=== PATIENT | male | born 1935 | race Hispanic/Latino ===

== ENCOUNTER 2019-01-02 17:19 | Inpatient (IN) | payer MEDICARE, OTHER ==
[2019-01-02] VITALS (7 sets, daily range): BP systolic 100–140; BP diastolic 44–88
[~2019-01-02] VITALS: Ht 162.6 cm; Wt 80.5 kg
[~2019-01-02 17:19] MED LIST: Z.0.AMLODIPINE BESYL PO; Z.0.ASPIRIN325 MG PO; Z.0.DIOVAN320 MG PO; Z.0.LEVOXYL50 MCG PO
--- OUTSIDE RECORDS SUMMARY | 2019-01-02 17:22 | XMS REPORT ---
Author Author [facility] Organization [facility] Address Unknown Phone Unavailable Care Team Providers Care Adoption Specialist Name Role Phone Unavailable Unavailable Payers Payer Name Policy Type Policy Number Effective Date Expiration Date Problems This patient has no known problems. Allergies, Adverse Reactions, Alerts Allergy Name Allergy Type Status Severity Reaction(s) Onset Date Inactive Date Treating Clinician Comments No Known Allergies DA Active U 2018-08-26 00:00:00 No Known Contrast Allergies DA Active U 2008-11-03 00:00:00 No Known Drug Allergies DA Active U 2008-11-03 00:00:00 No Known Food Allergies DA Active U 2008-11-03 00:00:00 No Known Other Allergies DA Active U 2008-11-03 00:00:00 Medications This patient has no known medications. Results Test Description Test Time Test Comments Text Results Atomic Results Result Comments PROTHROMBIN TIME 2018-08-26 14:17:00 PROTHROMBIN TIME PATIENT (test code=PTP) 11.1 seconds 9.0-14.0 INTERNATIONAL NORMAL RATIO (test code=INR) 0.9 0.8-1.2 The therapeutic range for oral anticoagulant therapy formost indications is an international normalized ratio (INR)of between 2.0 and 3.0. The recommended therapeutic INRrange for various clinical situations is listed below: Clinical Situation INR range Pulmonary e mbolism treatment (2.0-3.0)Venous thrombosis treatmentVenous thrombosis prophylaxis (high risk surgery)Prevention of systemic embolism from: Acute myocardial infarction Valvular heart disease Atrial fibrillation Mechanical prosthetic heart valves (2.5-3.5) THROMBOPLASTIN TIME [id number] 14:17:00* Test Item Value Reference Range Comments THROMBOPLASTIN TIME PARTIAL (test code=PTT) 29.1 seconds 25.0-36.5 BASIC METABOLIC [id number] 14:15:00* Test Item Value Reference Range Comments SODIUM (test code=NA) 136 mmol/L 136-145 POTASSIUM (test code=K) 4.6 mmol/L 3.5-5.1 CHLORIDE (test code=CL) 104.0 mmol/L 98-107 CARBON DIOXIDE (test code=CO2) 27.0 mmol/L 21-32 ANION GAP (test code=GAP) 9.6 10-20 GLUCOSE (test code=GLU) 75 mg/dL 74-106 BLOOD UREA NITROGEN (test code=BUN) 18 mg/dL 7-18 GLOMERULAR FILTRATION RATE (test code=GFR) > 60 mL/min >=60 Estimated GFR by using Modified MDRD formula.Chronic kidney disease is defined as either kidney damageor GFR <60 mL/min/1.73 m2 for >3 months. CREATININE (test code=CREAT) 0.90 mg/dL 0.7-1.3 BUN/CREATININE RATIO (test code=BUN/CREA) 21.1 10-20 CALCIUM (test code=CA) 9.1 mg/dL 8.5-10.1 BASIC METABOLIC [id number] 14:10:00* Test Item Value Reference Range Comments SODIUM (test code=NA) 136 mmol/L 136-145 POTASSIUM (test code=K) 4.6 mmol/L 3.5-5.1 CHLORIDE (test code=CL) 104.0 mmol/L 98-107 CARBON DIOXIDE (test code=CO2) mmol/L 21-32 ANION GAP (test code=GAP) 10-20 GLUCOSE (test code=GLU) mg/dL 74-106 BLOOD UREA NITROGEN (test code=BUN) mg/dL 7-18 GLOMERULAR FILTRATION RATE (test code=GFR) mL/min >=60 CREATININE (test code=CREAT) mg/dL 0.7-1.3 BUN/CREATININE RATIO (test code=BUN/CREA) 10-20 CALCIUM (test code=CA) mg/dL 8.5-10.1 CBC W/AUTO [id number] 14:06:00* Test Item Value Reference Range Comments WHITE BLOOD CELL (test code=WBC) 4.3 K/mm3 4.5-12.5 RED BLOOD CELL (test code=RBC) 4.48 mill/mm3 4.0-5.8 HEMOGLOBIN (test code=HGB) 14.4 gram/dL 13.0-17.5 HEMATOCRIT (test code=HCT) 43.9 % 42.0-52.0 MEAN CELL VOLUME (test code=MCV) 98.0 fL 80-98 MEAN CELL HGB (test code=MCH) 32.1 picogram 27.0-33.0 MEAN CELL HGB CONCETRATION (test code=MCHC) 32.8 gram/dL 33.0-36.0 RED CELL DISTRIBUTION WIDTH (test code=RDW) 12.6 % 11.6-16.2 RED CELL DISTRIBUTION WIDTH SD (test code=RDW-SD) 45.3 fL 37.0-51.0 PLATELET COUNT (test code=PLT) 179 K/mm3 150-450 MEAN PLATELET VOLUME (test code=MPV) 9.6 fL 6.7-11.0 NEUTROPHIL % (test code=NT%) 46.0 % 39.0-69.0 IMMATURE GRANULOCYTE % (test code=IG%) 0.2 % 0.0-5.0 LYMPHOCYTE % (test code=LY%) 34.4 % 25.0-55.0 MONOCYTE % (test code=MO%) 13.3 % 0.0-10.0 EOSINOPHIL % (test code=EO%) 4.9 % 0.0-5.0 BASOPHIL % (test code=BA%) 1.2 % 0.0-1.0 NUCLEATED RBC % (test code=NRBC%) 0.0 % 0-0 NEUTROPHIL # (test code=NT#) 1.98 K/mm3 1.8-7.7 IMMATURE GRANULOCYTE # (test code=IG#) 0.01 x10 3/uL 0-0.03 LYMPHOCYTE # (test code=LY#) 1.48 K/mm3 1.0-5.0 MONOCYTE # (test code=MO#) 0.57 K/mm3 0-0.8 EOSINOPHIL # (test code=EO#) 0.21 K/mm3 0.0-0.5 BASOPHIL # (test code=BA#) 0.05 K/mm3 0.0-0.2 NUCLEATED RBC # (test code=NRBC#) 0.00 K/mm3 0.0-0.1 MANUAL DIFF REQUIRED (test code=MDIFF) NO CBC W/AUTO [id number] 14:05:00* Test Item Value Reference Range Comments WHITE BLOOD CELL (test code=WBC) K/mm3 4.5-12.5 RED BLOOD CELL (test code=RBC) mill/mm3 4.0-5.8 HEMOGLOBIN (test code=HGB) 14.4 gram/dL 13.0-17.5 HEMATOCRIT (test code=HCT) 43.9 % 42.0-52.0 MEAN CELL VOLUME (test code=MCV) fL 80-98 MEAN CELL HGB (test code=MCH) picogram 27.0-33.0 MEAN CELL HGB CONCETRATION (test code=MCHC) gram/dL 33.0-36.0 RED CELL DISTRIBUTION WIDTH (test code=RDW) % 11.6-16.2 RED CELL DISTRIBUTION WIDTH SD (test code=RDW-SD) fL 37.0-51.0 PLATELET COUNT (test code=PLT) K/mm3 150-450 MEAN PLATELET VOLUME (test code=MPV) fL 6.7-11.0 NEUTROPHIL % (test code=NT%) % 39.0-69.0 IMMATURE GRANULOCYTE % (test code=IG%) % 0.0-5.0 LYMPHOCYTE % (test code=LY%) % 25.0-55.0 MONOCYTE % (test code=MO%) % 0.0-10.0 EOSINOPHIL % (test code=EO%) % 0.0-5.0 BASOPHIL % (test code=BA%) % 0.0-1.0 NEUTROPHIL # (test code=NT#) K/mm3 1.8-7.7 LYMPHOCYTE # (test code=LY#) K/mm3 1.0-5.0 MONOCYTE # (test code=MO#) K/mm3 0-0.8 EOSINOPHIL # (test code=EO#) K/mm3 0.0-0.5 BASOPHIL # (test code=BA#) K/mm3 0.0-0.2 - XR CHEST 2 [id number] 13:29:00 FAX: Red Cedeño MD [phone] [place]: O St: PRE FAX: Min Hurst MD [phone] Name: LOKI DANIELSON [facility] : 1935 Age/S: 83/M [address] [facility] Unit #: [id number] Loc: [place] [address] Phys: Min Mercer MD Acct: [id number] Dis Date: Status: PRE SDC PHONE #: [phone] Exam Date: 08/26/2018 1309 FAX #: [phone] Reason: PRE OP EXAMS: CPT CODE: [id number] XR CHEST 2 V 57999 HISTORY: PRE OP TECHNIQUE: PA and lateral chest x-ray COMPARISON: 11/02/08 FINDINGS: No airspace consolidation or pleural effusion. Cardiomegaly. Tortuous thoracic aorta with vascular calcification. Mediastinal silhouette is unremarkable. Thoracic spondylosis. IMPRESSION: No radiographic evidence of acute cardiopulmonary process. at 1327 Reported and signed by: Nisreen Ugalde D.O. CC: Red Osuna; Min Martel MD Technologist: RUHTY GOMEZ) Trnscrd Date/Time/By: 08/26/2018 (4181) : By: [email or web address] Orig Print D/T: S: 08/26/2018 (2699) PAGE 1 Signed Report
--- NOTE | 2019-01-02 18:02 | NUR ---
CALLED TO TREATMENT FOR BLOOD WORK/EKG. PATIENT IS IN CT SCAN
[2019-01-02 18:18] LABS: BASOPHILS % 0.6 % (0.0-1.0); EOSINOPHILS # (AUTO) 0.2 (0.0-0.4); EOSINOPHILS % 2.5 % (0.0-6.0); LYMPHOCYTES # (AUTO) 1.3 (1.0-3.2); LYMPHOCYTES % 20.7 % (18.0-39.1); MEAN CORPUSCULAR HEMOGLOBIN 32.5 pg (28-32); MEAN CORPUSCULAR HGB CONC 33.3 g/dL (31-35); MEAN CORPUSCULAR VOLUME 97.5 fL (81-99); MONOCYTES # (AUTO) 0.4 (0.2-0.8); MONOCYTES % 6.1 % (4.4-11.3); NEUTROPHILS # (AUTO) 4.5 (2.1-6.9); NEUTROPHILS % 69.8 % (38.7-80.0); PLATELET COUNT 137 x10e3/uL (140-360); RED CELL DISTRIBUTION WIDTH 12.2 % (11.7-14.4)
[2019-01-02 18:21] LABS: INR 0.96; PROTHROMBIN TIME 13.3 seconds (11.9-14.5)
[2019-01-02 18:22] LABS: PARTIAL THROMBOPLASTIN TIME 27.7 seconds (23.8-35.5)
[2019-01-02 18:29] LABS: ALANINE AMINOTRANSFERASE 13 IU/L (0-55); ALBUMIN 3.8 g/dL (3.5-5.0); ALBUMIN/GLOBULIN RATIO 1.3 (0.8-2.0); ALKALINE PHOSPHATASE 80 IU/L (40-150); ANION GAP 13.6 mmol/L (8-16); BLOOD UREA NITROGEN 21 mg/dL (7-26); BUN/CREATININE RATIO 20 (6-25); CALCIUM 9.4 mg/dL (8.4-10.2); CARBON DIOXIDE 26 mmol/L (22-29); CHLORIDE 102 mmol/L (98-107); CREATINE KINASE 84 IU/L (30-200); CREATININE, SERUM 1.07 mg/dL (0.72-1.25); EST GLOMERULAR FILTRATION RATE > 60 ML/MIN (60-); GLUCOSE 95 mg/dL (74-118); POTASSIUM 4.6 mmol/L (3.5-5.1); SODIUM 137 mmol/L (136-145)
[2019-01-02] MEDS ORDERED: ALTEPLASE 50 MG/VIAL (29 MILLION IU) IV ONE ×2 (18:45)
[2019-01-02] MEDS ORDERED: SODIUM CHLORIDE 0.9% 1000ML 1,000 ML IV SCH (18:54)
--- NOTE | 2019-01-02 19:05 | Diagnostic Imaging Report ---
Complete set of images available for interpretation at 6:55 PM. EXAMINATION: Head CT HISTORY: Status post fall. Left-sided weakness, evaluate for acute stroke. COMPARISON: None. TECHNIQUE: Multidetector axial images were obtained without contrast from the foramen magnum to the vertex . The images were reconstructed using brain and bone algorithms. Thin section brain images were reformatted into coronal and sagittal planes. Image quality: Motion/streaking artifact limits the evaluation of the skull base and posterior cranial fossa. Dose modulation, iterative reconstruction, and/or weight based adjustment of the mA/kV was utilized to reduce the radiation dose to as low as reasonably achievable. FINDINGS: Parenchyma: 1. Few scattered and mildly confluent periventricular white matter hypodensities, most likely nonspecific chronic microvascular ischemic changes. 2. Focal cortical and subcortical encephalomalacia in the right middle/inferior frontal gyrus and right inferior parietal lobule, likely the sequela from remote infarction. 3. No mass or hemorrhage. No CT evidence of acute territorial vascular insult. Extra-axial spaces:No abnormal density. No extra-axial fluid collections . Mild prominence of the bilateral frontal subarachnoid spaces without fluid collections. Brain volume: Slightly disproportionate bilateral parietal cortical volume both, there are facet: From remote insult as well. Ventricles: No hydrocephalus or displacement. Arteries: No density suggestive of thrombus. Dural sinuses: No abnormal density. Extra-axial spaces: No abnormal density. Foramen magnum: No mass, Chiari malformation, or basilar invagination. Sella: No obvious mass. Paranasal/mastoid sinuses: Imaged portions unremarkable. Skull/Scalp: No lytic or blastic lesions. No fractures. IMPRESSION: 1. No acute intracranial hemorrhage or cortical infarcts. 2. Chronic cortical infarcts in the right frontal and parietal lobes. 3. Mild chronic microvascular ischemic changes. Signed by: Dr. Mckenna Mayfield M.D. on 01/02/2019 7:02 PM
[2019-01-03] VITALS (21 sets, daily range): BP systolic 116–167; BP diastolic 35–116
[2019-01-03 05:18] LABS: BASOPHILS % 0.8 % (0.0-1.0); EOSINOPHILS # (AUTO) 0.3 (0.0-0.4); EOSINOPHILS % 5.8 % (0.0-6.0); HEMOGLOBIN 12.4 g/dL (14.0-18.0); LYMPHOCYTES # (AUTO) 1.8 (1.0-3.2); LYMPHOCYTES % 37.6 % (18.0-39.1); MEAN CORPUSCULAR HGB CONC 32.6 g/dL (31-35); MEAN CORPUSCULAR VOLUME 97.9 fL (81-99); MONOCYTES # (AUTO) 0.6 (0.2-0.8); NEUTROPHILS # (AUTO) 2.1 (2.1-6.9); NEUTROPHILS % 43.8 % (38.7-80.0); PLATELET COUNT 124 x10e3/uL (140-360); RED BLOOD COUNT 3.88 x10e6/uL (4.3-5.7); RED CELL DISTRIBUTION WIDTH 12.3 % (11.7-14.4)
[2019-01-03 05:34] LABS: ANION GAP 11.2 mmol/L (8-16); BLOOD UREA NITROGEN 20 mg/dL (7-26); BUN/CREATININE RATIO 23 (6-25); CARBON DIOXIDE 25 mmol/L (22-29); CHLORIDE 107 mmol/L (98-107); CREATININE, SERUM 0.87 mg/dL (0.72-1.25); EST GLOMERULAR FILTRATION RATE > 60 ML/MIN (60-); GLUCOSE 76 mg/dL (74-118); POTASSIUM 4.2 mmol/L (3.5-5.1); SODIUM 139 mmol/L (136-145)
[2019-01-03 11:04] LABS: PLATELET ESTIMATE SLIGHTLY DECREASED
[2019-01-03 11:05] LABS: PLATELET MORPHOLOGY COMMENT NORMAL
[2019-01-03] MEDS ORDERED: CETIRIZINE HCL10 M1 PO (11:37)
[2019-01-03] MEDS ORDERED: LOSARTAN POTAS100 MG PO (11:38)
[2019-01-03] MEDS ORDERED: METOPROLOL SUCC25 MG PO (12:28)
--- NOTE | 2019-01-03 14:54 | Consultation ---
DATE OF CONSULTATION: 01/03/2019 Cardiology Consultation CONSULTING PHYSICIAN: Hua Ryan MD, Interventional Cardiology. REASON FOR CONSULTATION: Stroke. HISTORY OF PRESENT ILLNESS: Mr. Mistry is an 83-year-old man with history of hypertension, dyslipidemia, and hypothyroidism, presenting with sudden onset of left-sided hemiparesis for which he received tPA in the ER. 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 Overnight, he had an episode of bradycardia into the 30s per nursing report, however, the patient was asleep at that time. He denies any episodes of lightheadedness or syncope. He denies any chest pain or shortness of breath. He has no current complaints at this point. REVIEW OF SYSTEMS: A 12-system review negative except for as noted above. ALLERGIES: NO KNOWN DRUG ALLERGIES. PAST MEDICAL HISTORY: As per HPI. CAD, PAD, carotid dz h/o L CEA SOCIAL HISTORY: Negative x3. FAMILY HISTORY: Noncontributory. PHYSICAL EXAMINATION: VITAL SIGNS: Temperature 97.2, heart rate 51, respiratory rate 18, blood pressure 128/64, and O2 saturation 96% on nasal cannula 3 L/minutes. GENERAL: In no acute distress, alert. NECK: No JVD. CHEST: Clear to auscultation. CARDIOVASCULAR: Regular rate and rhythm. Normal S1, S2. ABDOMEN: Soft, nontender. EXTREMITIES: Trace edema. CARDIOVASCULAR MEDICATIONS: Reviewed, 1. Atorvastatin 40 mg at bedtime. 2. Beta-marc and antihypertensives currently on hold and status post alteplase on tPA. LABORATORY DATA: Studies reviewed. White blood cells 4.8, hemoglobin 12.4, and platelets 124. INR 0.9. Sodium 139, potassium 4.2, chloride 107, bicarbonate 25, BUN 20, creatinine 0.8, glucose 76, calcium 9, and magnesium 2.1. ASSESSMENT: 1. Cerebrovascular accident, status post tPA. 2. Hypertension. 3. Dyslipidemia. 4. Frequent PACs on telemetry. 5. Sinus bradycardia, asymptomatic. 6. CAD: known occluded LAD (VPK TEACHER), severe heavy RCA dz 7. PAD: Severe BTK disease 8. Carotid dz h/o L CEA. RECOMMENDATIONS: 1. For now, continue telemetry monitoring and liberalize blood pressure control. 2. Continue statin. 3. Once okay with Neurology, resume aspirin 81 mg daily. 4. SCD in place. 5. Close monitoring for any confirmation of arrhythmia or afib or atrial flutter on tele. 6. Echo and carotid US reviewed: occluded R ICA, L vertebral A is not well visualized. Preserved LV systolic function. Hua Ryan MD AFV/MODSchuyler /[id number] MTDD
[2019-01-03] MEDS ORDERED: ONDANSETRON HCL INJ 2MG/ML 2ML 2 MG/ML VIAL IV PRN (15:15)
[2019-01-03] MEDS: FAMOTIDINE 20 MG TAB PO SCH (16:30)
--- NOTE | 2019-01-03 19:32 | Diagnostic Imaging Report ---
Examination: MRI BRAIN WO CONTRAST History: Weakness; stroke. Comparison studies: Head CT 01/02/2019 Technique: Sagittal T2; axial DWI, FLAIR, GRE or SWI, T1, Coronal FLAIR. Intravenous contrast: None Findings: Scalp: No abnormal signal. No masses. Bone marrow: Normal in signal intensity. Brain volume: Moderate generalized and mild biparietal volume loss. Ventricles: No hydrocephalus. Extra-axial spaces: No abnormalities. Parenchyma: There are cortical based areas of encephalomalacia and gliosis in the right middle and inferior frontal gyri, right inferior parietal lobule and lingual gyrus of the right occipital lobe. No masses, hemorrhage, or acute vascular insults. Suprasellar and sellar region: No abnormalities. Craniocervical junction: No abnormalities. The foramen magnum is patent. No Chiari malformations. Vessels: Normal flow-voids in the arteries and sinuses. Additional findings:None. IMPRESSION: 1. No acute infarct. 2. Mild chronic microvascular ischemic change. 3. Chronic cortical based infarcts, as above. Signed by: Dr. Loern Manriquez M.D. on 01/03/2019 7:29 PM
--- NOTE | 2019-01-03 19:38 | Diagnostic Imaging Report ---
Examination: MRA HEAD WO CONTRAST History: Weakness Comparison studies: None Technique: 3-D [id number] MR angiogram of the intracranial circulation was obtained. MIP images of the arteries were isolated into anterior and posterior intracranial circulations, 180 degree projections. Sagittal and coronal MPR images, and axial source images are available for evaluation. Findings: Internal carotid arteries: Patent. Anterior cerebral arteries: Patent A1 and A2. Middle cerebral arteries: Patent M1 and M2. Vertebrobasilar circulation: Absent flow related signal. Posterior cerebral arteries: Absent flow related signal. Anatomical variants: Anterior communicating arteries: Patent Posterior communicating arteries: Not visualized. Vertebral arteries:Not visualized. IMPRESSION: No flow related signal in the intracranial posterior circulation due to proximal occlusion as seen on 05/11/2014 CTA report. A conventional angiogram is recommended as stenosis has likely progressed and endovascular treatment may be necessary. Signed by: Dr. Loren Manriquez M.D. on 01/03/2019 7:35 PM
[2019-01-03] MEDS: ATORVASTATIN 40 MG TAB PO SCH (20:57)
[2019-01-03] MEDS ORDERED: ATORVASTATIN 20 MG TAB PO SCH (21:00)
--- NOTE | 2019-01-03 23:36 | Consultation ---
DATE OF CONSULTATION: 01/03/2019 Neurology Consult Note HISTORY OF PRESENT ILLNESS: Mr. Peña is an 83-year-old right-hand dominant man with past medical history significant for hypertension, hyperlipidemia, coronary artery disease, and questionable prior stroke, admitted to [facility] on January 02, 2019, with symptoms suspicious for stroke. At approximately 1500 hours on the day of admission, the patient experienced a sudden onset of dysarthria, questionable expressive aphasia, left facial droop, left hemiparesis, numbness affecting the left arm and left leg, poor balance, and impaired gait. Mr. Peña does not report a visual field cut or other disturbance, dizziness, or confusion. Shortly, after the onset of the above described symptoms, the patient's notified emergency medical services of the patient's symptoms. The reports being told by emergency medical services that the patient was "fine and did not need to go to the hospital." Approximately 2 hours after symptom onset, the patient's brought him to the emergency center at [facility] for further evaluation of his symptoms. In the emergency center at [facility], the patient's neurological examination was significant for left facial droop and left hemiparesis. A CT of the brain without contrast was performed. This study did not reveal evidence of recent large territorial ischemia or hemorrhage. The emergency center physician determined Mr. Peña was a viable candidate for treatment with intravenous thrombolytics. After conferring with me, Mr. Peña was treated with tPA 6.9 mg intravenously at 1920 hours, followed by an infusion of tPA 62.5 mg intravenously at 1941 hours. Once the infusion of intravenous thrombolytics was completed, Mr. Peña was admitted to the intensive care unit for close neurological monitoring. At present, the patient reports his symptoms have significantly improved as compared to yesterday when he presented to the emergency center at [facility]. REVIEW OF SYSTEMS: Dysarthria, questionable aphasia, left facial weakness and numbness, weakness of the left arm and left leg, numbness of the left arm and left leg, and impairment of balance and gait. PAST MEDICAL HISTORY: Hypertension, hyperlipidemia, coronary artery disease, thyroid disease, and questionable prior stroke. PAST SURGICAL HISTORY: Cardiac catheterization, left carotid endarterectomy, lumbar spine surgery, and bilateral cataract removal. PAST HOSPITALIZATIONS: Surgeries/procedures as listed. FAMILY MEDICAL HISTORY: Hypertension, coronary artery disease with myocardial infarction. SOCIAL HISTORY: Mr. Peña is . He is retired. The patient does not report current or prior tobacco or recreational drug use. Mr. Peña reports occasional alcohol use. HOME MEDICATIONS: Reviewed. Please see the list of home medications available in the electronic medical record. HOSPITAL MEDICATIONS: Reviewed. Please see the list of hospital medications available in the electronic medical record. ALLERGIES: NO KNOWN DRUG ALLERGIES. NO KNOWN FOOD ALLERGIES. NO KNOWN ALLERGIES TO LATEX. NO KNOWN ALLERGIES TO IODINE OR OTHER CONTRAST MATERIALS. PHYSICAL EXAMINATION: VITAL SIGNS: Height 64 inches, weight 171 pounds, BMI 29.4 kg/m2, blood pressure 144/62 mmHg, pulse 52 beats per minute, respiratory rate 20 breaths per minute, and oxygen saturation 97% on 2 L by nasal cannula. GENERAL: The patient is awake and alert, does not appear distressed. Overweight. HEENT: Normocephalic and atraumatic. Pupils are surgical. Moist mucous membranes. NECK: Supple. No appreciable thyromegaly. No appreciable carotid bruits. CARDIOVASCULAR: S1, S2, bradycardic, regular rhythm. No murmurs, rubs, or gallops. RESPIRATORY: Clear to auscultation bilaterally. No wheezes, rhonchi, or rales. EXTREMITIES: The skin is warm and dry. No clubbing, cyanosis, or edema. The posterior tibial and dorsalis pedis pulses are trace and symmetric. SKIN: No rashes or lesions. NEUROLOGIC: Memory/Attention: The patient is awake and alert, oriented to person, place, time, and situation. Cranial Nerves: Cranial nerve I - not tested. Cranial nerves II, III, IV, and - pupils are surgical. Extraocular movements intact. No nystagmus. Cranial nerve V - sensation to light touch and pinprick is intact in the bilateral V1 through V3 distributions. Strength of the temporalis and masseter muscles are within normal limits. Cranial nerve VII - the face is asymmetric on the left as are all facial movements. Very mild left central facial weakness is appreciated. Cranial nerve VIII - hearing is intact to finger rub bilaterally. Cranial nerves IX, X - the soft palate elevates equally and symmetrically. Cranial nerve XI - normal strength of the bilateral sternocleidomastoid and trapezius muscles. Cranial nerve XII - the tongue protrudes midline and moves symmetrically from [id number]-[id number]. Strength: Bulk is normal. Strength is 5/5 in the bilateral deltoids, biceps, triceps, wrist flexors and extensors, finger flexors and extensors, intrinsic hand muscles, hip flexors, knee flexors and extensors, ankle dorsiflexion and plantar flexion, and intrinsic foot muscles except as follows: Left triceps 4+/5, left wrist extensors 4+/5, left finger extensors 4/5, left finger flexors 4+/5, bilateral ankle dorsiflexion 4/5. Tone is normal in both arms and both legs. DTRs: Deep tendon reflexes are 2+ and symmetric at the triceps, biceps, brachioradialis, and patellas. Deep tendon reflexes are absent and symmetric at the Achilles. Plantar responses are flexor on the right and mute on the left. Sensation: Sensation is intact to light touch and pinprick in both arms and both legs. Cerebellar: Gjrehq-jqlw-xgcrra and heel-escalante movements are mildly impaired in the left arm, not within the bounds of paresis. Gait: Deferred. Speech: Spontaneous speech is mildly dysarthric without aphasia. Repetition is intact. Involuntary Movements: None. Pronator Drift: None. LABORATORY DATA: A comprehensive metabolic panel is within normal limits. The CBC with differential and platelets reveals a white blood cell count of 4.82 with a normal differential. The hemoglobin and hematocrit are 12.4 and 38.0, respectively. The platelet count is 124. The coagulation profile is within normal limits. DIAGNOSTIC STUDIES: Electrocardiogram on 01/02/2019: Atrial fibrillation with slow ventricular response at 53 beats per minute. However, the patient's lock and dam operator, Dr. Briceno, did not believe the patient experienced atrial fibrillation. CT of the brain without contrast on 01/02/2019: On my review, there is no evidence of recent large territorial ischemia, hemorrhage, mass, or mass effect. Chronic cortical infarcts are seen in the right frontal and parietal lobes. There are findings compatible with ylbe-wa-[id number] chronic small-vessel ischemic disease. Echocardiogram on 01/03/2019: Pending. Bilateral carotid artery ultrasound with Doppler on 01/03/2019: There is atherosclerosis with possible hemodynamically significant stenosis at the right internal carotid artery. Specifically, the right internal carotid artery is not visualized. There is atherosclerosis without hemodynamically significant stenosis in the left carotid artery system with possible endarterectomy noted. There is a plaque distal to the common carotid artery. Flow is antegrade in the bilateral vertebral arteries. ASSESSMENT AND PLAN: Mr. Peña is an 83-year-old right-hand dominant man with past medical history as detailed, admitted to [facility] on January 02, 2019, with symptoms suspicious for stroke, status post tPA. At present, the patient's neurological examination is significant for mild left hemiparesis. His laboratory data and other diagnostic studies have been reviewed and are documented above. RECOMMENDATIONS: Are as follows: 1. A lipid panel and hemoglobin A1c will be ordered with morning labs. 2. An MRI of the brain without contrast will be ordered. 3. An MRA of the brain and neck without contrast will be ordered to further evaluate possible hemodynamically significant stenosis in the right carotid artery system. 4. No antiplatelet or anticoagulant medications for approximately 24 hours, status post tPA. May resume treatment with aspirin 81 mg by mouth daily on January 04, 2019. As discussed with the patient's lock and dam operator, Dr. Briceno, if there is no further evidence of atrial fibrillation during the patient's hospitalization, escalation to treatment with Plavix 75 mg by mouth daily for stroke prophylaxis will be recommended. If the patient is found to have paroxysmal atrial fibrillation, anticoagulation will be recommended. 5. Allow permissive hypertension for 24-48 hours, status post stroke. In addition, the degree of stenosis in the right carotid artery system should be determined prior to normalizing blood pressure. In all likelihood, blood pressure may begin to be gradually normalized on January 04, 2019. In the interim, monitor vital signs per unit protocol. 6. The patient's goal total cholesterol is less than 200 with an LDL of less than 70. Follow up the results of the lipid panel. 7. The patient's goal hemoglobin A1c is less than 7.0. Follow up the results of the hemoglobin A1c. Tight glycemic control is recommended, while the patient is hospitalized. 8. Speech and Physical Therapy consultations will be ordered. 9. GI prophylaxis with Pepcid 20 mg by mouth twice daily with meals. DVT prophylaxis with ARTHUR hose and SCDs. Beginning on January 04, 2019, heparin 5000 units subcutaneously q.12 hours will be prescribed for DVT prophylaxis. 10. Defer treatment of the remaining medical comorbidities to the primary and other services following the patient. Thank you for this consultation. I will continue to follow the patient, while he remains in the hospital. TIME SPENT: 70 minutes. Carolyn Zuleta MD CP/VIKKI /[id number] MTDD
[2019-01-04] VITALS (24 sets, daily range): BP systolic 129–180; BP diastolic 49–110
--- NOTE | 2019-01-04 01:31 | History and Physical ---
CHIEF COMPLAINT: Slurred speech, facial drooping, weakness. HISTORY OF PRESENT ILLNESS: This gentleman is an 83-year-old male with past medical history of hypertension, hypothyroidism, who apparently came into the ED with underlying slurred speech, facial drooping, requiring tPA in the ER. The patient and the family reports that he was trying to pickle pumper a piece of paper on the ground yesterday and as he was grabbing that paper when he stood up, he noticed that he got a little lightheaded and dizzy. noticed he had facial droop and slurred speech with drooling and was concerned for stroke and he came into the ER via EMS for further management and care. While here, the ER physician evaluated the patient. The NIH score seemed to be high according to the reports and felt that tPA was necessary. The patient also had some left-sided extremity weakness as well during that evaluation by the ER physician. TPA was given and the patient was sent to the ICU for further management and care. The patient is currently doing well. He is moving all extremities. Alert and oriented x4. No slurred speech. No facial drooping and he is able to move all extremities with no complaints. The patient is now back to normal baseline with no other issues. The patient seen and evaluated at bedside on the medical floor in the ICU. He is currently doing well with no other issues at this time. Neurology has been consulted as well as Cardiology. There are some episodes of bradycardia, hence further Cardiology consultation. REVIEW OF SYSTEMS: Pertinent positives: Slurred speech, facial droop, extremity weakness. Pertinent negatives: Denies any chest pain, palpitation, nausea, vomiting, diarrhea, dysuria, hematuria, frequency, urgency, lightheadedness, dizziness, abdominal pain, headaches, shortness of breath, cough, congestion, fever, or any other complaints. The rest of the 14-point review of systems have been reviewed with the patient and are negative. ALLERGIES: NO KNOWN DRUG ALLERGIES. HOME MEDICATIONS: 1. Amlodipine 5 mg daily. 2. Losartan 100 mg daily. 3. Metoprolol extended release 25 mg daily. 4. Levothyroxine 50 mcg daily. PAST MEDICAL HISTORY: He has hypothyroidism, hypertension. PAST SURGICAL HISTORY: Reports none. FAMILY HISTORY: Hypertension and diabetes. SOCIAL HISTORY: No drugs. No alcohol. Does not smoke. . He is . Good social support. LABORATORY FINDINGS: Show white count 4.8, hemoglobin 12.4, hematocrit of 38, platelets of 124. Coagulation PT 13, INR 0.96, PTT 27.7. Chemistry; sodium was 137, potassium 4.2, chloride 107, bicarb 25, anion gap is 11. BUN is 20, creatinine is 0.87, glucose is 76. Calcium is 9, magnesium 2.1. LFTs were normal. Troponins were negative. Albumin was 3.8. MICROBIOLOGY: None. IMAGING STUDIES: CT brain shows no acute intracranial hemorrhage or cortical infarct. 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 Mild chronic microvascular ischemic changes. PHYSICAL EXAMINATION: VITAL SIGNS: Temperature is 97.2, pulse is 52, respiratory rate is 18, blood pressure is 155/66, pulse ox 97% on 3 L nasal cannula. GENERAL: Not in acute distress. Alert and oriented x3. Cooperative on examination. HEENT: Head is normocephalic and atraumatic. Eyes; pupils are equal, round, and reactive to light bilaterally. Extraocular movements intact bilaterally. Throat, no evidence of any erythema or exudates in the posterior pharynx. Has poor dentition. NECK: Supple. Good range of motion. PULMONARY: Clear to auscultation bilaterally. No wheezing, no rales, no rhonchi, no crackles appreciated. CARDIOVASCULAR: Positive S1 and S2. No murmurs, rubs, or gallops appreciated. ABDOMEN: Soft, nondistended, nontender to palpation. Bowel sounds present. MUSCULOSKELETAL: Strength was 5/5 throughout. No evidence of any muscle deficits on examination. No weakness appreciated. NEUROLOGIC: Cranial nerves 2 through 12 grossly intact. No evidence of any neurological deficits on exam. SKIN: Intact. Warm to touch. Good cap refill. PSYCHIATRIC: Normal affect and mood. EXTREMITIES: No edema. Good range of motion throughout. IMPRESSION: 1. Acute cerebrovascular accident, now resolved, status post tPA given. 2. Hypertension. 3. Hypothyroidism. 4. Generalized weakness. PLAN: At this time, the patient is doing great with no deficits at all. He is status post tPA. Neurology was consulted. Aspirin and statins have been initiated. The patient is now on DVT prophylaxis per Neurology. MRI of brain will be up to Neurology. Carotid ultrasound is pending. Follow Neurology recommendations. We will go ahead and hold antihypertensive medications for now to avoid any worsening CVA if indicated. In relation to his heart rate, we will hold beta-marc. Cardiology was consulted and manage accordingly. Continue with PT and OT evaluation. He is on heparin for DVT prophylaxis. He will be on a heart healthy diet. He will also have speech therapy. MD MIKE Betts/MODL /[id number]
[2019-01-04] MEDS: ACETAMINOPHEN 325 MG TAB PO PRN (03:11)
[2019-01-04 05:48] LABS: CHOL/HDL RATIO 2.4 (3.9-4.7)
[2019-01-04] MEDS: LEVOTHYROXINE SODIUM 50 MCG TAB PO SCH (05:56)
[2019-01-04] MEDS: FAMOTIDINE 20 MG TAB PO SCH ×2 (07:33→16:33)
[2019-01-04] MEDS: ASPIRIN 81 MG ENTERIC COATED PO SCH (08:31)
[2019-01-04] MEDS: HEPARIN SOD (PORCINE) 5,000 UNIT/ML VIAL SC SCH ×2 (08:32→20:17)
[2019-01-04 10:28] LABS: CREATININE, SERUM 0.93 mg/dL (0.72-1.25)
[2019-01-04] MEDS: SENNOSIDES 8.6 MG TAB PO SCH ×2 (10:31→16:33)
[2019-01-04] MEDS ORDERED: SODIUM CHLORIDE 0.9% 100 ML 100 ML ONE (17:07)
[2019-01-04] MEDS ORDERED: IOPAMIDOL 370 MG/ML 200 ML INFUS..BTL INJ ONE (17:08)
--- NOTE | 2019-01-04 17:19 | Diagnostic Imaging Report ---
CTA NECK HISTORY: Carotid stenosis COMPARISON: CTA of the neck 05/11/2014, head CT 01/02/2019, MRI of the brain 01/03/2019 and MRA of the head 01/03/2019 TECHNIQUE: CTA of the neck was performed with intravenous iodine based contrast. Coronal, sagittal, and oblique maximum intensity projection reformations were created. One or more of the following dose reduction techniques were used: Automated exposure control, adjustment of the mA and/or kV according to patient size, and/or utilization of iterative reconstruction technique. DISCUSSION: If present, any cervical carotid stenosis will be measured as a percentage relative to the [place] artery distal to the stenosis (NASCET). Bolus streak artifacts in the left subclavian region obscure some details. There are prominent calcifications in the aortic arch and proximal great vessels Right Carotid: Moderate to severe calcified plaque at the right carotid bulb causes up to 70% focal stenosis in the proximal right internal carotid artery. The right internal carotid artery is tortuous with a retropharyngeal course. Left Carotid: Mild to moderate calcified plaque at the left carotid bulb does not cause significant stenosis. Surgical clips are seen adjacent to the proximal left external carotid artery. Right vertebral artery: Mild to moderate focal stenosis at the right vertebral artery ostium due to calcified plaque. Mild calcified plaque in the V3 segment without significant stenosis. Left vertebral artery: The left vertebral artery is occluded near the ostium. There is minimal focal reconstitution in the upper V2 segment. No other significant reconstitution is seen (including in the visualized intradural segment). The intracranial arterial vasculature is partially visualized. Right intradural vertebral artery calcified plaque is present without significant stenosis. The basilar artery is poorly opacified. The proximal posterior cerebral arteries are grossly patent, left greater than right; however, there is poor opacification of the bilateral distal posterior cerebral artery branches. Bilateral carotid siphon calcifications are present without significant stenosis. Additional findings: Both ocular lenses are thinned. There are severe degenerative changes throughout the spine. Enlarged pulmonary artery suggests pulmonary hypertension. IMPRESSION: 1. 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 There is minimal focal reconstitution in the upper V2 segment. 2. 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 3. Mild to moderate focal stenosis at the right vertebral artery ostium due to calcified plaque. 4. Moderate to severe calcified plaque at the right carotid bulb causes up to 70% focal stenosis in the proximal right internal carotid artery. 5. Mild to moderate left carotid bulb calcified plaque without significant stenosis. Signed by: Dr. Mark Carrillo M.D. on 01/04/2019 5:16 PM
--- NOTE | 2019-01-04 18:14 | Progress Note ---
DATE: 01/04/2019 Cardiology Progress Note SUBJECTIVE: Right-sided headache in the occipital area. Denies any episodes of worsening weakness, numbness, changes in speech, vision or gait since we last talked. Denies any current chest pain or shortness of breath. OBJECTIVE: VITAL SIGNS: Temperature 98.2, heart rate 50, respiratory rate 16, blood pressure 152/60, O2 saturation 97% on 3 L/minute nasal cannula. On telemetry view, he remains in sinus rhythm and sinus bradycardia with occasional PVCs. So far, no confirmation of atrial fibrillation or atrial flutter. GENERAL: In no acute distress. Alert. NECK: No JVD. CHEST: Clear to auscultation. CARDIOVASCULAR: Regular rate and rhythm. Normal S1 and S2. No S3 or S4. ABDOMEN: Soft, nontender. EXTREMITIES: Trace edema. CARDIOVASCULAR MEDICATIONS: 1. Aspirin 81 mg daily. 2. Heparin 5000 units subcu q.12 hours. 3. Atorvastatin 40 mg at bedtime. LABORATORY STUDIES: White blood cells 4.8, hemoglobin 12.4, platelets 124, and those are from yesterday. Today's creatinine is 0.9, triglycerides 70, total cholesterol 115, LDL 53, HDL 48. ASSESSMENT: 1. Cerebrovascular accident versus transient ischemic attack, status post tPA with no evidence of acute infarct on MRI. 2. Carotid disease, status post left carotid endarterectomy in the past by Dr. York and now with Doppler findings concerning for right internal carotid artery occlusion, pending confirmation with CT ongoing today. 3. Hypertension. 4. Dyslipidemia. 5. Frequent PACs. 6. Sinus bradycardia, so far asymptomatic. 7. Multivessel coronary artery disease with known occluded left anterior descending and severe stenosis and heavily calcified right coronary artery. 8. Peripheral artery disease with severe ztzxv-utb-zzil vessel disease, mostly filling via collaterals. RECOMMENDATIONS: 1. Aspirin. 2. Statin high potency. 3. DVT prophylaxis. 4. Continue on telemetry. 5. Has preserved left ventricular systolic function on echocardiogram. 6. Await confirmation of CT findings for carotid disease if completely occluded ICA. No further interventions may be warranted at this point, however, if stenosed, may need further workup. We will coordinate care with Neurology. Hua Ryan MD AFV/DENNISL /[id number]
[2019-01-04] MEDS: ATORVASTATIN 40 MG TAB PO SCH (20:15)
[2019-01-04] MEDS: HYDROCODONE/APAP 5MG-325MG TAB PO PRN (23:07)
[2019-01-05] VITALS (25 sets, daily range): BP systolic 113–179; BP diastolic 45–79
[2019-01-05] MEDS: ACETAMINOPHEN 325 MG TAB PO PRN (04:48)
[2019-01-05 05:29] LABS: BASOPHILS % 0.7 % (0.0-1.0); EOSINOPHILS # (AUTO) 0.3 (0.0-0.4); EOSINOPHILS % 4.8 % (0.0-6.0); HEMATOCRIT 38.6 % (38.2-49.6); HEMOGLOBIN 12.9 g/dL (14.0-18.0); LYMPHOCYTES # (AUTO) 1.7 (1.0-3.2); LYMPHOCYTES % 30.7 % (18.0-39.1); MEAN CORPUSCULAR HEMOGLOBIN 32.2 pg (28-32); MEAN CORPUSCULAR HGB CONC 33.4 g/dL (31-35); MEAN CORPUSCULAR VOLUME 96.3 fL (81-99); MONOCYTES # (AUTO) 0.6 (0.2-0.8); MONOCYTES % 11.1 % (4.4-11.3); NEUTROPHILS % 52.3 % (38.7-80.0); PLATELET COUNT 145 x10e3/uL (140-360); RED BLOOD COUNT 4.01 x10e6/uL (4.3-5.7); RED CELL DISTRIBUTION WIDTH 12.1 % (11.7-14.4)
[2019-01-05 06:00] LABS: ANION GAP 13.9 mmol/L (8-16); BLOOD UREA NITROGEN 18 mg/dL (7-26); BUN/CREATININE RATIO 18 (6-25); CARBON DIOXIDE 25 mmol/L (22-29); CHLORIDE 105 mmol/L (98-107); EST GLOMERULAR FILTRATION RATE > 60 ML/MIN (60-); GLUCOSE 84 mg/dL (74-118); POTASSIUM 3.9 mmol/L (3.5-5.1); SODIUM 140 mmol/L (136-145)
[2019-01-05] MEDS: LEVOTHYROXINE SODIUM 50 MCG TAB PO SCH (06:38)
[2019-01-05] MEDS: FAMOTIDINE 20 MG TAB PO SCH ×2 (07:30→17:31)
--- NOTE | 2019-01-05 08:00 | NUR ---
Patient received awake and alert and Ox3. Respirations are even and unlabored. Denies any pain or discomfort at this time. at bedside. Assisted patient with setting up his breakfast tray.
[2019-01-05] MEDS: HEPARIN SOD (PORCINE) 5,000 UNIT/ML VIAL SC SCH ×2 (09:00→21:05)
[2019-01-05] MEDS: ASPIRIN 81 MG ENTERIC COATED PO SCH (09:00)
[2019-01-05] MEDS: SENNOSIDES 8.6 MG TAB PO SCH ×2 (09:00→17:31)
--- NOTE | 2019-01-05 10:30 | NUR ---
Dr. Zuleta (Neuro) here at bedside and speaking with patient and regarding CTA results.
[2019-01-05] MEDS: AMLODIPINE BESYLATE 5 MG TAB PO SCH (10:47)
--- NOTE | 2019-01-05 15:05 | NUR ---
Visit made by the Spiritual Care Department Pastoral Visitor, Aris Huggins. PV provided pastoral presence, hospitality, and supportive listening. Pastoral Visitor informed pt/family of the scope of Complaint Investigations Officer Services and availability. [facility] Spiritual Care Department O: [phone] Pager: [phone] ([phone] calling from)
--- NOTE | 2019-01-05 21:02 | NUR ---
Dr Briceno here for rounds. Patient c/o dry eyes, new orders received. Dr. Briceno states patient is stable for transfer from ICU or even discharge home from his standpoint. Instructed patient not to resume home medication of Metoprolol upon discharge and to follow up with him in his office as outpatient
[2019-01-05] MEDS: ATORVASTATIN 40 MG TAB PO SCH (21:04)
[2019-01-05] MEDS: HYDROCODONE/APAP 5MG-325MG TAB PO PRN (21:05)
[2019-01-05] MEDS ORDERED: EYE LUBRICANT OPTH OINT 3.5GM TUBE OP PRN (21:15)
[2019-01-06] VITALS (20 sets, daily range): BP systolic 129–166; BP diastolic 64–91
--- NOTE | 2019-01-06 00:22 | Progress Note ---
DATE: 01/05/2019 Cardiology Progress Note SUBJECTIVE: Denies any chest pain or shortness of breath. Denies any new episodes of weakness, numbness, changes in speech, vision, or gait. Headache has improved. On telemetry, in sinus bradycardia with frequent PACs. No evidence of atrial fibrillation or atrial flutter so far on review of at least 48 hours of rhythm strips. Furthermore, previous EKG read by machine as atrial fibrillation was actually sinus bradycardia with frequent PACs. OBJECTIVE: VITAL SIGNS: Temperature 98.4, heart rate 56, respiratory rate 19, blood pressure 157/68, O2 saturation 95% on 3 L/minute nasal cannula. GENERAL: In no acute distress, alert. NECK: No JVD. Has supple neck. CHEST: Clear to auscultation. CARDIOVASCULAR: Regular rate and rhythm. Normal S1 and S2. No S3 or S4. Frequent extra beats. Systolic ejection murmur 2/6. ABDOMEN: Soft, nontender. EXTREMITIES: Trace edema. CARDIOVASCULAR MEDICATIONS: Reviewed. Heparin 5000 units subcu q.12 hours, atorvastatin 40 mg at bedtime, amlodipine 5 mg daily, aspirin 81 mg daily. LABORATORY DATA: White blood cells 5.6, hemoglobin 12.9, platelets 145. Sodium 140, potassium 3.9, chloride 105, bicarbonate 25, BUN 18, creatinine 1, glucose 84, hemoglobin A1c was 5.4, calcium 9, triglycerides 70, total cholesterol 115, LDL 53, HDL 48, TSH 4.1. 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 There is associated known occlusion of the vascular artery with decreased filling of the posterior cerebral arteries, right greater than left. There is mhoa-rf-cctbbkhm focal stenosis of the right vertebral artery at ostium due to calcified plaque. There is cllodwos-tq-oedsoi calcified plaque at the right carotid bulb with 70% focal stenosis of the proximal right internal carotid artery and there is abjb-sm-fqfdlmhg left carotid bulb calcified plaque without hemodynamically significant stenosis. ASSESSMENT: 1. An 83-year-old man presenting with symptoms concerning for right hemispheric transient ischemic attack/cerebrovascular accident, now status post tPA. 2. Carotid disease, status post left carotid endarterectomy in the past by Dr. York by CT angiogram with severe stenosis of the right ICA. 3. Hypertension. 4. Dyslipidemia. 5. Sinus bradycardia. 6. Frequent premature atrial contractions. 7. Multivessel coronary artery disease with known occluded LAD and severe stenosis and heavily calcified RCA, with stable angina. 8. Peripheral arterial disease with severe bgcbh-jyg-srnq vessel disease, filling mostly via collaterals. 9. Preserved left ventricular systolic function on echocardiogram done on this admission. RECOMMENDATIONS: 1. Aspirin. 2. Up titrate the statin potency. 3. If Neurology prefers, can switch on discharge aspirin to clopidogrel 75 mg daily. 4. Outpatient telemetry monitoring no atrial fibrillation develops while in the hospital, so far no confirmation of these. 5. We will have elevated risk for adverse cardiovascular outcomes with carotid surgery, particularly because of the severe baseline CAD. Unfortunately, given sinus bradycardia, he is not a current candidate for the use of beta-marc. Once permissive hypertensive period is completed, can consider up titration of amlodipine further as part of antianginal strategy as well as antihypertensive strategy. This can be further done as an outpatient. If discharged home, please instruct patient on followup with Cardiology as well as with CV Surgery and Neurology within the ensuing 1 to 2 weeks. Hua Ryan MD AFV/MODL /[id number]
[2019-01-06] MEDS: LEVOTHYROXINE SODIUM 50 MCG TAB PO SCH (05:20)
[2019-01-06] MEDS: ACETAMINOPHEN 325 MG TAB PO PRN (05:20)
[2019-01-06] MEDS: CLOPIDOGREL BISULFATE 75 MG TAB PO SCH (09:13)
[2019-01-06] MEDS: FAMOTIDINE 20 MG TAB PO SCH ×2 (09:13→16:51)
[2019-01-06] MEDS: AMLODIPINE BESYLATE 5 MG TAB PO SCH (09:13)
[2019-01-06] MEDS: SENNOSIDES 8.6 MG TAB PO SCH ×2 (09:14→16:51)
[2019-01-06] MEDS: HEPARIN SOD (PORCINE) 5,000 UNIT/ML VIAL SC SCH ×2 (09:15→21:30)
--- NOTE | 2019-01-06 16:32 | NUR ---
Report called to JOSE JUAN Kasper for Room 214.
--- NOTE | 2019-01-06 17:00 | Progress Note ---
DATE: 01/06/2019 Cardiology Progress Note SUBJECTIVE: No acute event. OBJECTIVE: VITAL SIGNS: Temperature afebrile, heart rate 52, blood pressure 162/76, respirations 13, and O2 saturation 97% on 3 liters. GENERAL: No acute distress. NECK: No JVD. CHEST: Clear to auscultation. No wheeze. CARDIOVASCULAR: Bradycardic and regular. Normal S1 and S2. Frequent ectopy. Systolic ejection murmur 2/6. ABDOMEN: Soft and nontender. EXTREMITIES: Trace edema. CARDIOVASCULAR MEDICATIONS: Please refer to chart. LABORATORY DATA: No new labs. ASSESSMENT: 1. An 83-year-old man with acute right hemispheric transient ischemic attack/cerebrovascular accident, now status post tPA. 2. Carotid artery disease, status post left carotid endarterectomy. 3. Hypertension. 4. Dyslipidemia. 5. Sinus bradycardia. 6. Multivessel coronary artery disease with known occluded left anterior descending and severe stenosis and heavily calcified right coronary artery with stable angina. 7. Peripheral arterial disease with severe below the knee vessel disease filling mostly via collaterals. 8. Chronic diastolic heart failure. RECOMMENDATIONS: 1. Continue supportive care including permissive hypertension for now. 2. Continue aspirin and statin. 3. The patient will require outpatient event monitor to evaluate for atrial fibrillation. 4. Okay to transfer to [facility] from cardiovascular standpoint. 5. We will continue to follow the patient with you. Cross cover for Dr. Hua Ryan. MD GRAY Bauman/VIKKI /[id number]
--- NOTE | 2019-01-06 18:51 | NUR ---
Transferred patient to room 214 via bed.
--- NOTE | 2019-01-06 19:30 | NUR ---
PATIENT RECEIVED. PATIENT IS RESTING IN BED, ALERT AND ORIENTED. RESP EVEN AND UNLABORED. NO ACUTE DISTRESS NOTED. TELE IN PLACE. PATIENT DENIED OF ANY PAIN OR DISCOMFORT AT THIS TIME. FAMILY AT BED SIDE. CALL LIGHT WITH REACH. BED LOW/LOCKED. CONTINUE TO MONITOR CLOSELY
[2019-01-06] MEDS: ATORVASTATIN 40 MG TAB PO SCH (20:27)
[2019-01-07] VITALS (7 sets, daily range): BP systolic 108–160; BP diastolic 60–71
[2019-01-07] MEDS: LEVOTHYROXINE SODIUM 50 MCG TAB PO SCH (05:10)
[2019-01-07] MEDS: ACETAMINOPHEN 325 MG TAB PO PRN (06:36)
[2019-01-07] MEDS: CLOPIDOGREL BISULFATE 75 MG TAB PO SCH (09:04)
[2019-01-07] MEDS: SENNOSIDES 8.6 MG TAB PO SCH ×2 (09:04→16:56)
[2019-01-07] MEDS: FAMOTIDINE 20 MG TAB PO SCH ×2 (09:04→16:56)
[2019-01-07] MEDS: HEPARIN SOD (PORCINE) 5,000 UNIT/ML VIAL SC SCH ×2 (09:05→21:30)
--- NOTE | 2019-01-07 10:33 | NUR ---
ST NOTE: Pt currently working with PT. PT reports pt coughing with breakfast and now has wet vocal quality. Requesting MBS prior to pt d/c to rule out aspiration. Handoff to JOSE JUAN Kasper
[2019-01-07] MEDS: AMLODIPINE BESYLATE 5 MG TAB PO SCH (12:29)
--- NOTE | 2019-01-07 13:12 | NUR ---
CM SPOKE TO PATIENT AND PATIENT AT BEDSIDE REGARDING HOME HEALTH, HOME OXYGEN AND DME ORDERED BY MD. WE ARE PENDING HOME O2 EVAL BY RESPIRATORY THERAPY. PATIENT GIVEN CHOICES FOR HOME HEALTH AND DME COMPANIES. PATIENT REQUEST [facility] SO THEY CAN HAVE DME PRIOR TO DISCHARGE AND PATIENT CHOSE [facility] FOR HOME HEALTH SERVICES. [facility] UNABLE TO TAKE PATIENT INSURANCE. PATIENT AGREED TO [facility]. CLINICAL SENT TO [facility] AND [facility] DELIVERED TO BEDSIDE. [facility] (P) [phone] (F) [phone]
--- NOTE | 2019-01-07 13:12 | NUR ---
DISCHARGE DISPOSITION PATIENT DISCHARGING HOME WITH HOME HEALTH AND DME ([facility]): [facility] (P) [phone] (F) [phone]
--- NOTE | 2019-01-07 16:31 | Progress Note ---
DATE: 01/07/2019 Cardiology Progress Note SUBJECTIVE: No acute events. OBJECTIVE: VITAL SIGNS: Temperature is 97.9, heart rate is 59, blood pressure is 147/67, and respirations 20. GENERAL: No acute distress. NECK: No JVD. CHEST: Clear to auscultation. No wheeze. CARDIOVASCULAR: Bradycardic and regular. Normal S1 and S2. Soft systolic ejection murmur. ABDOMEN: Soft and nontender. EXTREMITIES: Trace edema. CARDIOVASCULAR MEDICATIONS: Please refer to chart. LABORATORY DATA: No new labs. ASSESSMENT: 1. An 83-year-old man with acute right hemispheric transient ischemic attack/cerebrovascular event, now status post tPA. 2. Carotid artery disease, status post left carotid endarterectomy. 3. Hypertension. 4. Dyslipidemia. 5. Sinus bradycardia. 6. Multivessel coronary artery disease with known occluded left anterior descending and severe stenosis and heavily calcified right coronary artery with stable angina. 7. Peripheral arterial disease with severe below the knee vessel disease filling mostly via collaterals. 8. Chronic diastolic heart failure. RECOMMENDATIONS: 1. The patient has been transferred to telemetry from ICU and is hemodynamically stable. Continue current regimens. Blood pressure is stable. 2. Continue aspirin and statin. 3. The patient will require outpatient event monitor to evaluate for atrial fibrillation. 4. The patient will require follow up with cardiovascular surgeon, Dr. York for evaluation of carotid artery disease to determine if the patient will benefit from CEA or carotid stenting. 5. Okay to DC from Cardiology standpoint with clinic followup in 2 weeks. Cross cover for Dr. Hua Ryan. MD GRAY Bauman/VIKKI /[id number]
[2019-01-07] MEDS: ATORVASTATIN 40 MG TAB PO SCH (21:30)
[2019-01-08 00:42] VITALS: BP 142/61
[2019-01-08] MEDS: LEVOTHYROXINE SODIUM 50 MCG TAB PO SCH (05:52)
[2019-01-08 06:22] VITALS: BP 151/64
--- NOTE | 2019-01-08 07:05 | NUR ---
RECEIVED PATIENT AWAKE RESTING IN BED NO SIGNS OF DISTRESS. BED LOW, WHEELS LOCKED, SIDE RAILS X2. CALL LIGHT IN REACH WILL CONTINUE TO MONITOR PATIENT.
[2019-01-08 08:51] VITALS: BP 129/59
[2019-01-08] MEDS: FAMOTIDINE 20 MG TAB PO SCH (09:59)
[2019-01-08] MEDS: AMLODIPINE BESYLATE 5 MG TAB PO SCH (09:59)
[2019-01-08] MEDS: SENNOSIDES 8.6 MG TAB PO SCH (09:59)
[2019-01-08] MEDS: CLOPIDOGREL BISULFATE 75 MG TAB PO SCH (09:59)
[2019-01-08] MEDS: HEPARIN SOD (PORCINE) 5,000 UNIT/ML VIAL SC SCH (10:43)
[2019-01-08] MEDS ORDERED: PLAVIX75 MG PO (10:45)
[2019-01-08] MEDS ORDERED: LIPITOR20 MG PO (10:45)
[2019-01-08] MEDS ORDERED: SENNA S TABLET1 EACH PO (10:46)
--- NOTE | 2019-01-08 11:10 | NUR ---
REMOVED PATIENTS IV. CATHETER TIP INTACT AND PRESSURE DRESSING APPLIED.
--- NOTE | 2019-01-08 12:02 | NUR ---
PATIENT DISCHARGED FROM FACILITY. PATIENT GATHERED ALL PERSONAL BELONGINGS, DISCHARGE INSTRUCTIONS, AND FOLLOW UP INFORMATION. LEFT UNIT IN WHEELCHAIR AND WENT HOME VIA PRIVATE AUTO. NO SIGNS OF DISTRESS WHEN LEAVING FACILITY.
[2019-01-08 13:07] VITALS: BP 175/92
== END 2019-01-08 12:03 | disposition home health service (06) | DRG 62 ==
LOC: ER 17:19 → ERHOLD 19:32 → ICU 20:00 → MED/SURG2 01-06 18:35
PROVIDERS: ADMIT Internal Medicine; ATTEND Internal Medicine
DX: I63.511 Cerebral infarction due to unspecified occlusion or stenosis of right middle cerebral artery (principal); G81.94 Hemiplegia, unspecified affecting left nondominant side; I50.32 Chronic diastolic (congestive) heart failure; R29.810 Facial weakness; E78.00 Pure hypercholesterolemia, unspecified; E03.9 Hypothyroidism, unspecified; I25.10 Atherosclerotic heart disease of native coronary artery without angina pectoris; Z82.49 Family history of ischemic heart disease and other diseases of the circulatory system; I73.9 Peripheral vascular disease, unspecified; R00.1 Bradycardia, unspecified; I49.1 Atrial premature depolarization; I11.0 Hypertensive heart disease with heart failure; I65.23 Occlusion and stenosis of bilateral carotid arteries
CPT/HCPCS: 36415; 70450; 70498; 70544; 70551; 80048; 80053; 80061; 82550; 82553; 82565; 82948; 83036; 83735; 84443; 84484; 84520; 85025; 85610; 85730; 93005; 93306; 93880; 97139; 99284; J1644; J7030; Q9967

== ENCOUNTER 2019-02-18 09:29 | Inpatient (IN) | payer MEDICARE ==
[2019-02-12 14:53] LABS: BASOPHILS # (AUTO) 0.1 (0.0-0.1); BASOPHILS % 1.1 % (0.0-1.0); EOSINOPHILS # (AUTO) 0.4 (0.0-0.4); EOSINOPHILS % 7.4 % (0.0-6.0); HEMATOCRIT 39.3 % (38.2-49.6); HEMOGLOBIN 13.1 g/dL (14.0-18.0); LYMPHOCYTES # (AUTO) 1.5 (1.0-3.2); LYMPHOCYTES % 30.7 % (18.0-39.1); MEAN CORPUSCULAR HEMOGLOBIN 32.4 pg (28-32); MEAN CORPUSCULAR HGB CONC 33.3 g/dL (31-35); MEAN CORPUSCULAR VOLUME 97.3 fL (81-99); MONOCYTES # (AUTO) 0.6 (0.2-0.8); MONOCYTES % 12.2 % (4.4-11.3); NEUTROPHILS # (AUTO) 2.3 (2.1-6.9); NEUTROPHILS % 48.4 % (38.7-80.0); PLATELET COUNT 155 x10e3/uL (140-360); RED BLOOD COUNT 4.04 x10e6/uL (4.3-5.7); RED CELL DISTRIBUTION WIDTH 12.2 % (11.7-14.4)
[2019-02-12 15:03] LABS: INR 0.99; PROTHROMBIN TIME 13.6 seconds (11.9-14.5)
[2019-02-12 15:04] LABS: PARTIAL THROMBOPLASTIN TIME 30.8 seconds (23.8-35.5)
[2019-02-12 15:10] LABS: ANION GAP 12.3 mmol/L (8-16); BLOOD UREA NITROGEN 16 mg/dL (7-26); BUN/CREATININE RATIO 19 (6-25); CALCIUM 9.5 mg/dL (8.4-10.2); CARBON DIOXIDE 25 mmol/L (22-29); CHLORIDE 102 mmol/L (98-107); CREATININE, SERUM 0.83 mg/dL (0.72-1.25); EST GLOMERULAR FILTRATION RATE > 60 ML/MIN (60-); GLUCOSE 80 mg/dL (74-118); POTASSIUM 4.3 mmol/L (3.5-5.1); SODIUM 135 mmol/L (136-145)
--- NOTE | 2019-02-12 15:34 | Diagnostic Imaging Report ---
Chest, 2 views, 02/12/2019. History: Preop, carotid stenosis. Comparison: None available. Findings: The cardiomediastinal silhouette and pulmonary vasculature are within normal limits. Linear opacities are present at the right lung base. The lungs are otherwise clear without evidence of consolidation or pleural effusion. Degenerative changes are present throughout the thoracic spine. There are no acute osseous or soft tissue abnormalities. Impression: Right lower lobe atelectasis. Signed by: Giuseppe Rodrigues on 02/12/2019 3:31 PM
[~2019-02-18] VITALS: Ht 165.1 cm; Wt 78.5 kg
[~2019-02-18 09:29] MED LIST changes: +CETIRIZINE HCL10 M1 PO; +LIPITOR20 MG PO; +LOSARTAN POTAS100 MG PO; +METOPROLOL SUCC25 MG PO; +PLAVIX75 MG PO; +SENNA S TABLET1 EACH PO
[2019-02-18] MEDS ORDERED: LIDOCAINE HCL 1% 2 ML AMP ONE (11:35)
[2019-02-18] MEDS ORDERED: PROTAMINE SULFATE 10 MG/ML 5 ML VIAL ONE (11:35)
[2019-02-18] MEDS ORDERED: HEPARIN SOD (PORCINE) 1000 UNIT/ML 30ML ONE (11:35)
[2019-02-18] MEDS ORDERED: MUPIROCIN 2% OINT 22 GM TUBE ONE (11:36)
[2019-02-18] MEDS ORDERED: SODIUM CHLORIDE 0.9% 500ML 500 ML ONE (11:36)
[2019-02-18] MEDS ORDERED: HEPARIN SOD/SOD CHLORIDE 1,000 ML ONE (11:37)
[2019-02-18] MEDS ORDERED: THROMBIN FOR SOLN 5,000 UNIT VIAL ONE ×2 (11:49→11:50)
[2019-02-18] MEDS ORDERED: NICARDIPINE HCL SOLN 10 ML ONE (14:17)
[2019-02-18] MEDS ORDERED: NOREPINEPHRINE INJ 4MG/4ML 4 ML ONE (14:20)
[2019-02-18] MEDS ORDERED: SODIUM CHLORIDE 0.9% 50ML 100 ML ONE (14:21)
[2019-02-18] MEDS ORDERED: ONDANSETRON HCL INJ 2MG/ML 2ML 2 MG/ML VIAL ONE (17:46)
[2019-02-18] MEDS ORDERED: VASOPRESSIN INJ 20 UNIT/ML VIAL ONE (17:46)
[2019-02-18] MEDS ORDERED: ESMOLOL HCL 100MG/10ML 10 MG/ML VIAL ONE (17:46)
[2019-02-18] MEDS ORDERED: ACETAMINOPHEN 1000 MG/100 ML IV ONE (17:46)
[2019-02-18] MEDS ORDERED: ROCURONIUM BROMIDE 10 MG/ML 5ML VIAL ONE (17:46)
[2019-02-18] MEDS ORDERED: PROPOFOL IV EMULSION 10 MG/ML 20 ML VIAL ONE (17:46)
[2019-02-18] MEDS ORDERED: DEXAMETHASONE SOD PHOS INJ 4 MG/ML VIAL ONE (17:46)
[2019-02-18] MEDS ORDERED: NEOSTIGMINE 5 MG/5ML SYR ONE (17:46)
[2019-02-18] MEDS ORDERED: GLYCOPYRROLATE INJ 1MG/ 5 ML SYR ONE (17:46)
[2019-02-18] MEDS ORDERED: DESFLURANE 240 ML BTL INH ONE (17:46)
[2019-02-18] MEDS ORDERED: LIDOCAINE HCL (LTA) 4 ML SOLN ONE (18:10)
[2019-02-18] MEDS ORDERED: FENTANYL CITRATE/PF 100MCG/2 ML INJ ONE ×2 (18:30→22:27)
[2019-02-18] MEDS ORDERED: MIDAZOLAM HCL 2 MG/2 ML VIAL ONE (18:30)
[2019-02-18] MEDS ORDERED: HYDROMORPHONE 2MG/ML 2 MG/ML ML ONE ×2 (20:42→22:08)
[2019-02-18] MEDS ORDERED: ACETAMINOPHEN 1000 MG/100 ML 100 ML IV ONE (22:09)
[2019-02-18] MEDS ORDERED: HYDRALAZINE HCL 20 MG/ML VIAL ONE (22:27)
[2019-02-18 22:45] VITALS: BP_SYST 107; BP_SYST 150; BP_DIAS 45; BP_DIAS 69
--- NOTE | 2019-02-18 22:45 | NUR ---
Report received from [facility] [employer]. Pt arrived, AAO x4, no complaints at this time. Dr. Schuyler Brambila notified of pt's arrival and consult. aware of pt.
[2019-02-18] MEDS ORDERED: LABETALOL HCL 5 MG/ML 20ML VIAL IV PRN (23:00)
[2019-02-18] MEDS ORDERED: HYDROCODONE/APAP 5MG-325MG TAB PO PRN (23:15)
[2019-02-18] MEDS ORDERED: SODIUM CHLORIDE 0.9% 1000ML 1,000 ML IV SCH (23:15)
[2019-02-18] MEDS ORDERED: ONDANSETRON HCL INJ 2MG/ML 2ML 2 MG/ML VIAL IV PRN (23:15)
[2019-02-18 23:30] VITALS: BP 104/52
[2019-02-18 23:49] VITALS: BP 111/48
[2019-02-18] MEDS ORDERED: CEFAZOLIN SOD 1 GM/NS 50ML 50 ML IV ONE (23:57)
[2019-02-19] VITALS (22 sets, daily range): BP systolic 103–160; BP diastolic 46–116
[2019-02-19] MEDS ORDERED: CEFAZOLIN SOD 1 GM VIAL IV NR
[2019-02-19] MEDS ORDERED: ACETAMINOPHEN/CODEINE 300MG - 30MG TAB PO PRN (00:15)
[2019-02-19] MEDS: MORPHINE SULFATE INJ 4 MG/ML INJ 1ML IV PRN ×2 (02:16→05:20)
[2019-02-19 05:26] LABS: BASOPHILS % 0.2 % (0.0-1.0); HEMATOCRIT 33.4 % (38.2-49.6); HEMOGLOBIN 11.1 g/dL (14.0-18.0); LYMPHOCYTES # (AUTO) 0.7 (1.0-3.2); LYMPHOCYTES % 11.3 % (18.0-39.1); MEAN CORPUSCULAR HGB CONC 33.2 g/dL (31-35); MEAN CORPUSCULAR VOLUME 96.3 fL (81-99); MONOCYTES # (AUTO) 0.1 (0.2-0.8); MONOCYTES % 2.2 % (4.4-11.3); NEUTROPHILS # (AUTO) 5.6 (2.1-6.9); NEUTROPHILS % 86.1 % (38.7-80.0); PLATELET COUNT 135 x10e3/uL (140-360); RED BLOOD COUNT 3.47 x10e6/uL (4.3-5.7); RED CELL DISTRIBUTION WIDTH 12.3 % (11.7-14.4)
[2019-02-19 05:34] LABS: ANION GAP 16.8 mmol/L (8-16); BLOOD UREA NITROGEN 20 mg/dL (7-26); BUN/CREATININE RATIO 26 (6-25); CALCIUM 7.6 mg/dL (8.4-10.2); CARBON DIOXIDE 21 mmol/L (22-29); CHLORIDE 108 mmol/L (98-107); CREATININE, SERUM 0.76 mg/dL (0.72-1.25); EST GLOMERULAR FILTRATION RATE > 60 ML/MIN (60-); GLUCOSE 109 mg/dL (74-118); POTASSIUM 3.8 mmol/L (3.5-5.1); SODIUM 142 mmol/L (136-145)
--- NOTE | 2019-02-19 06:44 | NUR ---
Pt having trouble urinating, bladder scan showed [address] Schuyler Brambila notified. Ordered to insert dietrich.
[2019-02-19] MEDS ORDERED: SENNA-S TABLET PO PRN (07:45)
--- NOTE | 2019-02-19 08:44 | Pre Op History & Physical ---
HISTORY OF PRESENT ILLNESS: The patient is an 83-year-old man. He has a history of carotid artery disease and a prior cerebrovascular accident in the past. He had a prior left carotid endarterectomy and now requires treatment for a right sided carotid artery stenosis. He went to the operating room yesterday. He tolerated the procedure well. He had minimal blood loss. A Dacron patch was used. The patient was sent to the ICU postoperatively. He had some urinary retention and had to have a [place] placed. PAST SURGICAL HISTORY: 1. Status post left carotid endarterectomy. 2. Status post right carotid endarterectomy. PAST MEDICAL HISTORY: 1. Hypertension. 2. Coronary artery disease. 3. Hyperlipidemia. SOCIAL HISTORY: The patient is here with his . His son is a dentist in the community. He is not an active smoker. He is not a drinker. FAMILY HISTORY: Family history is noncontributory. ALLERGIES: THERE ARE NO KNOWN DRUG ALLERGIES. REVIEW OF SYSTEMS: The patient has no fever. He has no headache. He has some incisional pain on the right side. He has no neck pain. He is not having any chest pain. He has no difficulty breathing. He has no abdominal pain. He did have some urinary retention. He has no leg edema. PHYSICAL EXAMINATION: VITAL SIGNS: The patient is afebrile. The blood pressure is 115/80. HEENT: Shows no facial swelling or erythema. Mucous membranes are dry. He has a bandage over the carotid surgery. CARDIAC: Reveals regular rate and rhythm with normal S1, S2. LUNGS: Auscultation of lungs shows clear breath sounds bilaterally. There is no wheezing. ABDOMEN: Soft and nontender. There is no rebound or guarding. EXTREMITIES: Show no leg edema or calf tenderness. There is no cyanosis or clubbing. SKIN: Shows no rashes. NEUROLOGICAL: Shows no focal abnormalities. LABORATORY DATA: Bicarbonate 21, other electrolytes are within normal limits. Hemoglobin is 11.1 and platelet count is 135. RADIOGRAPHIC DATA: Chest x-ray shows some right lower lobe atelectasis. IMPRESSION: 1. Postoperative urinary retention. 2. Hypertension. 3. Recent carotid endarterectomy. 4. Hypercholesterolemia. PLAN: 1. Remove A-line and ambulate patient. 2. Urology consultation. 3. Continue postoperative care. MD DENVER King/DENNISL /[id number]
[2019-02-19] MEDS: LOSARTAN POTASSIUM 100 MG TAB PO SCH (08:52)
[2019-02-19] MEDS: MUPIROCIN 2% OINT 22 GM TUBE TOP SCH ×2 (08:52→16:13)
[2019-02-19] MEDS: LEVOTHYROXINE SODIUM 50 MCG TAB PO SCH (08:53)
[2019-02-19] MEDS ORDERED: CLOPIDOGREL BISULFATE 75 MG TAB PO SCH (09:00)
[2019-02-19] MEDS ORDERED: AMLODIPINE BESYLATE 5 MG TAB PO SCH (09:00)
[2019-02-19] MEDS ORDERED: ENOXAPARIN SOD INJ 40 MG/0.4 ML SYR SC SCH (09:00)
--- NOTE | 2019-02-19 19:57 | NUR ---
Report given to Magaly Arroyo RN at 1925. Patient transferred to [facility] in bed, accompanied by RN, with no signs of acute distress. Family at bedside with patient belongings.
--- NOTE | 2019-02-19 20:10 | NUR ---
Report received from JOSE JUAN Ramirez. Patient transferred by bed @1950. Denied pain and no SOB. Respiration even and unlabored. Patient had continued on oxygen 4liters via nasal canula, Spo2 maintained 99%. Family in the room. Patient and family instructed to call for help, verbalized and understand. Bed in lower position,locked. Call monsalve within reach. Will continue to monitor.
[2019-02-19] MEDS ORDERED: TAMSULOSIN HCL 0.4 MG CAP PO SCH (21:00)
[2019-02-19] MEDS ORDERED: ATORVASTATIN 40 MG TAB PO SCH (21:00)
[2019-02-20 04:16] VITALS: BP 143/89
[2019-02-20] MEDS: LEVOTHYROXINE SODIUM 50 MCG TAB PO SCH (05:26)
--- NOTE | 2019-02-20 05:29 | NUR ---
Patient assisted to give bed bath at this time. Patient tolerated well. Will continue to monitor. Addendum: 02/20/19 at 0530 by Magaly Arroyo RN wrong charting
--- NOTE | 2019-02-20 05:30 | NUR ---
Patient assisted to give bed bath at this time and assisted to changed linen/gown/pads. Patient tolerated well. Will continue to monitor.
[2019-02-20] MEDS ORDERED: ONDANSETRON HCL 4 MG ORAL DISINTEGRATING TAB PO PRN (06:00)
[2019-02-20 07:00] VITALS: BP 156/68
--- NOTE | 2019-02-20 07:00 | NUR ---
Report given to oncoming nurse Abigail.
--- NOTE | 2019-02-20 08:24 | Progress Note ---
DATE: SUBJECTIVE: The patient had urinary retention yesterday. He required a Almonte. He saw urologist. He was found to have an enlarged prostate. Otherwise, he is doing well. He has no neurological complaints. PHYSICAL EXAMINATION: VITAL SIGNS: The patient is afebrile. The blood pressure is 143/90 and saturation is 97% on 3 L. HEENT: Shows no facial swelling or erythema. LYMPHATIC: Shows no submandibular, cervical, or supraclavicular adenopathy. CARDIAC: Reveals regular rate and rhythm with a normal S1, S2. There are no murmurs or rubs. LUNGS: Auscultation of lungs reveals clear breath sounds bilaterally. There is no wheezing. ABDOMEN: Soft and nontender. There is no rebound or guarding. EXTREMITIES: Show no leg edema or calf tenderness. There is no cyanosis or clubbing. SKIN: Shows no rashes. IMPRESSION: 1. Acute urinary retention. 2. Benign prostatic hypertrophy. 3. Recent carotid endarterectomy. 4. Hypercholesterolemia. PLAN: 1. Hold Lovenox and Plavix today because of hematuria. 2. Trial of removing Almonte. 3. Continue Flomax. 4. Postoperative wound care for carotid endarterectomy. Conrado Brambila MD [facility]/VIKKI /[id number]
[2019-02-20 09:00] VITALS: BP 156/68
[2019-02-20] MEDS: LOSARTAN POTASSIUM 100 MG TAB PO SCH (09:00)
[2019-02-20 11:00] VITALS: BP 136/82
[2019-02-20] MEDS: MUPIROCIN 2% OINT 22 GM TUBE TOP SCH ×2 (12:45→15:33)
--- NOTE | 2019-02-20 14:56 | Operative Report ---
DATE OF PROCEDURE: 02/18/2019 SURGEON: Juan York MD RESIDENTIAL DESIGNER: Quirino Rolle. PREOPERATIVE DIAGNOSIS: Severe right carotid stenosis. POSTOPERATIVE DIAGNOSIS: Severe right carotid stenosis. TITLE OF OPERATION: Right carotid endarterectomy. DESCRIPTION OF OPERATION: After the satisfactory accomplishment of general anesthesia, the patient's right neck was prepped and draped in sterile fashion. A standard right carotid incision was made along the anterior border of the sternomastoid muscle. The incision was carried down through the subcutaneous tissues to expose the right common carotid artery. The vessel was dissected free from the surrounding tissues and looped with a vessel loop. The dissection was carried distally to expose the internal carotid artery and the external carotid artery, and its branches. Care was taken to identify and preserve all nerve structures in the region. Systemic heparin was given through a central vein cannula for the purposes of anticoagulation. The common, internal, and external carotid arteries were then briefly crossclamped. A long incision was made in the common carotid artery and carried distally through the bifurcation and well up into the internal carotid artery. An indwelling shunt was placed in the common carotid artery proximally and the internal carotid artery distally, thereby re-establishing blood flow to the right side of the brain for the remainder of the case. A severely obstructing, ulcerated plaque was identified. The plaque was carefully removed using standard endarterectomy techniques. Following this, the surface of the vessel was smoothed and all loose debris was carefully removed. Heparinized saline flushes were routinely employed. A previously constructed Dacron patch was brought into the operative field and used to close the arteriotomy site. Running 7-0 Prolene was used for this patch closure. Prior to completing the closure, the shunt was removed and the vessel was flushed free from all air and debris. Once the sutures were tied, excellent pulses were located within the patch area and beyond. Protamine was given to counteract the effects of the heparin. All bleeding points were cauterized, ligated, or oversewn. The wound was thoroughly irrigated with antibiotic solution. The wound was then closed in layers with interrupted 2-0 Vicryl for the deep tissues and Monocryl subcuticular stitches for the skin. The patient tolerated the procedure well, awakened normally in the operating room, and was returned to the Intensive Care Unit in good condition. MD NORY Sarah/VIKKI /[id number]
[2019-02-20 15:00] VITALS: BP 121/75
== END 2019-02-20 19:20 | disposition home or self-care (01) | DRG 39 ==
LOC: OR 09:29 → ICU 23:30 → IMCU 02-19 19:52
PROVIDERS: ADMIT Internal Medicine Critical Care Medicine; ATTEND Internal Medicine Critical Care Medicine
PROC: 03UH0JZ Supplement Right Common Carotid Artery with Synthetic Substitute, Open Approach (ICD-10-PCS; 2019-02-18)
PROC: 03UK0JZ Supplement Right Internal Carotid Artery with Synthetic Substitute, Open Approach (ICD-10-PCS; 2019-02-18)
PROC: 03CH0Z6 (ICD-10-PCS; principal; 2019-02-18 18:08)
DX: I65.23 Occlusion and stenosis of bilateral carotid arteries (principal); I10 Essential (primary) hypertension; E78.00 Pure hypercholesterolemia, unspecified; Z86.73 Personal history of transient ischemic attack (TIA), and cerebral infarction without residual deficits; I25.10 Atherosclerotic heart disease of native coronary artery without angina pectoris; R33.8 Other retention of urine; N40.1 Benign prostatic hyperplasia with lower urinary tract symptoms
CPT/HCPCS: 36415; 71046; 80048; 85025; 85610; 85730; 86850; 86900; 86920; 88304; 88311; 93005; C1768; J0360; J0690; J1100; J1644; J1650; J2001; J2250; J2270; J2405; J2720; J3010; J7040

== ENCOUNTER 2019-12-12 23:36 | Inpatient (IN) | payer MEDICARE, OTHER ==
[~2019-12-12] VITALS: Ht 165.1 cm; Wt 76.7 kg
[2019-12-13] VITALS (9 sets, daily range): BP systolic 102–134; BP diastolic 51–85
[2019-12-13] MEDS ORDERED: ACETAMINOPHEN 325 MG TAB PO STA (00:04)
[2019-12-13] MEDS ORDERED: PIPER-TAZ 3.375 GM 50 ML IV STA (00:04)
--- NOTE | 2019-12-13 00:05 | Emergency Department Note ---
History of Present Illnes History of Present Illness Chief Complaint: General Medicine Complaints History of Present Illness This is a 84 year old male fever and cough x 2 days. Sent by PCP for evaluation of weakness . Historian: Patient, Family Member Arrival Mode: Car History limited by: language barrier Apartment Locator Required: No Onset (how long ago): day(s) (2) Severity: mild Onset quality: gradual Duration (how long): day(s) (2) Progression: worsening Chronicity: new Relieving factors: none Exacerbating factors: none Associated symptoms: Reports cough, Reports fever/chills Treatments prior to arrival: none Past Medical/Family History Physician Review I have reviewed the patient's past medical and family history. Any updates have been documented here. Past Medical History Recent Fever: Yes Clinical Suspicion of Infectio: Yes New/Unexplained Change in Ment: No Past Medical History: Hypertension, TIA, CAD, GERD Past Surgical History: Appendectomy Other Surgery: Carodid Endartectomy 10 years ago TIA 15 years ago Appendectomy in his youth(does not remember age) CEA 02/18/19 Social History Smoking Cessation: Never Smoker Alcohol Use: None Any Illegal Drug Use: No Other Last Tetanus: UNKNOWN Review of Systems Review of Systems Constitutional: Reports fever, Reports weakness EENTM: Reports no symptoms Cardiovascular: Reports no symptoms; Denies chest pain Respiratory: Reports cough Gastrointestinal: Reports no symptoms Genitourinary: Reports no symptoms Musculoskeletal: Reports no symptoms Integumentary: Reports no symptoms Neurological: Reports no symptoms Psychological: Reports no symptoms Endocrine: Reports no symptoms Hematological/Lymphatic: Reports no symptoms Physical Exam Related Data Allergies: Coded Allergies: No Known Allergies (Unverified , 12/14/11) Triage Vital Signs Vital Signs Date Time Temp Pulse Resp B/P (MAP) Pulse Ox O2 Delivery O2 Flow Rate FiO2 12/13/19 00:20 101.4 74 20 127/63 97 12/13/19 04:50 Nasal Cannula 12/13/19 04:56 2.0 Vital signs reviewed: Yes Physical Exam CONSTITUTIONAL Constitutional: Present well-developed, Present cachectic HENT HENT: Present normocephalic, Present atraumatic, Present oropharynx clear/moist, Present nose normal HENT L/R: Present left ext ear normal, Present right ext ear normal EYES Eyes: Reports PERRL, Reports conjunctivae normal NECK Neck: Present ROM normal PULMONARY Pulmonary: Present effort normal, Present breath sounds normal CARDIOVASCULAR Cardiovascular: Present regular rhythm, Present heart sounds normal, Present capillary refill normal, Present normal rate GASTROINTESTINAL Abdominal: Present soft, Present nontender, Present bowel sounds normal GENITOURINARY Genitourinary: Present exam deferred SKIN Skin: Present warm, Present dry MUSCULOSKELETAL Musculoskeletal: Present ROM normal NEUROLOGICAL Neurological: Present alert, Present oriented x 3, Present no gross motor or sensory deficits PSYCHOLOGICAL Psychological: Present mood/affect normal, Present judgement normal Results Laboratory Lab results reviewed: Yes Laboratory comments HgB: 12.1 Cr: 1.92 COVID - 19 : Negative. Imaging Imaging results reviewed: Yes Impressions [place] [address] Patient Name: LOKI MATTHEWS MR #: [id number] : 1935 Age/Sex: 84/M Req #: [id number] Adm Physician: Ordered by: LANDON LUCIO DO Report #: [id number] Location: ER Room/Bed: Procedure: [id number] DX/CHEST SINGLE (PORTABLE) Exam Date: 12/13/19 Exam Time: 44 REPORT STATUS: Signed EXAMINATION: CHEST SINGLE (PORTABLE) INDICATION: Cough COMPARISON: None FINDINGS: TUBES and LINES: None. LUNGS: Normal lung volumes. No consolidations. Mild central pulmonary vascular congestion. Bilateral infrahilar haziness. PLEURA: No pleural effusion or pneumothorax. HEART AND MEDIASTINUM: The cardiomediastinal silhouette is borderline enlarged. Aortic calcifications. BONES AND SOFT TISSUES: No acute osseous lesion. Soft tissues are unremarkable. Surgical clips in the lower neck. Degenerative changes. UPPER ABDOMEN: No free air under the diaphragm. IMPRESSION: Mild cardiomegaly and pulmonary vascular congestion. Subtle bilateral infrahilar haziness, atelectasis or pneumonia are possibilities. Sensitivity of lung evaluation is limited due to AP portable radiograph technique and patient body habitus. Signed by: Phong Adams DO on 12/13/2019 1:49 AM Dictated By: PHONG ADAMS DO 8 Transcribed By: GAYLA on 12/13/19148 COPY TO: LANDON LUCIO DO~ Procedures 12 Lead ECG Interpretation ECG Interpretation : ECG: ECG 1 Apartment Locator: Interpreted by ED physician Date: Dec 13, 2019 Time: 00:21 Prior ECG tracings: reviewed Rhythm: sinus rhythm Rate: normal BPM: 72 ST segments normal: No ST segment flattening: V5, V6 T wave inversion: V1, V2, V3, V4 Other findings: LVH with strain Q waves: III Clinical Impression: abnormal ECG Assessment & Plan Medical Decision Making MDM 84 yom brought by family for fever and weakness. Diff Dx : COVID-19 infection, UTI, pneumonia, sepsis. No SIRS noted. UA (+) for bacteria. COVID-19 test Neg. Plan to admit for IV abx to Dr Dagmar Mascorro Assessment & Plan Final Impression: (1) Urinary tract infection (2) Upper respiratory infection (3) Abnormal renal finding Depart Disposition: ADMITTED Home Meds Reported Medications Furosemide (LASIX) 20 Mg Tablet, 20 MG PO BID, #30 TAB 12/13/19 Metoprolol Tartrate (METOPROLOL TARTRATE) 25 Mg Tablet, 12.5 MG PO BID, TAB 12/13/19 Ticagrelor (BRILINTA) 90 Mg Tablet, 90 MG PO BID 12/13/19 Aspirin (ASPIR 81) 81 Mg Tablet., 81 MG PO DAILY 12/13/19 Atorvastatin Calcium (LIPITOR) 20 Mg Tablet, 40 MG PO HS, #30 TAB 01/08/19 Levothyroxine Sodium (Levoxyl) 50 Mcg Tablet, 50 MCG PO DAILY 12/14/11 Discontinued Reported Medications Sennosides/Docusate Sodium (SENNA S TABLET) 1 Each Tablet, 1 TAB PO BID PRN for CONSTIPATION 01/08/19 Clopidogrel Bisulfate* (PLAVIX) 75 Mg Tablet, 75 MG PO DAILY, #30 TAB 01/08/19 Losartan Potassium (LOSARTAN POTASSIUM) 100 Mg Tablet, 100 MG PO DAILY, TAB 01/03/19 Cetirizine Hcl (CETIRIZINE HCL) 10 Mg Tab.chew, PO DAILY 01/03/19 Amlodipine Besylate (Amlodipine Besylate) 5 Mg Tablet, 5 MG PO DAILY 12/14/11 Medications in the ED Acetaminophen 1,000 mg ONCE STAT PO ; Start 12/13/19 at 00:04; Stop 12/13/19 at 00:31; Status DC Piperacillin Sod/ Tazobactam Sod 50 ml @ 50 mls/hr ONCE STAT IV Last administered on 12/13/19at 00:41; Admin Dose 50 MLS/HR; Start 12/13/19 at 00:04; Stop 12/13/19 at 01:03; Status DC Acetaminophen 975 mg ONCE ONCE PO Last administered on 12/13/19at 00:41; Admin Dose 975 MG; Start 12/13/19 at 00:30; Stop 12/13/19 at 00:41; Status DC Sodium Chloride 500 ml @ ud STK-MED ONCE .ROUTE ; Start 12/13/19 at 01:26; Stop 12/13/19 at 01:20; Status DC Sodium Chloride 500 ml @ 0 mls/hr Q0M ONCE IV Last administered on 12/13/19at 01:23; Admin Dose 999 MLS/HR; Start 12/13/19 at 01:30; Stop 12/13/19 at 01:31; Status DC Sodium Chloride 500 ml @ 0 mls/hr Q0M STAT IV Last administered on 12/13/19at 03:12; Admin Dose 999 MLS/HR; Start 12/13/19 at 03:05; Stop 12/13/19 at 03:06; Status DC Sodium Chloride 1,000 ml @ 125 mls/hr Q8H IV ; Start 12/13/19 at 03:30; Stop 12/13/19 at 03:43; Status DC Ondansetron HCl 4 mg Q4H PRN IV NAUSEA AND VOMITING; Start 12/13/19 at 04:00; Stop 01/12/20 at 03:59 Acetaminophen 650 mg Q4H PRN PO Mild Pain (1-3) or Fever>100.8; Start 12/13/19 at 04:00; Stop 01/12/20 at 03:59 LANDON LUCIO 20, 2020 00:05
[2019-12-13 00:23] LABS: BASOPHILS % 0.2 % (0.0-1.0); EOSINOPHILS # (AUTO) 0.1 (0.0-0.4); EOSINOPHILS % 0.6 % (0.0-6.0); HEMATOCRIT 37.6 % (38.2-49.6); HEMOGLOBIN 12.1 g/dL (14.0-18.0); LYMPHOCYTES # (AUTO) 0.6 (1.0-3.2); MEAN CORPUSCULAR HEMOGLOBIN 31.7 pg (28-32); MEAN CORPUSCULAR HGB CONC 32.2 g/dL (31-35); MEAN CORPUSCULAR VOLUME 98.4 fL (81-99); MONOCYTES # (AUTO) 0.9 (0.2-0.8); MONOCYTES % 8.6 % (4.4-11.3); NEUTROPHILS # (AUTO) 8.9 (2.1-6.9); NEUTROPHILS % 84.2 % (38.7-80.0); PLATELET COUNT 157 x10e3/uL (140-360); RED BLOOD COUNT 3.82 x10e6/uL (4.3-5.7); RED CELL DISTRIBUTION WIDTH 12.5 % (11.7-14.4)
[2019-12-13] MEDS ORDERED: ACETAMINOPHEN 325 MG TAB PO ONE (00:30)
[2019-12-13 01:15] LABS: CLARITY,URINE CLOUDY (CLEAR); COLOR,URINE YELLOW (YELLOW)
[2019-12-13 01:16] LABS: BACTERIA,URINE MANY /HPF; BILIRUBIN,URINE NEGATIVE (NEGATIVE); KETONES,URINE NEGATIVE (NEGATIVE); LEUKOCYTE ESTERASE ,URINE LARGE (NEGATIVE); NITRITE,URINE NEGATIVE (NEGATIVE); PROTEIN,URINE DIPSTICK 1+ (NEGATIVE); URINE UROBILINOGEN 0.2 mg/dL (0.2 - 1)
[2019-12-13 01:17] LABS: AMORPHOUS SEDIMENT,URINE MANY (FEW); EPITHELIAL CELLS,URINE FEW /LPF; TRIPLE PHOSPHATE CRYSTAL,UR MANY (FEW)
[2019-12-13] MEDS ORDERED: SODIUM CHLORIDE 0.9% 500ML 500 ML ONE (01:26)
[2019-12-13] MEDS ORDERED: SODIUM CHLORIDE 0.9% 500ML 500 ML IV ONE (01:30)
--- NOTE | 2019-12-13 01:52 | Diagnostic Imaging Report ---
EXAMINATION: CHEST SINGLE (PORTABLE) INDICATION: Cough COMPARISON: None FINDINGS: TUBES and LINES: None. LUNGS: Normal lung volumes. No consolidations. Mild central pulmonary vascular congestion. Bilateral infrahilar haziness. PLEURA: No pleural effusion or pneumothorax. HEART AND MEDIASTINUM: The cardiomediastinal silhouette is borderline enlarged. Aortic calcifications. BONES AND SOFT TISSUES: No acute osseous lesion. Soft tissues are unremarkable. Surgical clips in the lower neck. Degenerative changes. UPPER ABDOMEN: No free air under the diaphragm. IMPRESSION: Mild cardiomegaly and pulmonary vascular congestion. Subtle bilateral infrahilar haziness, atelectasis or pneumonia are possibilities. Sensitivity of lung evaluation is limited due to AP portable radiograph technique and patient body habitus. Signed by: Phong Adams DO on 12/13/2019 1:49 AM
[2019-12-13 02:03] LABS: ALBUMIN 3.4 g/dL (3.5-5.0); ANION GAP 13.9 mmol/L (8-16); CALCIUM 8.7 mg/dL (8.4-10.2); CREATININE, SERUM 1.93 mg/dL (0.72-1.25); POTASSIUM 3.9 mmol/L (3.5-5.1)
[2019-12-13] MEDS ORDERED: SODIUM CHLORIDE 0.9% 500ML 500 ML IV STA (03:05)
[2019-12-13] MEDS ORDERED: SODIUM CHLORIDE 0.9% 1000ML 1,000 ML IV SCH (03:30)
[2019-12-13] MEDS ORDERED: ONDANSETRON HCL INJ 2MG/ML 2ML 2 MG/ML VIAL IV PRN (04:00)
--- NOTE | 2019-12-13 04:22 | NUR ---
RECEIVED REPORT FROM [facility] ER NURSE. PATIENT ARRIVED VIA STRETCHER TO THE UNIT. PATIENT IN BED. CALL LIGHT WITHIN REACH.
[2019-12-13 06:57] LABS: CREATINE KINASE MB 0.8 ng/mL (0-5.0)
--- NOTE | 2019-12-13 07:11 | NUR ---
HOURLY ROUNDING PERFORMED. PATIENT IN BED. GAVE REPORT TO ONCOMING NURSE. CALL LIGHT WITHIN REACH.
[2019-12-13] MEDS: ACETAMINOPHEN 325 MG TAB PO PRN ×3 (08:21→22:28)
[2019-12-13] MEDS ORDERED: HYDRALAZINE HCL 20 MG/ML VIAL IV PRN (09:45)
--- NOTE | 2019-12-13 11:00 | NUR ---
call to Dr. Briceno for orders for troponin levels.
[2019-12-13] MEDS: SODIUM CHLORIDE 0.9% 1000ML 1,000 ML IV SCH (11:17)
--- NOTE | 2019-12-13 11:41 | NUR ---
recall for to A/S to Dr Briceno.
[2019-12-13 11:51] LABS: ANION GAP 11.1 mmol/L (8-16); CALCIUM 8.4 mg/dL (8.4-10.2); CREATININE, SERUM 1.85 mg/dL (0.72-1.25); POTASSIUM 4.1 mmol/L (3.5-5.1)
[2019-12-13 12:22] LABS: CREATINE KINASE MB 0.8 ng/mL (0-5.0)
--- NOTE | 2019-12-13 14:00 | NUR ---
call to Dr. Briceno for orders for troponin levels.
[2019-12-13] MEDS ORDERED: DIATRIZOATE MEGL/DIATRIZOA SOD 30 ML BTL PO ONE (16:10)
[2019-12-13] MEDS: ENOXAPARIN SOD INJ 40 MG/0.4 ML SYR SC SCH (16:46)
--- NOTE | 2019-12-13 17:01 | NUR ---
Britney Charles, returned call for pt troponin levels orders given.
--- NOTE | 2019-12-13 17:52 | Diagnostic Imaging Report ---
EXAM: CT Abdomen and Pelvis WITHOUT contrast INDICATION: Abdominal pain COMPARISON: None. TECHNIQUE: Abdomen and pelvis were scanned utilizing a multidetector helical scanner from the lung base to the pubic symphysis without administration of IV contrast. Absence of intravenous contrast decreases sensitivity for detection of focal lesions and vascular pathology. Coronal and sagittal reformations were obtained. Routine protocol was performed. IV CONTRAST: None ORAL CONTRAST: None COMPLICATIONS: None RADIATION DOSE: Total DLP: 619 mGy*cm Estimated effective dose: (DLP x 0.015 x size factor) mSv CTDIvol has been reviewed. It is below the limits set by the Radiation Protocol Committee (RPC). Dose modulation, iterative reconstruction, and/or weight based adjustment of the mA/kV was utilized to reduce the radiation dose to as low as reasonably achievable. FINDINGS: LINES and TUBES: None. LOWER THORAX: Trace bilateral pleural effusions. Bibasilar airspace disease, likely atelectasis. Mild cardiomegaly. HEPATOBILIARY: No gross hepatic lesion is identified when allowing for lack of intravenous contrast. GALLBLADDER: Completely contracted versus surgically absent. SPLEEN: No splenomegaly. PANCREAS: No focal masses or ductal dilatation. ADRENALS: No adrenal nodules KIDNEYS/URETERS: No hydronephrosis or stone. Multiple bilateral renal cysts, some of which are slightly dense. Notably, a 4.3 cm left renal upper pole cyst is 26 units in Hounsfield attenuation. GI TRACT: No abnormal distention, wall thickening, or evidence of bowel obstruction. Diffuse colonic diverticulosis. PELVIC ORGANS/BLADDER: Decompressed by catheter and contains a small amount of introduced air. LYMPH NODES: No gross adenopathy. VESSELS: Advanced calcified atherosclerosis. Aortoiliac tortuosity. PERITONEUM / RETROPERITONEUM: Nonspecific pericolic gutter mesenteric fat stranding. BONES: No acute osseous abnormality. Advanced lumbar degenerative change. SOFT TISSUES: Grossly unremarkable. IMPRESSION: Limited study due to lack of intravenous contrast. No gross acute abdominal or pelvic abnormality is identified. Colonic diverticulosis. No diverticulitis. Multiple bilateral renal cysts, some of which may be hemorrhagic/proteinaceous in content. Advanced calcified atherosclerosis. Signed by: Quirino Botello MD on 12/13/2019 5:49 PM
--- NOTE | 2019-12-13 18:56 | NUR ---
WALKING ROUNDS PERFORMED, RECEIVED PT LAYING SEMI FOWLERS IN BED, AAOX3, RR EVEN AND NON-LABORED. NO S/SX OF DISTRESS NOTED. AT BEDSIDE. LEFT PT LAYING SEMI FOWLERS IN BED, BED IN LOW LOCKED POSITION, SIDE RAILS UPX2, CALL LIGHT AND PHONE WITHIN REACH.
[2019-12-13] MEDS: PIPER-TAZ 3.375 GM 50 ML IV SCH (20:32)
[2019-12-13 21:05] LABS: CREATINE KINASE MB 2.2 ng/mL (0-5.0)
--- NOTE | 2019-12-13 21:11 | NUR ---
NOTIFIED MD JULIA MORIN MARLON CONCERNING ELEVATED CE. NEW ORDERS TO INPUT BY DIRECTOR OF SAFETY AND SECURITY.
[2019-12-13] MEDS ORDERED: METOPROLOL TART25 MG PO (22:00)
[2019-12-13] MEDS ORDERED: BRILINTA90 MG PO (22:00)
[2019-12-13] MEDS ORDERED: ASPIR 8181 MG PO (22:00)
[2019-12-13] MEDS ORDERED: LASIX20 MG PO (22:00)
--- NOTE | 2019-12-13 22:06 | NUR ---
Patient seen and evaluated on 12/13/19 Chief complaint: Fever History of present illness: 84-year-old gentleman who presented to the emergency department complaining of fever and cough for the course the last 2 days. He was advised by his primary care physician to have evaluation for weakness. The patient denies having chest pain, no shortness of breath. No abdominal pain, no nausea no vomiting no diarrhea. He was noted to have elevated cardiac enzymes. Troponin values were elevated. Admitted for further evaluation and treatment. Past medical history: The patient is known to have a history of hypertension, TIA, coronary disease and GERD and in the past has had endarterectomy approximately 10 years ago. The patient is known to have a history of coronary artary disease and triple-vessel disease. Has been seen in the past by patient's vinyl cutter Dr. Briceno. He has been treated medically. Details of cardiac catheterization done in the past as addressed by Dr. Briceno which are that of occluded left anterior descending artery. Left main circumfle x arteries have mild to moderate disease. Specific details as addressed by Dr. Charles vinyl cutter who is covering for Dr. Briceno as it is mentioned below: Dr. Hua Briceno, in August 2018, that showed an occluded left anterior descending artery with only the apical segment filling via collateral from the left circumflex and from the right coronary artery. The left main and left circumflex arteries had [id number] disease. The right coronary artery distal and at crux level had severe calcific stenosis. Past surgical history: Previous carotid endarterectomy. Left endarterectomy done 10 years ago and right endarterectomy in 2019. Previous appendectomy Social history: Denies tobacco alcohol abuse. Allergies: Per chart. Home medications: Aspirin 81 million p.o. daily, Brilinta 90 mg twice daily, metoprolol tartrate 25 mg p.o. 2 times a day, atorvastatin 40 million p.o. daily, levothyroxine 50 mcg once daily, Lasix 40 mg p.o. twice daily Review of system: Constitutional: Complains of fever chills. HEENT: No headaches. Cardiovascular: Denies chest pain, palpitations, PND, swelling of the legs. Respiratory: No Cough, hemoptysis or SOB GI: Denies Nausea/V/D, hematemesis, melena. : Denies Hematuria, Dysuria, Frequency Musculoskeletal: Denies joint pain Neuro: No focal weakness Psych: No anxiety or depression. Skin: No rashes, Itching, Hives Physical examination: Did reveal a patient alert oriented person time place the patient did not appear to be in distress. Vital signs: Blood pressure 137/63, respiration 20, pulse 84, temperature 101.4 HEENT: No gross abnormalities Neck: Supple no JVD Lungs: Clear to auscultation Heart: Regular rate and rhythm, no murmurs no gallops Abdomen: Soft non tender, no guarding. Extremities: No edema Neurologic: Alert oriented 3, no focal weakness. Psychiatrist: Normal mood, normal judgment. Skin: No rashes ECG Interpretation : ECG: ECG 1 Visual Developer: Interpreted by ED physician Date: Dec 13, 2019 Time: 00:21 Prior ECG tracings: reviewed Rhythm: sinus rhythm Rate: normal BPM: 72 ST segments normal: No ST segment flattening: V5, V6 T wave inversion: V1, V2, V3, V4 Other findings: LVH with strain Q waves: III Clinical Impression: abnormal ECG Lab data: Hemoglobin 12.1, WBC 10.54, platelet count 157,000, Sodium 138, potassium 3.9, chloride 103, CO2 28, BUN 37, creatinine 1.76, glucose 98, troponin I 2.7 x 0 Chest x-rays: Impression Mild cardiomegaly and pulmonary vascular congestion. Subtle bilateral infrahilar haziness, atelectasis or pneumonia are possibilities. Sensitivity of lung evaluation is limited due to AP portable radiograph technique and patient body habitus. CT scan of the abdomen: No acute findings noted. Assessment: 1. Fever etiology undetermined. COVID-19 has been ruled out. Empirically placed on antibiotics. 2. Non-ST some elevation myocardial infarction, acute based on cardiac enzymes. Patient experiencing anginal type symptoms. 3. History of coronary artery disease 4. Chronic renal failure with possible superimposed acute 5. Status post bilateral endarterectomy 6. Hypertension 7. History of TIA Plan of care: 1. Patient placed on blood blockers, statins and Lovenox. Resume Brilinta.. 2. Cardiology consultation requested. Evaluation noted. 3. ID consultation in view of history of fever. 4. Reconcile home medications. 5. Follow-up labs. 6. Echocardiogram.
[2019-12-13] MEDS: TICAGRELOR 90 MG TABLET PO SCH (22:28)
--- NOTE | 2019-12-13 22:58 | NUR ---
ALTERNATING PRESSURE PUMP APPLIED TO MATTRESS FOR PUP. BILATERAL HEEL PROTECTORS APPLIED D/T PT REPORTS BILATERAL FOOT PAIN.
--- NOTE | 2019-12-13 23:47 | NUR ---
[facility] CATHETER CARE PROVIDED WITH CASTILE SOAP WIPES X3.
[2019-12-14] VITALS (8 sets, daily range): BP systolic 113–153; BP diastolic 51–77
--- NOTE | 2019-12-14 01:30 | Consultation ---
DATE OF CONSULTATION: 12/13/2019 Cardiology Consultation History from available records, Dr. Briceno, patient's and son (Tesfaye) and patient. CHIEF COMPLAINT: Fever and weakness for the last two days. HISTORY OF PRESENT ILLNESS: The patient is an 84-year-old man, who developed fever and weakness in the last two days. The patient's primary care doctor asked the patient's and son to bring him to hospital for evaluation. In the emergency room, the patient was febrile. Laboratory results showed elevated troponin levels. Cardiology consultation was requested. Cardiovascular history is as a follows: The patient has long history of severe, diffuse atherosclerotic disease. He has had endarterectomies of the left and right carotids. He has had at least 2 myocardial infarctions. Coronary angiography by Dr. Hua Briceno, August 2018, showed an occluded left anterior descending artery with only the apical segment filling via collaterals from the left circumflex and from the right coronary artery. The left main and left circumflex arteries had weee-uc-uiqqftob disease. The right coronary artery distal and at the crux level had severe calcific stenosis. There were heavy calcifications throughout. At that time, the decision was made to treat the patient medically. The patient is now admitted for fever and weakness. MEDICAL HISTORY: History of hypertension, TIA X2, severe 3-vessel coronary artery disease, dyslipidemia, urinary retention due to BPH requiring indwelling urethral catheter. Catheter occluded two times in the last 1-2 weeks. Catheter was changed twice. SURGICAL HISTORY: s/p left and right carotid endarterectomies: the left endarterectomy done about 10 years ago and the right endarterectomy in 2019. SOCIAL HISTORY: There is no smoking history. REVIEW OF SYSTEMS: Positive for fever, weakness, weak cough, airway secretions. Pertinent negatives: no chest pain, shortness of breath, dizziness, palpitations, syncope, focal weakness, or slurred speech. Patient has not been able to walk for the last few days. PHYSICAL EXAMINATION: VITAL SIGNS: The patient's blood pressure 108/60, heart rate 88 bpm. Tmax: ~101 F. Oxygen saturation: 97%. HEAD AND NECK: Normocephalic, atraumatic head; anicteric conjunctiva. LUNGS: Diffuse ronchi; no wheezing, no crackles. CARDIOVASCULAR: Regular rate, distant S1, S2; no murmurs heard. ABDOMEN: Soft, nontender, bowel sounds present. EXTREMITIES: No edema or cyanosis. MEDICATIONS: Cardiovascular home medications are as follows: 1. Aspirin 81 mg one a day. 2. Brilinta 90 mg two times a day. 3. Metoprolol tartrate 25 mg tablet, half tablet (12.5 mg), two times a day. 4. Atorvastatin 40 mg, one in the evening. 5. Levothyroxine 50 mcg, one a day. 6. Furosemide 40 mg two times a day. LABORATORY DATA: Shows a creatinine of 1.85; initial troponin level was elevated and subsequently, there has been further increase in troponin and CK-MB levels. Chest x-ray showed findings consistent with vascular congestion. Electrocardiogram shows evidence of inferior and septal MS. There is no ST-elevation noted in his electrocardiograms. Echocardiogram 12/13/19: Study is technically very difficult, poor and off-axis views. Left ventricle is normal in size. The left ventricular systolic function is moderately reduced. LV EF of 40% plus/minus 5%. There are regional wall motion abnormalities as follows: Septum is severely hypokinetic to akinetic; inferolateral wall appears hypokinetic; inferior wall is probably akinetic, lateral wall appears to move normally; anterior and apical dickinson are not well visualized. The right ventricle is normal in size in systolic function. Aortic valve is mildly calcified with mildly reduced excursion. There is no significant aortic valve stenosis by Doppler study. There is mild aortic regurgitation, mild mitral regurgitation, and moderate pulmonic regurgitation. Pulmonary systolic pressure cannot be estimated due to lack to TR jet. There is no pericardial effusion. ASSESSMENT AND PLAN: 1. Itz-QQ-lukwvziar myocardial infarction, known, severe three- vessel coronary artery disease: a. Monitor cardiac markers. b. Telemetry. c. Resume cardiovascular medications. paulette. I spoke with patient's and son, Tesfaye, and both are in agreement that the patient should be treated conservatively. 2. Hypertension: a.Blood pressure has been relatively low. b.Continue to monitor. 3. Hyperlipidemia: Continue statin. 4. Hypothyroidism: Continue levothyroxine. 5. Fever and weakness as per primary team. Teagan Charles MD EC/MODL /[id number] MTDD
[2019-12-14] MEDS: SODIUM CHLORIDE 0.9% 1000ML 1,000 ML IV SCH ×2 (01:55→12:57)
[2019-12-14 02:38] LABS: BASOPHILS % 0.7 % (0.0-1.0); HEMATOCRIT 32.5 % (38.2-49.6); HEMOGLOBIN 10.4 g/dL (14.0-18.0); LYMPHOCYTES # (AUTO) 0.6 (1.0-3.2); LYMPHOCYTES % 12.8 % (18.0-39.1); MEAN CORPUSCULAR HEMOGLOBIN 31.9 pg (28-32); MEAN CORPUSCULAR VOLUME 99.7 fL (81-99); MONOCYTES # (AUTO) 0.3 (0.2-0.8); MONOCYTES % 6.3 % (4.4-11.3); NEUTROPHILS # (AUTO) 3.7 (2.1-6.9); PLATELET COUNT 117 x10e3/uL (140-360); RED BLOOD COUNT 3.26 x10e6/uL (4.3-5.7); RED CELL DISTRIBUTION WIDTH 12.6 % (11.7-14.4)
[2019-12-14 02:40] LABS: ALBUMIN 2.7 g/dL (3.5-5.0); ALBUMIN/GLOBULIN RATIO 0.9 (0.8-2.0); ANION GAP 10.9 mmol/L (8-16); CALCIUM 7.8 mg/dL (8.4-10.2); CREATININE, SERUM 1.76 mg/dL (0.72-1.25); POTASSIUM 3.9 mmol/L (3.5-5.1)
[2019-12-14 02:55] LABS: CREATINE KINASE MB 4.6 ng/mL (0-5.0)
[2019-12-14] MEDS: LEVOTHYROXINE SODIUM 50 MCG TAB PO SCH (05:44)
[2019-12-14 08:18] LABS: CREATINE KINASE MB 3.6 ng/mL (0-5.0)
[2019-12-14] MEDS ORDERED: TICAGRELOR 90 MG TABLET PO SCH (09:00)
[2019-12-14] MEDS: TICAGRELOR 90 MG TABLET PO SCH ×2 (09:12→17:29)
[2019-12-14] MEDS: ASPIRIN 81 MG ENTERIC COATED PO SCH (09:12)
[2019-12-14] MEDS: PIPER-TAZ 3.375 GM 50 ML IV SCH ×2 (09:20→20:21)
--- NOTE | 2019-12-14 14:19 | NUR ---
The patient is an 84-year-old man, who developed fever and weakness in the last two days. The patient's primary care doctor asked the patient and his family to bring him to hospital for evaluation. In the emergency room, the patient's laboratory results showed elevated troponin levels and a Cardiology consultation was requested. Cardiovascular history is as a follows: The patient has a long history of severe atherosclerotic disease. He has had carotid endarterectomies in the both the right and left carotids. He has had at least 2 myocardial infarctions. He had a coronary angiography by Dr. Hua Briceno, in August 2018, that showed an occluded left anterior descending artery with only the apical segment filling via collateral from the left circumflex and from the right coronary artery. The left main and left circumflex arteries had ljwo-ra-mtmhfwjq disease. The right coronary artery distal and at crux level had severe calcific stenosis. There were heavy calcifications throughout. At that time, the decision was made to treat the patient medically. The patient is now admitted for fever and weakness. Electrocardiogram shows evidence of inferior and septal [place]. There is no ST-elevation noted in his electrocardiograms. PAST MEDICAL HISTORY: History of hypertension, TIA, and severe 3-vessel coronary artery disease. PAST SURGICAL HISTORY: Carotid endarterectomy. The left endarterectomy done about 10 years ago and the right endarterectomy in 2019. SOCIAL HISTORY: He is a never smoker. [id number]
--- NOTE | 2019-12-14 16:07 | Progress Note ---
DATE: SUBJECTIVE: Mr. Peña is feeling better. There is no new complaint. He remains on Zosyn. Blood cultures showing gram-negative rods. Urine cultures gram-negative rods. PHYSICAL EXAMINATION: GENERAL: He is currently alert and oriented. Does not seem to be in acute distress. VITAL SIGNS: Stable, currently afebrile. HEENT: He is not icteric. NECK: Supple. CHEST: Clear. HEART: S1 and S2. No S3, S4, or murmur. ABDOMEN: Soft. IMPRESSION: 1. Sepsis secondary to pyelonephritis with bacteremia. Continue with Zosyn. 2. Chronic kidney disease. 3. Atherosclerotic disease, peripheral vascular disease, coronary artery disease per Cardiology. We will follow. MD EVA Cali/VIKKI /[id number]
[2019-12-14] MEDS: ENOXAPARIN SOD INJ 40 MG/0.4 ML SYR SC SCH (17:29)
--- NOTE | 2019-12-14 18:51 | NUR ---
WALKING ROUNDS PERFORMED, RECEIVED PT LAYING SEMI FOWLERS IN BED, AAOX3, RR EVEN AND NON-LABORED, ON ROOM AIR. NO S/SX OF DISTRESS NOTED. AT BEDSIDE. LEFT PT LAYING SEMI FOWLERS IN BED, BED IN LOW LOCKED POSITION, SIDE RAILS UPX2, CALL LIGHT AND PHONE WITHIN REACH.
--- NOTE | 2019-12-14 18:59 | NUR ---
WALKING ROUNDS COMPLETE, PT STABLE AT SHIFT CHANGE
[2019-12-14] MEDS: ATORVASTATIN 20 MG TAB PO SCH (20:25)
[2019-12-14] MEDS: ACETAMINOPHEN 325 MG TAB PO PRN (20:25)
--- NOTE | 2019-12-14 20:29 | NUR ---
NOTIFIED ALONDRA MASON NP FOR DUMONT TROPONIN LEVEL. NO NEW ORDERS AT THIS TIME.
--- NOTE | 2019-12-14 20:34 | NUR ---
NOTIFIED ALONDRA MASON TEACHING MANAGER FOR JULIA CONCERNING CHANGE IN LUNG SOUNDS AND ELEVATED BNP WITH IVF AT 75. NEW ORDERS RECEIVED TO DC IVF AT THIS TIME.
--- NOTE | 2019-12-14 22:18 | Progress Note ---
DATE: 12/14/2019 Cardiology Progress Note SUBJECTIVE: The patient is much improved. He is awake, alert, oriented, answering questions appropriately. He denies any shortness of breath, chest pain, palpitations, or dizziness. According to him, he thinks he should be going home soon. PHYSICAL EXAMINATION: VITAL SIGNS: His systolic blood pressure has ranged from 113 to 127 mmHg and diastolic blood pressure has been less than 80. He had one time blood pressure that was recorded as 153/77 mmHg. He is afebrile today and his oxygen saturation is 96%. HEAD AND NECK: Shows anicteric conjunctivae. Neck is supple. No elevated jugular venous pressure. LUNGS: Clear to auscultation posteriorly. HEART: Regular rate. S1 and S2 are present. No murmur is heard. ABDOMEN: Soft and nontender. Bowel sounds are present. EXTREMITIES: The legs show no edema. LABORATORY DATA: Today shows a white count of 4.6 that decreased from 10.5 on December 13, 2019. His hemoglobin is 10.4. His hematocrit is 32.5. Platelet count is 117,000 from 157,000 on December 13, 2019. His chemistry show sodium of 138, potassium of 3.9, chloride of 103, bicarb of 28, BUN is 37, creatinine is 1.76 from 1.85 on admission. His liver tests show very mild elevation of the AST. His CK-MBs have decreased from 4.6 to 3.6. His troponin levels are also decreasing from 3.46 to 2.49. His BNP was 1188. ASSESSMENT AND PLAN: 1. Pgc-UQ-dgrjbxbdw myocardial infarction in the setting of known severe three-vessel coronary artery disease. Recommend: a. Continuing current cardiovascular medications. b. Continue to monitor the cardiac markers. c. Maintain and keep the patient on telemetry. d. Optimize the cardiac medications as blood pressure allows. 2. History of hypertension. Blood pressure has been well controlled except for one time when it was measured as 153/77. We will continue to monitor and adjust medications as needed. 3. Hyperlipidemia. Continue statin. 4. Hypothyroidism. Continue levothyroxine. 5. Urinary tract infection. Urine culture shows gram-negative bacilli, organism not identified yet. The patient is on antibiotics and he has been afebrile today. We will continue to follow with you. Teagan MD PATSY Charles/VIKKI /[id number]
--- NOTE | 2019-12-14 23:12 | NUR ---
The patient was seen and evaluated on 12/14/2019 Subjective: Date of Service 12/14/19 The patient denies having chest pain, no shortness of breath, no abdominal pain, no nausea no vomiting. The patient has been feeling weak. Patient condit ion discussed with who was at the bedside. The patient blood culture turn to be to be gram-negative rods. Urine culture revealed gram-negative rods as well. Objective: Patient alert oriented person time place patient no distress HEENT: No gross abnormalities Neck: Supple no JVD Lungs: Clear to auscultation Heart: Regular rate and rhythm, no murmurs no gallops Abdomen: Soft non tender, no guarding. Extremities: No edema Neurologic: Alert oriented 3, no focal weakness. Psychiatrist: Normal mood, normal judgment. Skin: No rashes Lab data: Hemoglobin 10.4, WBC 4.60, platelet count 117,000 Sodium 138, potassium 3.9, chloride 103, CO2 28, BUN 37, creatinine 1.76 Assessment: 1. Sepsis secondary to pulpitis with bacteremia 2. Chronic kidney disease. 3. Coronary artery disease. 4. Peripheral vascular disease 5. Anemia. 6. Hypertension. 7. Hyperlipidemia. 8. Hypothyroidism 9. History of CVA Plan of care: 1. Continue antibiotics per ID. Continue monitor labs and kidney function
[2019-12-15] VITALS (8 sets, daily range): BP systolic 125–135; BP diastolic 55–72
[2019-12-15] MEDS: ACETAMINOPHEN 325 MG TAB PO PRN ×2 (00:15→22:44)
[2019-12-15 01:00] LABS: CREATINE KINASE MB 3.5 ng/mL (0-5.0)
[2019-12-15] MEDS: LEVOTHYROXINE SODIUM 50 MCG TAB PO SCH (05:19)
--- NOTE | 2019-12-15 06:57 | NUR ---
Received patient lying in bed with eyes open. Spouse at bedside. Urinary catheter in placed secured to leg bag. Respiration even and unlabored without SOB. Call light in reach.
[2019-12-15] MEDS: PIPER-TAZ 3.375 GM 50 ML IV SCH ×2 (08:27→21:38)
[2019-12-15] MEDS: METOPROLOL TARTRATE 25 MG TAB PO SCH ×2 (08:27→17:11)
[2019-12-15] MEDS: ASPIRIN 81 MG ENTERIC COATED PO SCH (08:27)
[2019-12-15] MEDS: TICAGRELOR 90 MG TABLET PO SCH ×2 (08:36→17:11)
--- NOTE | 2019-12-15 10:50 | NUR ---
Report given to receiving RN. Awake, alert respiration even and unlabored without SOB. Urinary catheter in placed secured to leg bag. Call light in reach.
--- NOTE | 2019-12-15 11:09 | NUR ---
INSPECTOR BALANCE WHEEL MOTION IN TO SEE PATIENT, NO NEW ORDER RECEIVED.
--- NOTE | 2019-12-15 11:20 | Progress Note ---
DATE: SUBJECTIVE: The patient is seen and evaluated. Available labs and notes reviewed. Discussed with Dr. Hyman and discussed with the nurse. Please refer to chart for more formation. REVIEW OF SYSTEMS: Complained of fever and right lower extremity pain mostly the tib-fib area and the distal end of his right thigh, knee, and foot. LABORATORY STUDIES: White count of 4.6, hemoglobin 10.4, and platelets 117. Creatinine 1.76, sodium 138, and potassium 3.9. Serology: Coronavirus PCR not detected on 12/13/2019. MICROBIOLOGY: Urine culture, Proteus mirabilis, pansensitive except for nitrofurantoin. Blood culture, Gram variable rods on one set. The other set is clean. The one with a Gram variable rods. The culture is pending. PHYSICAL EXAMINATION: VITAL SIGNS: Temperature 100.6 max last night at midnight. Current temperature is 97.5, respirations 19, pulse 87, and blood pressure 129/69. GENERAL: Alert and oriented, no acute distress. CV: S1-S2. CHEST: Equal expansion, decreased breath sounds. No acute distress. ABDOMEN: Obese, nontender. Positive bowel sounds. HEENT: Moist. No pallor. No JVD. EXTREMITIES: No obvious acute finding on the right lower extremity. No significant edema. ASSESSMENT AND PLAN: 1. Sepsis secondary to pyelonephritis with bacteremia. 2. Chronic kidney disease. 3. Atherosclerotic disease. 4. Peripheral vascular disease. 5. Coronary artery disease. 6. Fever. 7. Hypothyroidism. 8. Hyperlipidemia. Continue with Zosyn. Monitor vital signs. Urine seems to be clear, light yellow in color. No obvious bleeding noted. Continue to monitor the patient clinically, follow with the labs. Dictated by Ash Tai PA-C (Al) Kim Hyman MD /MODL /[id number]
--- NOTE | 2019-12-15 12:42 | Consultation ---
DATE OF CONSULTATION: HISTORY OF PRESENT ILLNESS: Casey is coming with a 3-day history of fever, not feeling well. The patient came to the emergency room. The patient who has fever and cough for 2 days, not feeling well. He also has a history of [place] catheter. PAST MEDICAL HISTORY: Otherwise hypertension, TIA, coronary artery disease, GERD. PAST SURGICAL HISTORY: Appendectomy. He also has past surgical history of carotid endarterectomy. ALLERGIES: NKA. SOCIAL HISTORY: There is no smoking, drug abuse or alcohol abuse. FAMILY HISTORY: Hypertension. REVIEW OF SYSTEMS: At this time, the patient is just weak, not feeling well with fever and chills. LABORATORY DATA: Blood culture is pending, urine culture is pending. White count 10, hemoglobin 12, hematocrit 37. Sodium 138, potassium 4.2, creatinine 1.85. Liver exam pending. COVID-19 is negative. He had a chest x-ray, which showed mild cardiomegaly. PHYSICAL EXAMINATION: GENERAL: He is currently alert, oriented, does not seem to be in acute distress. VITAL SIGNS: Stable. Afebrile. HEENT: Not icteric. NECK: Supple. CHEST: Clear bilateral. HEART: S1 and S2. No murmur. ABDOMEN: Soft. MEDICATIONS: The patient was started on Zosyn and Tylenol. IMPRESSION: 1. Fever, sepsis on admission, source is unclear. 2. Chronic kidney disease. 3. History of [place]. Agree with blood cultures and urine cultures. We will get CT abdomen and pelvis. Tylenol p.r.n. Supportive care. We will reassess in the morning. MD EVA Cali/MODL /[id number]
--- NOTE | 2019-12-15 15:45 | NUR ---
PATIENT REPOSITIONED IN BED BY 2 STAFFS. IN BED RESTING WITH HEAD OF BED ELEVATED, CALL LIGHT AT REACH. AT BED SIDE.
[2019-12-15] MEDS: ENOXAPARIN SOD INJ 40 MG/0.4 ML SYR SC SCH (17:11)
--- NOTE | 2019-12-15 19:20 | NUR ---
BEDSIDE SHIFT REPORT GIVEN TO ON COMING NURSE.
--- NOTE | 2019-12-15 20:49 | Progress Note ---
DATE: 12/15/2019 Cardiology Progress Note SUBJECTIVE: Jersey denies any chest pain or shortness of breath today. OBJECTIVE: VITAL SIGNS: Temperature 97.5, heart rate 87, blood pressure 129/69, respiratory rate 19, and O2 saturation 95%. GENERAL: In no acute distress, alert. NECK: No JVD. CHEST: Clear to auscultation. CARDIOVASCULAR: Regular rate and rhythm. Normal S1, S2. Systolic ejection murmur. No S3. No S4. ABDOMEN: Soft. Bowel sounds positive. EXTREMITIES: No edema. Warm extremities. CARDIOVASCULAR MEDICATIONS: Reviewed: 1. Aspirin 81 mg daily. 2. Lovenox 40 mg subcu daily. 3. Brilinta 90 mg b.i.d. 4. Metoprolol tartrate 12.5 mg b.i.d. LABORATORY DATA: Studies reviewed, creatinine 1.7, glucose 98. White blood cells 4.6, hemoglobin 10.4, and platelets 117. AST 35, ALT 18, and alkaline phosphatase 60. ASSESSMENT AND PLAN: An 84-year-old man presents with: 1. Coronary artery disease, type 2 UT in the setting of urinary tract infection. 2. Hypertension. 3. Dyslipidemia. 4. Hypothyroidism. 5. Renal failure, chronic. 6. Anemia and thrombocytopenia. RECOMMENDATIONS: Jersey remains deconditioned with continued vital functional decline. He follows up as outpatient. Continue current cardiovascular medications. His coronary artery disease is severe with occluded LAD, severe heavy calcifications, and severely diseased RCA. Recommend to continue medical management for now. The patient denies any anginal complaints. His troponin elevation is likely related to demand supply mismatch and the patient has underlying CKD. Agrees and prefers on medical noninvasive management. Hua Ryan MD AFV/MODL /[id number]
[2019-12-15] MEDS: ATORVASTATIN 20 MG TAB PO SCH (21:38)
[2019-12-16] VITALS (8 sets, daily range): BP systolic 111–150; BP diastolic 62–88
--- NOTE | 2019-12-16 00:09 | Progress Note ---
DATE: 12/15/2019 SUBJECTIVE: The patient was seen and evaluate in the intensive care unit today. The patient is being seen for the following problems. 1. Fever. 2. Coronary artery disease. 3. Wjy-MK-coujgauwt myocardial infarction. 4. History of coronary artery disease. 5. Chronic renal failure. 6. Status post bilateral endarterectomy. 7. Hypertension. The patient has been doing well. No distress. No chest pain. No fever. No chills. No abdominal pain. No nausea, no vomiting. OBJECTIVE: GENERAL: The patient is being alert, oriented to person, time, and place. The patient in no distress. VITAL SIGNS: Blood pressure 131/82, respirations 21, pulse 80, and temperature 99.5. HEENT: Head is atraumatic. NECK: Supple. No JVD. LUNGS: Clear to auscultation. HEART: Regular, rate, and rhythm. ABDOMEN: Soft. EXTREMITIES: No edema. NEURO: Nonfocal. PLAN OF CARE: Continue present care recommendations from cardiac standpoint noted. Dr. Briceno is following the patient. The patient does have occluded LAD, severe AV calcification and severely diseased RCA. Medical management is being recommended. Elevated troponin level likely related to demand supply mismatch. The patient has underlying chronic kidney disease. MD MAIRA Christensen/VIKKI /[id number] MTDD
[2019-12-16] MEDS: LEVOTHYROXINE SODIUM 50 MCG TAB PO SCH (06:29)
[2019-12-16] MEDS: ASPIRIN 81 MG ENTERIC COATED PO SCH (08:34)
[2019-12-16] MEDS: PIPER-TAZ 3.375 GM 50 ML IV SCH (08:34)
[2019-12-16] MEDS: TICAGRELOR 90 MG TABLET PO SCH ×2 (08:35→16:57)
[2019-12-16] MEDS: METOPROLOL TARTRATE 25 MG TAB PO SCH ×2 (08:35→16:57)
--- NOTE | 2019-12-16 09:51 | Progress Note ---
DATE: 12/16/2019 Cardiology Progress Note SUBJECTIVE: Jersey denies any chest pain or shortness of breath. He is eating breakfast today without any overnight issues. OBJECTIVE: VITAL SIGNS: Temperature 98 degrees, heart rate 62, blood pressure 111/62, respiratory rate 18, and O2 saturation 98%. BMI 28. GENERAL: In no acute distress. Alert. NECK: No JVD. CHEST: Clear to auscultation. CARDIOVASCULAR: Regular rate and rhythm. Normal S1 and S2. No S3. No S4. Systolic ejection murmur. ABDOMEN: Soft. Bowel sounds positive. EXTREMITIES: No edema. Warm distal extremities. Abnormal pedal pulses. CARDIOVASCULAR MEDICATIONS: Reviewed. Lovenox 40 mg subcutaneous daily, aspirin 81 mg daily, Brilinta 90 mg b.i.d., metoprolol tartrate 12.5 mg b.i.d., and atorvastatin 40 mg at bedtime. STUDIES: Reviewed. Sodium 138, potassium 3.9, chloride 103, bicarbonate 28, BUN 37, creatinine 1.7, and glucose 98. White blood cells 4.6, hemoglobin 10.4, and platelets 117. AST 35, ALT 18, and alkaline phosphatase 60. ASSESSMENT AND PLAN: 1. An 84-year-old man with severe coronary artery disease, presents with type 2 myocardial infarction. 2. Urinary tract infection. 3. Severe deconditioning. 4. Chronic kidney disease. 5. Anemia. 6. Hypertension and dyslipidemia. 7. History of cerebrovascular accident. 8. Hypothyroidism. RECOMMEND: Continue current cardiovascular medications. Blood pressure currently at goal. Dual antiplatelet therapy and statin therapy. Medical management for extensive severe multivessel CAD. MD AYAKA Wilder/MODL /[id number]
--- NOTE | 2019-12-16 10:15 | NUR ---
Pt unavailable at this time. Facilities staff making room repair. Will follow up as able. CHIP VALLE Vascular Sonographer Spiritual Care Department O: [phone]
--- NOTE | 2019-12-16 10:26 | Progress Note ---
DATE: SUBJECTIVE: The patient is seen and evaluated. Discussed with the patient and his family with the help of a platen grinder. REVIEW OF SYSTEMS: Complained of bilateral lower extremity pain, which is not new. No nausea, vomiting, fever, chills, chest pain, shortness of breath, headache, rash, dysuria, or polyuria. PHYSICAL EXAMINATION: VITAL SIGNS: Temperature is 98, pulse is 62, respirations 18, and blood pressure 111/62. GENERAL: Alert and oriented. No acute distress. CV: S1 and S2. CHEST: Equal expansion. Clear to auscultation. No acute distress. ABDOMEN: Soft and nontender. No distention. HEENT: Moist. No pallor. No JVD. EXTREMITIES: Weak. No obvious acute finding. No significant edema. MEDICATIONS: Medication reviewed. The patient is on Zosyn from ID point of view. LABORATORY STUDIES: White count of 4.6, hemoglobin 10.4, and platelets 117. Sodium 138, potassium 3.9, and creatinine 1.7, improved from 1.85. Serology; coronavirus PCR 12/13/2019, is negative. MICROBIOLOGY: Urine culture, Proteus mirabilis on 12/12. Blood culture, Proteus mirabilis on 12/12. IMAGING: Bilateral lower extremity venous Doppler negative for DVT. CT of abdomen and pelvis showed no gross acute abdominal or pelvic abnormalities. ASSESSMENT AND PLAN: 1. Sepsis on admission secondary to urinary tract infection. 2. Proteus mirabilis bacteremia. 3. Proteus mirabilis bacteremia urinary tract infection. 4. Also, the patient has improved creatinine, Zosyn is re-dosed secondary to renal insufficiency. 5. Peripheral vascular disease. 6. Lower extremity pain-negative for deep venous thrombosis on venous Doppler bilateral lower extremities. 7. Fever, resolved. 8. Hypothyroidism. 9. Hyperlipidemia. 10. The patient is on Zosyn. Please refer to chart for more information. Culture and sensitivity noted on the blood and urine culture. Discussed with Dr. Hyman in details. Please refer to chart for more information. Dictated by Ash Tai PA-C (Al) Kim Hyman MD /MODL /[id number]
[2019-12-16] MEDS: CEFTRIAXONE SOD 1 GM/NS 50 ML 50 ML IV SCH ×2 (12:50→23:35)
--- NOTE | 2019-12-16 14:26 | NUR ---
Received order for inpatient rehab eval. Spoke to pt and at bedside. Pt's chose [facility]. Signed choice letter placed in front of chart. Copy to . Referral faxed to [facility] at [phone]. Inés Heaton with [facility] was informed of referral.
[2019-12-16] MEDS ORDERED: ONDANSETRON HCL 4 MG ORAL DISINTEGRATING TAB PO PRN (16:30)
[2019-12-16] MEDS: ENOXAPARIN SOD INJ 40 MG/0.4 ML SYR SC SCH (16:57)
--- NOTE | 2019-12-16 18:50 | NUR ---
Report given to night time nanny. Respiration even and unlabored without SOB. Call light in reach.
[2019-12-16] MEDS: ATORVASTATIN 20 MG TAB PO SCH (20:14)
[2019-12-16] MEDS: ACETAMINOPHEN 325 MG TAB PO PRN (20:14)
--- NOTE | 2019-12-16 20:18 | Consultation ---
DATE OF CONSULTATION: 12/16/[address] Mascorro, Dr. Red Osuna and Dr. Hyman. REASON FOR CONSULTATION: Urinary retention and urinary tract infection. HISTORY: An 84-year-old male with a very interesting history from my part. In 2015, I saw him for the first time in my office complaining of urinary incontinence. At that time, the patient was placed on Flomax and Proscar. He failed to return for an appointment until 2016. In 2016, he comes in with problems with the worsening of incontinence. At that time, he had a 450 mL residual in the office. At that time, he had a Almonte catheter placed in. He was not taking his Flomax and Proscar. He was given a voiding trial, which showed that he had 170 mL residual. 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 We discussed doing an operation, which the patient refused. He was supposed to be seen in four months in 2016 to repeat the postvoid residual and a flow test, but he failed to come in until June 2019. At that time, again he had urinary incontinence. We measured his postvoid residual in the office of 450 mL and we placed a Almonte catheter in him. We restarted him on Flomax and Proscar, which he was not taking. There was a question marker whether Flomax caused him to feel off like being dizzy or not, but I could not verify that. A month later in July he comes back, we gave him a voiding trial and again he failed. This time he failed quite bad. He had over 400 mL residual in his bladder. We put a Almonte catheter again. We have been changing his Almonte catheter every month in the office. 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 I discussed the case with the son, told him that an operation at his age would be a risky operation and that his mental status may change under general anesthetic when he wakes up after the operation. The decision was to leave him with a Almonte catheter. Last Sunday, he came to the office after returning from [facility] the day before. Apparently, he was in [facility], he started having problems with the Almonte catheter. He was leaking around it. They went to a doctor in [facility] last week. This Almonte catheter was exchanged, but he continued to have problems, so the decision was to come to the [place] again and he showed up in my office coming straight out of [place]. In my office last Sunday we put a Almonte catheter and we did a urine culture and gave him Keflex antibiotic because he was in retention even with a Almonte catheter in, which was probably in the wrong place. Over the weekend, the called me regarding a fever that he had. I told her that since he just got back from [place] and being that [place] has pandemia of coronavirus that I felt that he needed to be in the hospital to be checked for coronavirus. I noticed that when he was admitted to the hospital, his coronavirus status was negative. Right now he has Proteus infection. He has been treated by Dr. Hyman. From the urological standpoint, there is nothing for me to do to this patient during this admission. I would have to discuss the problem that we are having with infection with the family and see what ever it is that they decide. It may be better to operate on the patient, let him be incontinent of urine by emptying the bladder rather than having a Almnote catheter, but that depends upon the family decision, understanding that there is risk involved. In 2015 and 2016, the patient had refused surgery. RECOMMENDATION: Home and I will see him in the office. MD ADAM KimG/MODL /[id number]
--- NOTE | 2019-12-16 20:38 | Progress Note ---
DATE: 12/16/2019 The patient is seen and evaluated on December 16, 2019. SUBJECTIVE: The patient is doing fine. The patient has been in no distress. Denies chest pain. No abdominal pain. No nausea or vomiting. The patient is being followed by ID pertaining patient's infectious process. Dr. Hyman evaluation noted. Basically, the patient is being followed up pertaining UTI, who presented with a history of fever and being treated for presumed sepsis secondary to Proteus mirabilis bacteremia and we are following kidney function, which according to the recent lab data of December 14, 2019 creatinine had come down to 1.76 and upon presentation creatinine was 1.93. I discussed patient condition with and the plan is to continue to be positive for Proteus mirabilis. OBJECTIVE: GENERAL: The patient was alert, oriented to person. The patient was in no distress. VITAL SIGNS: Blood pressure 137/66, respirations 20, pulse 57, temperature 98.1. HEENT: Normocephalic, atraumatic. NECK: Supple. No JVD. LUNGS: Clear to auscultation. HEART: Regular, rate, and rhythm. ABDOMEN: Soft, nontender. EXTREMITIES: No edema. NEURO: Nonfocal. ASSESSMENT: 1. Sepsis secondary to urinary tract infection, which has been caused by Proteus mirabilis. 2. Proteus mirabilis bacteremia. 3. Coronary artery disease. 4. Peripheral vascular disease. 5. Chronic kidney disease. 6. Anemia. 7. Hypertension. 8. History of cerebrovascular accident. 9. Hypothyroidism. PLAN OF CARE: Continue present care. Cardiology following the patient. Antibiotics per ID. Dual antiplatelet therapy and statin therapy. The patient is noted to have severe multivessel coronary artery disease. MD MAIRA Christensen/VIKKI /[id number]
[2019-12-17] VITALS (9 sets, daily range): BP systolic 100–129; BP diastolic 46–67
[2019-12-17] MEDS: LEVOTHYROXINE SODIUM 50 MCG TAB PO SCH (06:11)
[2019-12-17] MEDS: ASPIRIN 81 MG ENTERIC COATED PO SCH (09:31)
[2019-12-17] MEDS: METOPROLOL TARTRATE 25 MG TAB PO SCH ×2 (09:31→17:09)
[2019-12-17] MEDS: TICAGRELOR 90 MG TABLET PO SCH ×2 (09:31→17:08)
--- NOTE | 2019-12-17 11:21 | Progress Note ---
DATE: SUBJECTIVE: The patient seen and evaluated. Available labs and notes reviewed. Discussed with Dr. Hyman. Discussed with the patient's . REVIEW OF SYSTEMS: The patient is disappointed, not going home today and did not sleep well last night, therefore he is tired today. Otherwise, no nausea, vomiting, fever, chills, chest pain, shortness of breath, headache, rash, dysuria, or pyuria. PHYSICAL EXAMINATION: VITAL SIGNS: Temperature 99.4, pulse is 86, respirations 21, and blood pressure 129/67. GENERAL: Alert and oriented, in no acute distress, weak. Currently with PT. CV: S1 and S2. CHEST: Equal expansion. Some wheeze on the left side, otherwise clear to auscultation. ABDOMEN: Soft, obese, and nontender. HEENT: Moist. No pallor. No JVD. EXTREMITIES: Weak, moves all and walks with a four-point walker. MEDICATIONS: Medication list reviewed. From ID point of view, the patient is on Rocephin. LABORATORY STUDIES: White count of 4.6, hemoglobin 10.4, and platelet 117. No new BMP. Last creatinine was 1.76, which has improved from 1.85. MICROBIOLOGY: No new microbiology studies available. IMAGING: No new radiology studies available. ASSESSMENT AND PLAN: 1. Sepsis on admission. 2. Proteus mirabilis bacteremia. 3. Proteus mirabilis urinary tract infection. 4. Renal insufficiency, improved. 5. Peripheral vascular disease. 6. Hypothyroidism. 7. Hyperlipidemia. 8. Fever, resolved. 9. Debility - continue with PT/OT. 10. Antibiotic changed to Rocephin yesterday. Continue with antibiotics as planned. Continue to monitor the patient clinically. To follow with the labs. Please refer to chart for more information. Discussed with Dr. Hyman in details. Dictated by Ash Tai PA-C (Al) Kim Hyman MD /MODL /[id number]
[2019-12-17] MEDS: CEFTRIAXONE SOD 1 GM/NS 50 ML 50 ML IV SCH (12:24)
--- NOTE | 2019-12-17 13:12 | NUR ---
Per Inés with [facility], still pending insurance auth.
[2019-12-17] MEDS ORDERED: BISACODYL 10 MG SUPP PR ONE (16:00)
[2019-12-17] MEDS ORDERED: LACTULOSE SYRUP 20 GM/30 ML UDC PO PRN (16:00)
[2019-12-17] MEDS: ENOXAPARIN SOD INJ 40 MG/0.4 ML SYR SC SCH (17:09)
--- NOTE | 2019-12-17 19:15 | NUR ---
Patient received lying in bed. AAO x 3. at bedside. Patient had no complaints of pain. Respirations even and non-labored on 2L NC. Almonte catheter draining pale light abel urine. Safety measures in place. Patient instructed to call for assistance when needed. Call light within reach.
--- NOTE | 2019-12-17 19:58 | Progress Note ---
DATE: 12/17/2019 Cardiology Progress Note SUBJECTIVE: Mr. Mistry denies any chest pain or shortness of breath. OBJECTIVE: VITAL SIGNS: Temperature 98.4, heart rate 64, blood pressure 118/58, respiratory rate 17, and O2 saturation 99%. GENERAL: In no acute distress. Alert. NECK: No JVD. CHEST: Clear to auscultation. CARDIOVASCULAR: Regular rate and rhythm. Normal S1 and S2. ABDOMEN: Soft. Bowel sounds positive. EXTREMITIES: No edema. CARDIOVASCULAR MEDICATIONS: Reviewed. Brilinta 90 mg b.i.d., metoprolol tartrate 12.5 mg b.i.d., Lovenox 40 mg subcutaneous daily, atorvastatin 40 mg at bedtime, and aspirin 81 mg daily. STUDIES: Reviewed. Sodium 138, potassium 3.9, chloride 103, bicarbonate 28, BUN 37, creatinine 1.7, and glucose 98. White blood cells 4.6, hemoglobin 10.4, and platelets 117. AST 35, ALT 18, and alkaline phosphatase 60. ASSESSMENT AND PLAN: An 84-year-old man presents with type 2 myocardial infarction, hypertension, dyslipidemia, hypothyroidism, coronary artery disease, urinary tract infection, deconditioning, and peripheral vascular disease. RECOMMENDATIONS: Continue current cardiovascular medications. Currently symptom-free. Blood pressure at goal. Dual antiplatelet therapy and statin as well as beta-marc therapy advised. MD AYAKA Wilder/VIKKI /[id number]
[2019-12-17] MEDS: ATORVASTATIN 20 MG TAB PO SCH (21:31)
[2019-12-18] VITALS (9 sets, daily range): BP systolic 109–157; BP diastolic 51–74
[2019-12-18] MEDS: CEFTRIAXONE SOD 1 GM/NS 50 ML 50 ML IV SCH ×2 (01:06→11:11)
--- NOTE | 2019-12-18 03:45 | Progress Note ---
DATE: 12/17/2019 SUBJECTIVE: The patient was doing fine at the time of admission. The patient denies any complaints of fever or chills. No chest pain or shortness of breath. No abdominal pain. No nausea or vomiting. OBJECTIVE: GENERAL: The patient is alert, oriented to person, time, and place. VITAL SIGNS: Blood pressure 119/51, respirations 17, pulse 63, temperature 98.1. HEENT: Head is normocephalic, atraumatic. NECK: Supple. No JVD. LUNGS: Clear to auscultation. HEART: Rate and rhythm. ABDOMEN: Soft, nontender. EXTREMITIES: No edema. NEURO: Nonfocal. ASSESSMENT: 1. Sepsis, secondary to urinary tract infection, which is being caused by Proteus mirabilis. 2. Proteus mirabilis bacteremia. 3. Coronary artery disease. 4. Peripheral vascular disease. 5. Chronic kidney disease. 6. Anemia. 7. Hypertension. 8. History of cerebrovascular accident. 9. History of hypothyroidism. PLAN OF CARE: Continue present care. Cardiology following the patient. Antibiotics per ID. Dual antiplatelet therapy and statin therapy have been advised. The patient does have a multivessel coronary artery disease. Cardiology is following the patient. The patient has been on beta-blockers as well. ID evaluation noted. Continue antibiotics as planned. We will continue to follow up labs. Dr. Hyman evaluation noted. MD MAIRA Christensen/VIKKI /[id number]
[2019-12-18] MEDS: LEVOTHYROXINE SODIUM 50 MCG TAB PO SCH (06:47)
--- NOTE | 2019-12-18 06:55 | NUR ---
Walking rounds done. Patient resting comfortably. Shift report given to oncoming nurse.
--- NOTE | 2019-12-18 07:00 | NUR ---
Received bedside shift from off going night nurse. patient in stable condition, no s/s of distress noted. Telemetry applied. at bedside. Bed in lowest position and locked. Call light within reach.
[2019-12-18] MEDS: ASPIRIN 81 MG ENTERIC COATED PO SCH (08:35)
[2019-12-18] MEDS: TICAGRELOR 90 MG TABLET PO SCH ×2 (08:35→17:34)
[2019-12-18] MEDS: METOPROLOL TARTRATE 25 MG TAB PO SCH ×2 (08:38→17:34)
--- NOTE | 2019-12-18 11:32 | Progress Note ---
DATE: SUBJECTIVE: The patient is seen and evaluated. Available labs and notes reviewed. Discussed with Dr. Hyman. Discussed with the nurse. Please refer to chart for more information. REVIEW OF SYSTEMS: No nausea, vomiting, fever, chills, chest pain, shortness of breath, headache, rash, or dysuria. The patient wants to go home. PHYSICAL EXAMINATION: VITAL SIGNS: Temperature is 98.6, pulse is 67, respiration 20, and blood pressure 135/67. GENERAL: Alert and oriented. No acute distress. CV: S1 and S2. CHEST: Equal expansion. Clear to auscultation. No acute distress. ABDOMEN: Soft and nontender. No distention. HEENT: Moist. No pallor. No JVD. : The patient remains with a Almonte cath. MEDICATIONS: Medication list reviewed and from ID point of view, the patient is on Rocephin. LABORATORY STUDIES: White count of 4.6 with platelet 117. No new BMP. MICROBIOLOGY: No new microbiology studies available. RADIOLOGY STUDIES: No new radiology studies available. ASSESSMENT AND PLAN: 1. Sepsis, on admission. 2. Proteus mirabilis bacteremia. 3. Proteus mirabilis urinary tract infection. 4. Renal insufficiency. 5. Peripheral vascular disease. 6. Urinary retention. 7. Fever, resolved. 8. Hyperlipidemia. 9. Debility. 10. Discussed with Dr. Geovani Cordon, Urology yesterday. The patient most likely going to end up with a suprapubic catheter. Continue with antibiotic at this point. Monitor the patient clinically and follow with the labs. The patient remains on Rocephin. Further management of this patient is based on daily findings on laboratory and physical examination. Dictated by Ash Tai PA-C (Al) Kim Hyman MD /MODL /[id number]
--- NOTE | 2019-12-18 15:10 | NUR ---
Received call from pt's son Tesfaye Peña [phone]. He states the family would like for pt to go home with home health rather than inpatient rehab. CM spoke with pt and at bedside and they also want pt to return home with home health services. CM called and spoke to Dr. Mascorro. States ok to set up home health, abx per ID. CM spoke to CORINNE Lam. Said pt can dc on oral Cipro. Gave pharmacy information for Al to call in prescription. CM to pt's bedside. Spoke to pt and on home health choice. States to use any company in network with insurance. Choice letter signed for [facility] and [facility]. Copy of choice letter, with contact numbers, given to pt's . CM asked that they call company if they do not hear from them within 24 hrs of discharge. IMM letter discussed. They verbalized understanding. [place]i copy provided to pt's . Informed pt's that prescription for antibiotics will be called into pharmacy ([facility] [phone]) Signed choice letter and IMM placed in chart. Referral for home health faxed to [facility] at [phone] / . Addendum: 12/18/19 at 1516 by Emi Bloom CM DONI notified Inés with [facility] that pt would like to go home and to cancel referral. Addendum: 12/18/19 at 1619 by Emi Bloom CM First fax did not go thru. Spoke to Yolanda in office at [facility]. Gave new fax number [phone]. Confirmation received for fax.
[2019-12-18] MEDS: ENOXAPARIN SOD INJ 40 MG/0.4 ML SYR SC SCH (17:34)
--- NOTE | 2019-12-18 19:04 | NUR ---
Completed bedside shift report and rounding with on coming night nurse. Patient in stable condition, no s/s of distress noted. No pain voiced. at bedside. Telemetry applied. Almonte applied and patent draining yellow urine into drainage bag. Bed in lowest position and locked. Call light within reach.
--- NOTE | 2019-12-18 19:20 | NUR ---
Patient received lying in bed. at bedside. AAO x 3. No acute distress noted. Fall precautions implemented. Telemetry and Almonte catheter in place. Patient instructed to call for assistance when needed. Call light within reach.
[2019-12-18] MEDS: ATORVASTATIN 20 MG TAB PO SCH (20:45)
--- NOTE | 2019-12-18 21:06 | Progress Note ---
DATE: 12/18/2019 Cardiology Progress Note SUBJECTIVE: Mr. Mistry denies any chest pain or shortness of breath. OBJECTIVE: VITAL SIGNS: Temperature 98.6, heart rate 67, blood pressure 135/67, respiratory rate 20, O2 saturation 97%, BMI 28. GENERAL: No acute distress, alert. NECK: No JVD. CHEST: Clear to auscultation. CARDIOVASCULAR: Regular rate and rhythm. Normal S1, S2. Systolic ejection murmur. No S3. No S4. ABDOMEN: Soft. Bowel sounds positive. EXTREMITIES: No edema. CARDIOVASCULAR MEDICATIONS: Reviewed Brilinta 90 mg b.i.d., hydralazine 10 mg q.4 hours p.r.n., metoprolol tartrate 12.5 mg b.i.d., atorvastatin 40 mg at bedtime, Lovenox 40 mg subcu daily, aspirin 81 mg daily. LABORATORY DATA: Studies reviewed. Sodium 138, potassium 3.9, chloride 103, bicarbonate 28, BUN 37, creatinine 1.7, glucose 98, white blood cell 4.6, hemoglobin 10.4, platelets 117. AST 35, ALT 18, alkaline phosphatase 60. ASSESSMENT AND PLAN: 1. An 84-year-old man presents with urinary tract infection. 2. Type 2 myocardial infarction. 3. Hypertension, dyslipidemia. 4. Severe coronary artery. 5. Peripheral vascular disease. 6. Chronic kidney disease. Recommend continue current cardiovascular medications. Medical management for coronary artery disease. Overall, severely deconditioned, guarded prognosis. Hau Ryan MD AFMike/MODL /[id number]
--- NOTE | 2019-12-18 22:06 | NUR ---
Patient seen and evaluated SUBJECTIVE: The patient was doing fine at the time of my visit. The patient denies any complaints of fever or chills. No chest pain or shortness of breath. No abdominal pain. No nausea or vomiting. N urinary symptoms OBJECTIVE: GENERAL: The patient is alert, oriented to person, time, and place. VITAL SIGNS: Afebril VSS . HEENT: Head is normocephalic, atraumatic. NECK: Supple. No JVD. LUNGS: Clear to auscultation. HEART: Rate and rhythm. ABDOMEN: Soft, nontender. EXTREMITIES: No edema. NEURO: Nonfocal. ASSESSMENT: 1. Sepsis, secondary to urinary tract infection, which is being caused by Proteus mirabilis. 2. Proteus mirabilis bacteremia. 3. Coronary artery disease. 4. Peripheral vascular disease. 5. Chronic kidney disease. 6. Anemia. 7. Hypertension. 8. History of cerebrovascular accident. 9. History of hypothyroidism. PLAN OF CARE: Continue with antibiotic as ordered, antibiotics per ID Cipro for 2 weeks. Continue with PT/OT while here. Continue present meds
[2019-12-19] VITALS: BP 123/68
[2019-12-19] MEDS: CEFTRIAXONE SOD 1 GM/NS 50 ML 50 ML IV SCH ×2 (00:41→11:02)
[2019-12-19 04:00] VITALS: BP 124/65
--- NOTE | 2019-12-19 07:00 | NUR ---
Shift report given to oncoming nurse.
[2019-12-19 07:31] VITALS: BP 134/69
[2019-12-19 08:07] VITALS: BP 134/69
[2019-12-19] MEDS: ASPIRIN 81 MG ENTERIC COATED PO SCH (08:46)
[2019-12-19] MEDS: TICAGRELOR 90 MG TABLET PO SCH (08:46)
[2019-12-19] MEDS: METOPROLOL TARTRATE 25 MG TAB PO SCH (08:47)
--- NOTE | 2019-12-19 10:18 | NUR ---
Spoke with Yolanda mueller [facility], states they are able to accept pt. CM will call back once dc is confirmed.
[2019-12-19 11:00] VITALS: BP 136/53
--- NOTE | 2019-12-19 11:34 | Progress Note ---
DATE: SUBJECTIVE: The patient is seen and evaluated. Available labs and notes reviewed. Discussed with the patient. Discussed with the with the help of mink rancher. Discussed with case Management yesterday. REVIEW OF SYSTEMS: No nausea, vomiting, fever, chills, chest pain, shortness of breath, headache, rash, dysuria, or polyuria. MEDICATIONS: Reviewed. From ID point of view, the patient is on Rocephin. LABORATORY STUDIES: White count of 4.6 with a hemoglobin of 10.4 and platelet 117. No new CBC or BMP. Last creatinine was 1.76 with estimated GFR of 37. MICROBIOLOGY: Blood culture, Proteus mirabilis. Urine culture, Proteus mirabilis. PHYSICAL EXAMINATION: VITAL SIGNS: Temperature 97.7, pulse 72, respirations 17, and blood pressure 134/69. GENERAL: Alert and oriented, no acute distress. CV: S1-S2. CHEST: Equal expansion. Clear to auscultation. No acute distress. ABDOMEN: Soft. Nontender. No distention. HEENT: Moist. No pallor. No JVD. EXTREMITIES: Weak. No obvious cyanosis or clubbing. ASSESSMENT AND PLAN: 1. Type 2 myocardial infarction. 2. Hypertension. 3. Hyperlipidemia. 4. Peripheral vascular disease. 5. Urinary insufficiency. Continue with antibiotic as ordered, prescription called in for the patient to the pharmacy of his choice yesterday, Cipro renally dosed for 2 weeks. Continue with PT/OT while here. Further management of this patient based on daily findings on laboratory and physical examination. Thank you for this dictation. Discussed with Dr. Hyman in details. MD EVA Cali/VIKKI /[id number]
--- NOTE | 2019-12-19 14:25 | NUR ---
Discharge home Follow up Dr. Red Osuna
--- NOTE | 2019-12-19 14:40 | NUR ---
Nutrition Screen Note RD Recommendation for Physician: -Continue cardiac diet Plan of Care: RD following, monitoring for tolerance and adequacy Nutrition reason for involvement: length of stay Primary Diagnose(s): UTI, weakness PMH: HTN, CAD, HLD Ht: 65 in Wt: 169 lb BMI: 28.1 kg/m2 IBW: [address] Assessment: (12/19/19) Chart reviewed. Labs and meds reviewed. Pt is an 84 year old male admitted with UTI and weakness. It is recorded that pt has been consuming 75-100% of meals. Per weight history, pt weighed 173 lbs in January 2019. Pt currently weighs 169 lbs; therefore, no significant weight loss is evident. Will continue to monitor. Current Diet: cardiac Malnutrition Evaluation (12/19/19) The patient does not meet criteria for a specified degree of malnutrition at this time. Will re-evaluate at follow-up as appropriate. Diet Education Needs Assessment: RD is available for diet education as needed Nutrition Care Level: low Signed: Renetta Chester, RD, LD
[2019-12-19 16:06] VITALS: BP 126/60
--- NOTE | 2019-12-19 17:34 | NUR ---
Patient discharged home with home health. Patient off the unit @ 1734 via wheelchair accompanied to the lobby by the PCT. Patient in stable condition, no s/s of distress noted. No pain voiced. IV access removed with tip intact. All personal items taken with and patient. Discharge teaching and instruction given to the and patient. and patient verbalized understanding. Explained to the that the perception was called into their pharmacy for her to picking table worker.
--- NOTE | 2019-12-22 16:49 | NUR ---
CM REC'D CALL TODAY FROM [facility]SE [employer] STATING PT'S DTR CALLED AND WANTS TO KNOW WHY PT WAS NOT DISCHARGED WITH OXYGEN ON REVIEW OF RECORD, PT NEVER DESATTED TO 88% WHILE IN HOSPITAL AND NO ORDER FOR HOME 02 REC'D DTR STATES PT'S IS CRYING BECAUSE PT IS SO SOB CM CALLED [facility] AND SPOKE WITH NURSE SEEING PT, BONITA SHE STATES THAT PT'S SATS ON ROOM AIR AT REST ON ADMIT WAS 85% BONITA RECOMMENDED TO PT'S AND SON THAT HE RETURN TO ER TO BE ASSESS, LETCIA STATES SON REPLIED, "HE'LL BE FINE. WE'RE NOT TAKING HIM BACK TO THE ER" DONI CALLED DR REYES TO NOTIFY HIM OF ABOVE. DR REYES STATES PT NEEDS TO COME BACK TO THE ED FOR ASSESSMENT DOIN CALLED PT'S DTR ELISEO SCHMIDT CELL [phone]; EXPLAINED THAT DR REYES WANTS PT TO RETURN TO THE ER; SHE STATES SHE WILL CALL HER BROTHER AND MOTHER AND EXPLAIN DR REYES'S RECOMMENDATIONS
== END 2019-12-19 17:34 | disposition home or self-care (01) | DRG 698 ==
LOC: ER 23:36 → ERHOLD 12-13 04:07 → MED/SURG2 12-13 04:22 → UNDODISIN 12-19 11:21
PROVIDERS: ADMIT Internal Medicine; ATTEND Internal Medicine
DX: T83.511A Infection and inflammatory reaction due to indwelling urethral catheter, initial encounter (principal); A41.9 Sepsis, unspecified organism; I21.A1 Myocardial infarction type 2; N10 Acute pyelonephritis; N17.9 Acute kidney failure, unspecified; N39.0 Urinary tract infection, site not specified; Z86.73 Personal history of transient ischemic attack (TIA), and cerebral infarction without residual deficits; I25.10 Atherosclerotic heart disease of native coronary artery without angina pectoris; K21.9 Gastro-esophageal reflux disease without esophagitis; Z90.49 Acquired absence of other specified parts of digestive tract; Z11.59 Encounter for screening for other viral diseases; J06.9 Acute upper respiratory infection, unspecified; N18.9 Chronic kidney disease, unspecified; E03.9 Hypothyroidism, unspecified; N40.1 Benign prostatic hyperplasia with lower urinary tract symptoms; R33.8 Other retention of urine; B96.4 Proteus (mirabilis) (morganii) as the cause of diseases classified elsewhere; F03.90 Unspecified dementia, unspecified severity, without behavioral disturbance, psychotic disturbance, mood disturbance, and anxiety; R53.81 Other malaise; I12.9 Hypertensive chronic kidney disease with stage 1 through stage 4 chronic kidney disease, or unspecified chronic kidney disease
CPT/HCPCS: 36415; 71045; 74176; 80048; 80053; 81001; 82550; 82553; 83880; 84484; 85025; 87040; 87071; 87086; 87186; 87205; 87635; 93005; 93306; 93970; 97139; 99251; 99284; J0696; J1650; J2543; J7030; J7040

== ENCOUNTER 2019-12-22 18:19 | Inpatient (IN) | payer MEDICARE, OTHER ==
[~2019-12-22] VITALS: Ht 165.1 cm; Wt 76.7 kg
[~2019-12-22 18:19] MED LIST changes: +ASPIR 8181 MG PO; +BRILINTA90 MG PO; +LASIX20 MG PO; +METOPROLOL TART25 MG PO
[2019-12-22] MEDS ORDERED: CEFTRIAXONE SOD 1 GM/NS 50 ML 50 ML IV ONE ×2 (19:00→23:50)
[2019-12-22] MEDS ORDERED: AZITHROMYCIN 500MG/NS 250 ML 250 ML IV ONE (19:15)
--- NOTE | 2019-12-22 20:39 | Diagnostic Imaging Report ---
EXAMINATION: CHEST SINGLE (PORTABLE) INDICATION: Shortness of breath. COMPARISON: 12/13/2019. FINDINGS: TUBES and LINES: None. LUNGS and PLEURA: The lungs are mildly hypoinflated. Bilateral perihilar, peribronchial thickening. Interval development of bilateral small pleural effusions. No pneumothorax. Patchy density in the lung bases may represent bibasilar subsegmental atelectasis. Prominence of the pulmonary vasculature with redistribution bilaterally. HEART AND MEDIASTINUM: The cardiomediastinal silhouette is borderline enlarged. Aortic calcifications. BONES AND SOFT TISSUES: No acute osseous lesion. Soft tissues are unremarkable. Surgical clips in the lower neck. UPPER ABDOMEN: No free air under the diaphragm. IMPRESSION: Interval development of bilateral small pleural effusions and bibasilar subsegmental atelectasis. Bilateral pulmonary venous congestion. Signed by: Dr. Georges Bajwa M.D. on 12/22/2019 8:36 PM
--- NOTE | 2019-12-22 20:50 | Emergency Department Note ---
History of Present Illnes History of Present Illness Chief Complaint: Respiratory History of Present Illness This is a 84 year old male arrives to the ED with complaints of low sa turation, patient was recently admitted to the hospital for urinary tract infection and was discharged home, was seen outpatient physical therapy for rehabilitation for oxygen saturation was noted to be low. Chief Complaint Comment PATIENT SENT FROM THERAPY FOR LOW O2 SATS; PATIENT WAS RECENTLY ADMITTED FOR 5 DAYS FOR A UTI; PATIENT WENT TO PHYSICAL THERAPY TODAY AND WAS SENT FOR EVALUATION FOR LOW O2 SATS. PATIENT 93% ON ROOM AIR UPON ARRIVAL. PATIENT DENIES ANY PAIN OR SHORTNESS OF BREATH WHEN SITTING, BUT STATES HE GETS SHORT OF BREATH WHEN WALKING Historian: Patient, Family Member Arrival Mode: [employer] Required: No Onset (how long ago): hour(s) Radiation: Reports non-radiation Severity: mild Duration (how long): hour(s) Timing of current episode: constant Progression: unchanged Chronicity: new Exacerbating factors: none Associated symptoms: Reports shortness of breath Treatments prior to arrival: none Past Medical/Family History Physician Review I have reviewed the patient's past medical and family history. Any updates have been documented here. Past Medical History Recent Fever: No Clinical Suspicion of Infectio: No New/Unexplained Change in Ment: No Past Medical History: Hypertension, TIA, CAD, UTI's, GERD Past Surgical History: Appendectomy Other Surgery: Carodid Endartectomy 10 years ago TIA 15 years ago Appendectomy in his youth(does not remember age) CEA 02/18/19 Social History Smoking Cessation: Never Smoker Alcohol Use: None Any Illegal Drug Use: No Family History Family history of heart diseas: No Other Last Tetanus: UNKNOWN Review of Systems Review of Systems Constitutional: Reports no symptoms EENTM: Reports no symptoms Cardiovascular: Reports no symptoms Respiratory: Reports as per HPI, Reports dyspnea Gastrointestinal: Reports no symptoms Genitourinary: Reports no symptoms Musculoskeletal: Reports no symptoms Integumentary: Reports no symptoms Neurological: Reports no symptoms Psychological: Reports no symptoms Endocrine: Reports no symptoms Hematological/Lymphatic: Reports no symptoms Review of other systems: All other systems negative Physical Exam Related Data Allergies: Coded Allergies: No Known Allergies (Unverified , 12/14/11) Triage Vital Signs Vital Signs Date Time Temp Pulse Resp B/P (MAP) Pulse Ox O2 Delivery O2 Flow Rate FiO2 12/22/19 18:36 98.2 77 22 135/85 93 Vital signs reviewed: Yes Physical Exam CONSTITUTIONAL Constitutional: Present well-developed, Present ill appearing HENT HENT: Present normocephalic, Present atraumatic, Present oropharynx clear/moist, Present nose normal HENT L/R: Present left ext ear normal, Present right ext ear normal EYES Eyes: Reports PERRL, Reports conjunctivae normal NECK Neck: Present ROM normal PULMONARY Pulmonary: Present effort normal, Present respiratory distress CARDIOVASCULAR Cardiovascular: Present regular rhythm, Present heart sounds normal, Present capillary refill normal, Present normal rate GASTROINTESTINAL Abdominal: Present soft, Present nontender, Present bowel sounds normal GENITOURINARY Genitourinary: Present exam deferred SKIN Skin: Present warm, Present dry MUSCULOSKELETAL Musculoskeletal: Present ROM normal NEUROLOGICAL Neurological: Present alert, Present oriented x 3, Present no gross motor or sensory deficits PSYCHOLOGICAL Psychological: Present mood/affect normal, Present judgement normal Results Laboratory Lab results reviewed: Yes Imaging Imaging results reviewed: Yes Assessment & Plan Medical Decision Making MDM 84-year-old male arrives to the ED with hypoxia, chest x-ray consistent with fluid overload. Patient given Lasix and admitted for CHF exacerbation. No concerns of infectious etiology at time of admission. Assessment & Plan Final Impression: (1) CHF (congestive heart failure) Depart Disposition: ADMITTED Last Vital Signs Date Time Temp Pulse Resp B/P (MAP) Pulse Ox O2 Delivery O2 Flow Rate FiO2 12/22/19 18:36 98.2 77 22 135/85 93 Home Meds Active Scripts Furosemide (FUROSEMIDE) 40 Mg Tablet, 40 MG PO BID@06,18 for 30 Days, 0 Refills Prov:MJ SINGH MD, ABIM 12/25/19 Cefdinir (OMNICEF) 300 Mg Capsule, 300 MG PO BID for 4 Days, CAP 0 Refills Prov:MJ SINGH MD, ABIM 12/25/19 Metoprolol Tartrate (METOPROLOL TARTRATE) 25 Mg Tablet, 12.5 MG PO TID for 30 Days, TAB 0 Refills Prov:MJ SINGH MD, ABIM 12/25/19 Reported Medications Ticagrelor (BRILINTA) 90 Mg Tablet, 90 MG PO BID 12/13/19 Aspirin (ASPIR 81) 81 Mg Tablet.dr, 81 MG PO DAILY 12/13/19 Atorvastatin Calcium (LIPITOR) 20 Mg Tablet, 40 MG PO HS, #30 TAB 01/08/19 Levothyroxine Sodium (Levoxyl) 50 Mcg Tablet, 50 MCG PO DAILY 12/14/11 Medications in the ED Ceftriaxone Sodium 50 ml @ 100 mls/hr ONCE ONCE IV ; Start 12/22/19 at 19:00; Stop 12/22/19 at 19:29; Status DC Azithromycin 250 ml @ 250 mls/hr NOW ONCE IV ; Start 12/22/19 at 19:15; Stop 12/22/19 at 20:14; Status DC MATHEUS CARTY, Dec 22, 2019 20:49
[2019-12-22 21:10] LABS: BILIRUBIN,URINE NEGATIVE (NEGATIVE); CLARITY,URINE SL CLOUDY (CLEAR); COLOR,URINE YELLOW (YELLOW); KETONES,URINE NEGATIVE (NEGATIVE); LEUKOCYTE ESTERASE ,URINE TRACE (NEGATIVE); NITRITE,URINE NEGATIVE (NEGATIVE); PROTEIN,URINE DIPSTICK TRACE (NEGATIVE); URINE UROBILINOGEN 0.2 mg/dL (0.2 - 1)
[2019-12-22 21:18] LABS: RBC,URINE 0-5 /HPF (0-5); WBC,URINE (MAN) 0-5 /HPF (0-5)
[2019-12-22 21:19] LABS: BACTERIA,URINE MANY /HPF; EPITHELIAL CELLS,URINE RARE /LPF
[2019-12-22 22:16] LABS: BASOPHILS % 0.7 % (0.0-1.0); EOSINOPHILS # (AUTO) 0.5 (0.0-0.4); EOSINOPHILS % 7.7 % (0.0-6.0); HEMATOCRIT 33.7 % (38.2-49.6); HEMOGLOBIN 10.4 g/dL (14.0-18.0); LYMPHOCYTES # (AUTO) 1.3 (1.0-3.2); LYMPHOCYTES % 20.6 % (18.0-39.1); MEAN CORPUSCULAR HGB CONC 30.9 g/dL (31-35); MEAN CORPUSCULAR VOLUME 100.6 fL (81-99); MONOCYTES # (AUTO) 0.6 (0.2-0.8); NEUTROPHILS # (AUTO) 3.8 (2.1-6.9); NEUTROPHILS % 61.3 % (38.7-80.0); PLATELET COUNT 290 x10e3/uL (140-360); RED BLOOD COUNT 3.35 x10e6/uL (4.3-5.7)
[2019-12-22 22:39] LABS: INR 1.04; PROTHROMBIN TIME 14.2 seconds (11.9-14.5)
[2019-12-22 22:40] LABS: PARTIAL THROMBOPLASTIN TIME 29.7 seconds (23.8-35.5)
[2019-12-22 22:50] LABS: ALANINE AMINOTRANSFERASE 40 IU/L (0-55); ALBUMIN 2.9 g/dL (3.5-5.0); ALBUMIN/GLOBULIN RATIO 0.8 (0.8-2.0); ALKALINE PHOSPHATASE 78 IU/L (40-150); ANION GAP 11.6 mmol/L (8-16); BLOOD UREA NITROGEN 26 mg/dL (7-26); BUN/CREATININE RATIO 23 (6-25); CARBON DIOXIDE 23 mmol/L (22-29); CHLORIDE 107 mmol/L (98-107); CREATINE KINASE 44 IU/L (30-200); CREATININE, SERUM 1.12 mg/dL (0.72-1.25); EST GLOMERULAR FILTRATION RATE > 60 ML/MIN (60-); GLUCOSE 89 mg/dL (74-118); POTASSIUM 4.6 mmol/L (3.5-5.1); SODIUM 137 mmol/L (136-145)
[2019-12-22 23:02] LABS: CALCIUM 9.5 mg/dL (8.4-10.2)
[2019-12-22] MEDS ORDERED: AZITHROMYCIN 500MG/NS 250 ML 250 ML ONE (23:50)
--- NOTE | 2019-12-23 02:17 | NUR ---
SPOKE WITH ANNA BELLO RN [employer] CONSULTANT TO INITIATE TRANSFER. WAITING FOR CALL BACK FOR BED AVAILABILITY.
[2019-12-23] MEDS ORDERED: DEXAMETHASONE SOD PHOS 10 MG/1 ML VIAL IV ONE (05:30)
[2019-12-23] MEDS: ALBUTEROL SULFATE HFA 8GM INHALATION AEROSOL INH PRN ×2 (05:58→08:40)
[2019-12-23] MEDS ORDERED: ACETAMINOPHEN 325 MG TAB PO PRN (06:30)
--- NOTE | 2019-12-23 07:20 | NUR ---
NURSING REPORT RECEIVED FROM PATRICE DAVIS.
--- NOTE | 2019-12-23 09:31 | NUR ---
PT NOTED TO HAVE INCREASED O2 DEMAND, PLACED VENTI MASK @ 50% FIO2.
[2019-12-23] MEDS ORDERED: FUROSEMIDE INJ 10 MG/ML 4 ML VIAL IV ONE (10:15)
[2019-12-23] MEDS ORDERED: MORPHINE SULFATE 2 MG/ML SYR 1ML IV PRN (11:00)
[2019-12-23] MEDS ORDERED: ONDANSETRON HCL INJ 2MG/ML 2ML 2 MG/ML VIAL IV PRN (11:00)
[2019-12-23] MEDS: ASPIRIN 81 MG CHEW TAB PO SCH (11:07)
[2019-12-23] MEDS ORDERED: ASPIRIN 81 MG CHEW TAB PO ONE (11:15)
--- NOTE | 2019-12-23 11:28 | Consultation ---
DATE OF CONSULTATION: Pulmonary Critical Care Consultation CHIEF COMPLAINT: Dyspnea and congestion. HISTORY OF PRESENT ILLNESS: The patient is an 84-year-old man. He has a history of his severe cardiovascular disease. He had two carotid endarterectomies on each side. He has had two prior myocardial infarctions before. In August of 2018, he had a cardiac catheterization that showed an occluded left anterior descending artery with filling from the collaterals. He also had diffuse disease in the other arteries. No stents were required. He required admission to [facility] on the 12 of December with a non-ST wave OR as well as some worsening dyspnea, congestion and hypertension. He was seen by Cardiology. His COVID test was negative and he was subsequently discharged. The patient now returns with worsening dyspnea. He has some confusion. He does not complain of fever. He has no chest pain. He does have some phlegm and some cough. PAST SURGICAL HISTORY: 1. Status post left carotid endarterectomy. 2. Status post right carotid endarterectomy. 3. Status post cardiac cath in 2018. PAST MEDICAL HISTORY: 1. Hypertension. 2. Coronary artery disease. 3. Chronic systolic and diastolic heart failure. 4. Benign prostatic hypertrophy. SOCIAL HISTORY: The patient is not a smoker or drinker. ALLERGIES: THERE ARE NO KNOWN DRUG ALLERGIES. REVIEW OF SYSTEMS: The patient reports some dyspnea. There is some confusion. He has no headache. He has no chest pain. He does have some phlegm production and complains of phlegm in his throat. He has no abdominal pain. He has no nausea or vomiting. He has no leg edema. PHYSICAL EXAMINATION: VITAL SIGNS: The patient is afebrile. The blood pressure is 149/80 and the saturation is 97%. The pulse is 76. The respiratory rate is 14. HEENT: Shows no facial swelling or erythema. CARDIAC: Reveals a regular rate and rhythm with normal S1 and S2. LUNGS: Auscultation of lungs reveals crackles in the bases. There is no wheezing. ABDOMEN: Soft, nontender. There is no rebound or guarding. EXTREMITIES: Shows no leg edema. RADIOGRAPHIC DATA: Chest x-ray shows small bilateral effusions in subsegmental atelectasis. There is bilateral congestion suggestive of congestive heart failure. LABORATORY DATA: White blood cell count is 6, hemoglobin is 10.4, and the platelet count is 290. The BUN to creatinine ratio is 26 to 1.12. The BNP is 1181. Coronavirus test on the showed no virus. Urinalysis is within normal limits. IMPRESSION: 1. Acute on chronic congestive heart failure. 2. Benign prostatic hypertrophy with recent urinary tract infection from [facility]. 3. Peripheral vascular disease. 4. Prior cerebrovascular accident. 5. Anemia. 6. Chronic renal insufficiency with stage 2 kidney disease. PLAN: 1. Give Lasix and continue prior cardiac regimen. 2. Echocardiogram and Cardiology consultation. 3. Continue oxygen as needed. 4. Repeat urinalysis and blood cultures. 5. Inhalers as needed. Conrado Brambila MD [facility]/MODL /[id number]
[2019-12-23 12:00] VITALS: BP 126/95
[2019-12-23 13:06] VITALS: BP 133/86
--- NOTE | 2019-12-23 14:11 | NUR ---
Recvd patient from ER, AAOx2-3, ON Hyatt catheter, Oxygen on high flow mask 50%, call light in reach
[2019-12-23 14:47] LABS: BASOPHILS % 0.3 % (0.0-1.0); EOSINOPHILS % 0.2 % (0.0-6.0); HEMATOCRIT 37.1 % (38.2-49.6); HEMOGLOBIN 11.4 g/dL (14.0-18.0); LYMPHOCYTES # (AUTO) 0.4 (1.0-3.2); LYMPHOCYTES % 6.4 % (18.0-39.1); MEAN CORPUSCULAR HEMOGLOBIN 31.7 pg (28-32); MEAN CORPUSCULAR HGB CONC 30.7 g/dL (31-35); MEAN CORPUSCULAR VOLUME 103.1 fL (81-99); MONOCYTES % 0.7 % (4.4-11.3); NEUTROPHILS # (AUTO) 5.5 (2.1-6.9); NEUTROPHILS % 91.7 % (38.7-80.0); PLATELET COUNT 342 x10e3/uL (140-360); RED CELL DISTRIBUTION WIDTH 13.2 % (11.7-14.4)
[2019-12-23 15:07] LABS: ALBUMIN 3.1 g/dL (3.5-5.0); ALBUMIN/GLOBULIN RATIO 0.8 (0.8-2.0); ANION GAP 16.8 mmol/L (8-16); CALCIUM 9.3 mg/dL (8.4-10.2); CREATININE, SERUM 1.37 mg/dL (0.72-1.25); POTASSIUM 4.8 mmol/L (3.5-5.1)
[2019-12-23 15:13] LABS: CREATINE KINASE MB 5.9 ng/mL (0-5.0)
[2019-12-23 15:14] VITALS: BP 120/84
[2019-12-23] MEDS ORDERED: CLOPIDOGREL BISULFATE 75 MG TAB PO SCH (16:30)
[2019-12-23] MEDS ORDERED: METOPROLOL TARTRATE 25 MG TAB PO SCH (17:00)
[2019-12-23] MEDS: TICAGRELOR 90 MG TABLET PO SCH (17:54)
--- NOTE | 2019-12-23 18:53 | NUR ---
patient up in bed, Alert with no distress, bed alarm ON, Dr Briceno had rounds
--- NOTE | 2019-12-23 19:00 | NUR ---
RECEIVED PATIENT IN BEDSIDE SHIFT REPORT. PATIENT RESTING IN BED AT THIS TIME. O2 @ 15L VIA FACE MASK, SP02@93%. PATIENT REMOVES MASK FREQUENTLY, REMINDED PATIENT TO KEEP IT ON. LEBLANC CATHETER IN PLACE, DRAINING CLEAR, YELLOW URINE. TELE MONITOR ON. NO PAIN REPORTED. NO S&S OF DISTRESS NOTED. BED LOCKED IN LOWEST POSITION, SIDE RAILS UPX2, CALL LIGHT IN REACH. BED ALARM ACTIVE AT ALL TIMES.
[2019-12-23 20:00] VITALS: BP 122/76
[2019-12-23] MEDS: ATORVASTATIN 20 MG TAB PO SCH (20:25)
[2019-12-23] MEDS: FUROSEMIDE INJ 10 MG/ML 4 ML VIAL IV SCH (20:25)
--- NOTE | 2019-12-23 22:42 | Consultation ---
DATE OF CONSULTATION: 12/23/2019 Cardiology Consultation Consulting Physician: Mike Mccrary M.D. Refering physician: Hua Briceno M.D. - interventional cardiology REASON FOR CONSULTATION: Shortness of breath. HISTORY OF PRESENT ILLNESS: This is a pleasant 84-year-old man, well known to me. The patient has history of coronary artery disease, chronic systolic and diastolic mixed heart failure; carotid disease, status post bilateral carotid endarterectomies; and prior history of cerebrovascular events, severe peripheral vascular disease, hypertension, deconditioning, dementia, edema of the lower extremities. He remains afebrile. He denies any cough. His repeat COVID-19 test is negative. He reports no complaints of chest discomfort and dyspnea as well as lower extremity edema. He remains somewhat confused however. REVIEW OF SYSTEMS: A 12-System review is negative except for as noted above. ALLERGIES: NO KNOWN DRUG ALLERGIES. PAST MEDICAL HISTORY: As per HPI. SOCIAL HISTORY: No active smoking, alcohol, or drugs. FAMILY HISTORY: Noncontributory. PHYSICAL EXAMINATION: VITAL SIGNS: Temperature 97.8, heart rate 99, blood pressure 120/84, respiratory rate 18, and O2 saturation 98%. GENERAL: In no acute distress, alert. NECK: JVD to lower third of neck. CHEST: Decreased breath sounds bilateral bases, scattered rales. CARDIOVASCULAR: Regular rate and rhythm. Normal S1 and S2. No S3 or S4. ABDOMEN: Soft. Bowel sounds positive. EXTREMITIES: With trace edema. CARDIOVASCULAR MEDICATIONS: Reviewed. Atorvastatin 40 mg at bedtime, ticagrelor 90 mg b.i.d., furosemide 40 mg IV every 12 hours, aspirin 81 mg daily, and metoprolol tartrate 12.5 mg b.i.d. LABORATORY DATA: Studies reviewed; sodium 138, potassium 3.8, chloride 104, bicarbonate 22, BUN 26, creatinine 1.3, and glucose 147. White blood cells 5.9, hemoglobin 11.4, and platelets 342. PT 14, PTT 29. INR 1. AST 26, ALT 40, alkaline phosphatase 88 ASSESSMENT AND PLAN: 84-year-old man with; 1. Lgoig-bi-unulvlp mixed systolic and diastolic heart failure. 2. Encephalopathy and dementia. 3. Deconditioning. 4. Severe coronary artery disease. 5. Peripheral Arterial disease. 6. Carotid disease and prior CVA. 7. Recommendation continue current cardiovascular medications including IV diuretics. Volume status improving. PT/OT evaluation. MD AYAKA Wilder/VIKKI /[id number] MTDD
[2019-12-23] MEDS: ALBUTEROL SULF 0.083% NEB SOLN 3 ML NEB NEB SCH (23:34)
[2019-12-23 23:49] VITALS: BP 122/76
[2019-12-24] VITALS (8 sets, daily range): BP systolic 94–129; BP diastolic 56–73
[2019-12-24] MEDS: ALBUTEROL SULF 0.083% NEB SOLN 3 ML NEB NEB SCH ×5 (02:20→19:35)
--- NOTE | 2019-12-24 03:27 | History and Physical ---
CHIEF COMPLAINT: Shortness of breath. HISTORY OF PRESENT ILLNESS: Mr. Mistry is an 84-year-old gentleman, who was recently discharged from [facility] and who presented to the hospital complaining of shortness of breath. The patient feels quite congested. He did have a repeat COVID-19 test, which was negative. He denies having chest pain. He has not had a fever. However, reports of having progressive shortness of breath and somewhat confused. He has been having some phlegm and some cough. PAST MEDICAL HISTORY: Recently discharged from the hospital as previously mentioned and underwent an evaluation by Cardiology, Dr. Ryan. He did have a cardiac catheterization. PAST SURGICAL HISTORY: Previous left carotid endarterectomy and right carotid endarterectomy. Cardiac cath done . The patient does have a history of chronic systolic and diastolic heart failure, benign prostatic hypertrophy, coronary artery disease, and hypertension. SOCIAL HISTORY: No tobacco. No alcohol abuse. ALLERGIES: NO KNOWN DRUG ALLERGIES. REVIEW OF SYSTEMS: CONSTITUTIONAL: No fever, no chills. CARDIOVASCULAR: . No swelling in the legs. No blackout spells. RESPIRATORY: See present history. No hemoptysis. GI: No nausea, no vomiting. No diarrhea. GENITOURINARY: No dysuria, hematuria, or frequency. NEUROLOGIC: Nonfocal. PHYSICAL EXAMINATION: VITAL SIGNS: The patient is afebrile. Vital signs; blood pressure 149/80, pulse in the 70s, O2 saturation 97% on room air, respiratory rate 14. HEENT: Head is normocephalic and atraumatic. No facial swelling. NECK: Supple. No JVD. Thyroid gland was not enlarged. LUNGS: Decreased breathing sounds. HEART: Regular rate and rhythm. ABDOMEN: Soft, nontender. EXTREMITIES: No leg edema. NEURO: Nonfocal. LABORATORY DATA: Noted. Hemoglobin 10.4, white blood cell count 6, platelet count 290,000. BUN 26, creatinine 1.12. Chest x-rays, interval development of bilateral small pleural effusions and bibasilar subsegmental atelectasis, bilateral pulmonary venous congestion. ASSESSMENT: 1. Dyspnea and the patient is known to have a history of coronary artery disease. 2. History of acute on chronic mixed systolic and diastolic heart failure. 3. medical deconditioning. 4. Coronary artery disease. 5. Pericardial disease. 6. Status post bilateral carotid endarterectomies. PLAN OF CARE: Continue present care. Cardiology evaluation requested. Reconcile home medications. IV diuretics. PT/OT evaluation. MD MAIRA Christensen/VIKKI /[id number]
[2019-12-24 05:56] LABS: BASOPHILS % 0.2 % (0.0-1.0); EOSINOPHILS % 0.4 % (0.0-6.0); HEMATOCRIT 34.3 % (38.2-49.6); HEMOGLOBIN 10.8 g/dL (14.0-18.0); LYMPHOCYTES # (AUTO) 0.9 (1.0-3.2); LYMPHOCYTES % 10.2 % (18.0-39.1); MEAN CORPUSCULAR HEMOGLOBIN 32.6 pg (28-32); MEAN CORPUSCULAR HGB CONC 31.5 g/dL (31-35); MEAN CORPUSCULAR VOLUME 103.6 fL (81-99); MONOCYTES # (AUTO) 0.8 (0.2-0.8); MONOCYTES % 9.2 % (4.4-11.3); NEUTROPHILS # (AUTO) 6.7 (2.1-6.9); NEUTROPHILS % 79.3 % (38.7-80.0); PLATELET COUNT 320 x10e3/uL (140-360); RED BLOOD COUNT 3.31 x10e6/uL (4.3-5.7); RED CELL DISTRIBUTION WIDTH 13.4 % (11.7-14.4)
[2019-12-24 06:14] LABS: CREATINE KINASE MB 21.5 ng/mL (0-5.0)
--- NOTE | 2019-12-24 06:22 | NUR ---
PAGED MD DUMONT CONCERNING CRITICAL LAB VALUE. AWAITING CALL BACK.
--- NOTE | 2019-12-24 06:23 | NUR ---
ASSESSED PATIENT. PATIENT IS IN NO DISTRESS. NO COMPLAINTS OF CHEST PAIN. ONLY COMPLAINT THROUGHOUT THE NIGHT WAS PHLEGM HE WAS TRYING TO EXPECTORATE. WILL CONTINUE TO MONITOR.
--- NOTE | 2019-12-24 06:35 | NUR ---
SPOKE WITH MD DUMONT, NEW ORDERS RECEIVED. ATTEMPTED TO CALL RESPIRATORY TO INFORM OF STAT EKG, BUT PHONE WAS BUSY. WILL CONTINUE TO TRY.
[2019-12-24 06:45] LABS: ALBUMIN/GLOBULIN RATIO 0.9 (0.8-2.0); ANION GAP 14.2 mmol/L (8-16); CREATININE, SERUM 1.5 mg/dL (0.72-1.25); POTASSIUM 4.2 mmol/L (3.5-5.1)
[2019-12-24] MEDS: LEVOTHYROXINE SODIUM 50 MCG TAB PO SCH (06:55)
[2019-12-24] MEDS: METOPROLOL TARTRATE 25 MG TAB PO SCH ×3 (10:34→21:19)
[2019-12-24] MEDS: TICAGRELOR 90 MG TABLET PO SCH ×2 (10:35→16:24)
[2019-12-24] MEDS: ASPIRIN 81 MG CHEW TAB PO SCH (10:35)
[2019-12-24] MEDS: FUROSEMIDE INJ 10 MG/ML 4 ML VIAL IV SCH ×2 (10:35→21:18)
--- NOTE | 2019-12-24 13:13 | NUR ---
Spoke with Dr. Mascorro and verbal order given to consult Dr. Hyman. Spoke with Dr. Hyman via 3-way conversation on the phone regarding this consult.
--- NOTE | 2019-12-24 14:30 | NUR ---
consult infectious diseases [id number]
--- NOTE | 2019-12-24 15:09 | NUR ---
Attempted to do initial assessment, but pt is asleep. Pt was recently discharged from this facility on December 19, 2019. Went home with [facility]. Rx for abx was called into pt's pharmacy by ID.
--- NOTE | 2019-12-24 15:52 | NUR ---
Nutrition Screen Note RD Recommendation for Physician: - Continue cardiac diet - If PO intake <50% meals, offer Ensure Plan of Care: RD following, monitoring for tolerance and adequacy Nutrition reason for involvement: Diagnosis - CHF Primary Diagnose(s): CHF, hypoxia PMH: chronic systolic and diastolic heart failure, benign prostatic hypertrophy, coronary artery disease, and hypertension Ht: 65 in Wt:169 lb BMI: 28.1 kg/m2 IBW:[address] Assessment: (12/24/19) Chart reviewed. Labs and meds reviewed. Pt is an 84 year old male admitted with CHF and hypoxia. Unable to gather much information from pt. It is recorded that pt consumed 25-50% of meals yesterday. Pt was previously admitted on December 12 and was eating 75-100% of meals during that admission. Per weight history, pt weighed 173 lbs in January 2019. Pt currently weighs 169 lbs; therefore, no significant weight loss is evident. Will continue to monitor. Current Diet: cardiac Malnutrition Evaluation (12/24/19) The patient does not meet criteria for a specified degree of malnutrition at this time. Will re-evaluate at follow-up as appropriate. Diet Education Needs Assessment: RD is available for diet education as needed Nutrition Care Level: low Signed: Renetta Chester, RD, LD
[2019-12-24] MEDS: CEFTRIAXONE SOD 1 GM/NS 50 ML 50 ML IV SCH (16:23)
[2019-12-24] MEDS: ENOXAPARIN SOD INJ 60 MG/0.6 ML SYR SC SCH (16:24)
[2019-12-24] MEDS ORDERED: SODIUM CHLORIDE 0.9% 250ML 250 ML ONE (16:31)
--- NOTE | 2019-12-24 20:19 | Progress Note ---
DATE: SUBJECTIVE: The patient feels better after receiving diuretics. He has less congestion. He still complains of some phlegm in the throat. He is not having fever. PHYSICAL EXAMINATION: VITAL SIGNS: Blood pressure is 109/64, saturation is 99% on a Venturi mask. HEENT: No facial swelling or erythema. CARDIAC: Regular rate and rhythm with normal S1 and S2. LUNGS: Auscultation of the lungs reveals crackles in both lung dickey. There is no wheezing. ABDOMEN: Soft, nontender. There is no rebound or guarding. EXTREMITIES: No leg edema or calf tenderness. IMPRESSION: 1. Acute on chronic systolic congestive heart failure. 2. Anemia. 3. Chronic renal failure, stage II. 4. Benign prostatic hypertrophy. 5. Prior cerebrovascular accident. PLAN: 1. Continue Lasix and current cardiac regimen. 2. Complete Cardiology evaluation. 3. Wean oxygen. 4. Antibiotics. 5. Continue to monitor blood counts. Conrado Brambila MD [facility]/VIKKI /[id number]
--- NOTE | 2019-12-24 21:00 | Progress Note ---
DATE: 12/24/2019 Cardiology Progress Note. SUBJECTIVE: Mr. Mistry denies any chest pain or shortness of breath. OBJECTIVE: VITAL SIGNS: Temperature 98.1, heart rate 81, blood pressure 118/68, respiratory rate 22, O2 saturation 97%. GENERAL: In no acute distress. Alert. NECK: No JVD. CHEST: Decreased breath sounds in bilateral bases. CARDIOVASCULAR: Regular rate and rhythm. Normal S1 and S2. No S3 or S4. Systolic ejection murmur. ABDOMEN: Soft. Bowel sounds positive. EXTREMITIES: Tace edema. CARDIOVASCULAR MEDICATIONS: Reviewed. Aspirin 81 mg daily, Brilinta 90 mg b.i.d., atorvastatin 40 mg at bedtime, furosemide 40 mg every 12 hours, metoprolol tartrate 12.5 mg every 8 hours. STUDIES: Reviewed. Creatinine 1.5, potassium 4.2, bicarbonate 25, sodium 140. White blood cells 8.4, hemoglobin 10.8, platelets 320. INR 1. AST 40, ALT 36. ASSESSMENT AND PLAN: 1. An 84-year-old man presents with acute on chronic mixed systolic and diastolic heart failure. 2. Severe multivessel coronary artery disease with recurrent type 2 myocardial infarction. 3. Anemia. 4. Hypertension and dyslipidemia. 5. Cerebrovascular disease and history of carotid disease. RECOMMEND: I discussed at length with the patient as well as with the recommended plan up titrate beta-marc. Continue antiplatelets. Offered repeat coronary angiography to further evaluate coronary anatomy given recurrent non-STEMI. The patient declines procedure. In the past, several coronary angiograms and the level of severity of his CAD has left medical management as the recommended course of action. I doubt a repeat angiogram would lead to different recommended plan of care, however, coronary angiography has been offered should the patient decide to proceed. At this point, he is declining. Continue current care. MD AYAKA Wilder/VIKKI /[id number] MTDD
[2019-12-24] MEDS: ATORVASTATIN 20 MG TAB PO SCH (21:18)
--- NOTE | 2019-12-24 22:35 | Consultation ---
DATE OF CONSULTATION: REASON FOR CONSULTATION: Shortness of breath and pneumonia. HISTORY OF PRESENT ILLNESS: Mr. Peña is 84-year-old, male, who comes in with shortness of breath. The patient who has history of atherosclerotic heart disease, coronary artery disease, two carotid endarterectomies, on each side, myocardial infarction in August 2018, had cardiac catheterization, showed occluded left anterior descending artery with a filling from the collateral. The patient comes in with shortness of breath. His COVID test was negative. The patient was here recently on December 12 with shortness of breath. His COVID-19 at that time was also negative. The patient comes in with shortness of breath . The patient was seen by Cardiology, seen by Pulmonary, I am asked to see him. When I saw the patient, currently lying in bed comfortably. He was seen by Cardiology, felt he has acute on chronic congestive heart failure and deconditioning. The patient is from the patient and from the chart. LABORATORY DATA: Reviewed. His white count 8.46, hemoglobin 10. His COVID is negative. Sodium 140, potassium 4.2 creatinine of 1.50. PHYSICAL EXAMINATION: GENERAL: He is currently alert, does not seem to be in acute distress, good source of information. VITAL SIGNS: Stable, currently afebrile. HEENT: He is not icteric. NECK: Supple. CHEST: Crackles bilateral. HEART: S1 and S2. No S3, S4, or murmur. ABDOMEN: Soft. Bowel sounds present. No tenderness. EXTREMITIES: No edema. SKIN: No rash. When he first came in, his BNP was 1182. The patient was currently on Lasix, aspirin, and levothyroxine. LABORATORY DATA: Chest x-ray was on showed bilateral small pleural effusion with congestion. ASSESSMENT AND PLAN: The patient has shortness of breath. Apparently, the patient got a lot worse today. He may have a component of aspiration. We will add Rocephin 1 g daily and I think the main problem is the congestive heart failure. Continue with diuresis as ordered. Cardiology is following. He is also on Lovenox. We will follow. MD EVA Cali/VIKKI /[id number]
[2019-12-25] VITALS: BP 110/62
[2019-12-25] MEDS: ALBUTEROL SULF 0.083% NEB SOLN 3 ML NEB NEB SCH ×6 (00:10→18:35)
[2019-12-25 04:00] VITALS: BP 110/57
[2019-12-25] MEDS: LEVOTHYROXINE SODIUM 50 MCG TAB PO SCH (05:07)
[2019-12-25] MEDS: METOPROLOL TARTRATE 25 MG TAB PO SCH ×2 (05:09→14:34)
[2019-12-25 05:42] LABS: BASOPHILS # (AUTO) 0.1 (0.0-0.1); BASOPHILS % 0.8 % (0.0-1.0); EOSINOPHILS # (AUTO) 0.4 (0.0-0.4); EOSINOPHILS % 4.7 % (0.0-6.0); HEMOGLOBIN 10.1 g/dL (14.0-18.0); LYMPHOCYTES # (AUTO) 1.7 (1.0-3.2); MEAN CORPUSCULAR HEMOGLOBIN 32.2 pg (28-32); MEAN CORPUSCULAR HGB CONC 31.6 g/dL (31-35); MEAN CORPUSCULAR VOLUME 101.9 fL (81-99); MONOCYTES # (AUTO) 0.8 (0.2-0.8); MONOCYTES % 9.9 % (4.4-11.3); NEUTROPHILS # (AUTO) 4.7 (2.1-6.9); NEUTROPHILS % 62.2 % (38.7-80.0); PLATELET COUNT 324 x10e3/uL (140-360); RED BLOOD COUNT 3.14 x10e6/uL (4.3-5.7); RED CELL DISTRIBUTION WIDTH 13.6 % (11.7-14.4)
[2019-12-25 06:08] LABS: ALBUMIN 2.8 g/dL (3.5-5.0); ALBUMIN/GLOBULIN RATIO 0.9 (0.8-2.0); ANION GAP 14.8 mmol/L (8-16); CREATININE, SERUM 1.36 mg/dL (0.72-1.25); POTASSIUM 3.8 mmol/L (3.5-5.1)
[2019-12-25 07:41] VITALS: BP 109/58
[2019-12-25 08:11] VITALS: BP 109/58
[2019-12-25] MEDS: FUROSEMIDE INJ 10 MG/ML 4 ML VIAL IV SCH (08:54)
[2019-12-25] MEDS: TICAGRELOR 90 MG TABLET PO SCH ×2 (08:54→16:25)
[2019-12-25] MEDS: ASPIRIN 81 MG CHEW TAB PO SCH (08:54)
--- NOTE | 2019-12-25 09:16 | Diagnostic Imaging Report ---
EXAMINATION: CHEST 2 VIEWS INDICATION: CHF COMPARISON: Chest radiograph 12/22/2019 FINDINGS: LINES/TUBES:EKG leads overlie the chest. LUNGS:The lungs are moderately inflated. Right greater than left bibasilar hazy opacities. PLEURA:Layering right pleural effusion. No pneumothorax. MEDIASTINUM: Unchanged mild enlargement of the cardiomediastinal silhouette. Atherosclerotic calcifications of the thoracic aorta. BONES/SOFT TISSUES:No acute osseous injury. ABDOMEN:No free air under the diaphragm. IMPRESSION: Hazy right greater than left bibasilar opacities may represent a component of edema however pneumonitis could also have this appearance and should be excluded clinically. New layering right pleural effusion. Signed by: Ventura Koehler MD on 12/25/2019 9:13 AM
[2019-12-25 11:49] VITALS: BP 122/68
--- NOTE | 2019-12-25 14:54 | NUR ---
Spoke to pt at bedside regarding home health. He states to call his son Tesfaye. CM spoke with Tesfaye and received consent to resume services with [facility]. Choice letter placed in front of chart. Also discussed IMM letter. He verbalized understanding and states his dad was already ready to go home yesterday. Signed copy in chart. Copy to pt's room. Resumption order and clinical for HH faxed to [facility] at [phone] / . Notified of anticipated dc today.
[2019-12-25 16:01] VITALS: BP 114/66
[2019-12-25] MEDS: CEFTRIAXONE SOD 1 GM/NS 50 ML 50 ML IV SCH (16:25)
[2019-12-25] MEDS: ENOXAPARIN SOD INJ 60 MG/0.6 ML SYR SC SCH (16:25)
--- NOTE | 2019-12-25 17:00 | Progress Note ---
DATE: SUBJECTIVE: The patient is seen and evaluated. Available labs and notes reviewed. REVIEW OF SYSTEMS: The patient tells me that he is doing fine and he has no medical issues. He is just waiting for his doctor. PHYSICAL EXAMINATION: VITAL SIGNS: Temperature 98.1, pulse is 80, respirations 17, and blood pressure 122/68. GENERAL: Alert and oriented. No acute distress, sitting in a chair. CV: S1 and S2. CHEST: Equal expansion. Decreased breath sounds. No acute distress. ABDOMEN: Soft, obese, and nontender. HEENT: Moist. No pallor. No JVD. EXTREMITIES: Weak. Moves all. MEDICATIONS: Medication list reviewed and from ID point of view, the patient is on Rocephin. LABORATORY STUDIES: White count of 7.58, hemoglobin 10.1, and platelet 324. Sodium 140, potassium 3.8, and creatinine 1.36. Creatinine improved. Urine culture, negative 48 hours on 12/22/2019. IMAGING: Chest x-ray from today showed hazy right greater than left bibasilar opacities, may represent a component of edema; however, pneumonitis could also have this appearance. The patient also has new layering right pleural effusion. ASSESSMENT AND PLAN: 1. Shortness of breath. 2. Pleural effusion. 3. Possible pulmonary edema. 4. Anemia. 5. Hypertension. 6. Hyperlipidemia. 7. The patient was offered angioplasty by Cardiology, which was declined by Cardiology note. Continue with antibiotics. Monitor the patient clinically. Further management of this patient is based on daily findings on laboratory and physical examination. Dictated by Ash Tai PA-C (Al) Kim Hyman MD /MODL /[id number]
[2019-12-25] MEDS ORDERED: FUROSEMIDE 40 MG TAB PO SCH (18:00)
[2019-12-25] MEDS ORDERED: CEFDINIR300 MG PO (18:54)
[2019-12-25] MEDS ORDERED: METOPROLOL TART25 MG PO (18:54)
[2019-12-25] MEDS ORDERED: FUROSEMIDE40 MG PO (18:57)
--- NOTE | 2019-12-25 22:46 | Progress Note ---
DATE: 12/25/2019 Cardiology Progress Note SUBJECTIVE: Denies any chest pain or shortness of breath. Feels better overall. OBJECTIVE: VITAL SIGNS: Temperature 98.4, heart rate 78, blood pressure 109/58, respiratory rate 18, O2 saturation 98%, BMI 28. GENERAL: In no acute distress. Frail, alert. NECK: No JVD with bilateral carotid endarterectomy scars. CHEST: Clear to auscultation bilaterally. CARDIOVASCULAR: Regular rate and rhythm. Normal S1 and S2. No S3 or S4. Systolic ejection murmur. ABDOMEN: Soft. Bowel sounds positive. EXTREMITIES: No edema. Warm distal extremities. CARDIOVASCULAR MEDICATIONS: Reviewed. Metoprolol tartrate 12.5 mg q.8 hours, aspirin 81 mg daily, Brilinta 90 mg every 12 hours, Lovenox 60 mg subcu daily, atorvastatin 40 mg at bedtime, furosemide transitioned to 40 mg b.i.d. p.o. STUDIES: Reviewed. Sodium 140, potassium 3.8, chloride 102, bicarbonate 27, BUN 34 and creatinine 1.36, glucose 85, white blood cell 7.5, hemoglobin 10.1, platelets 324. INR 1. AST 32, ALT 31, and alkaline phosphatase 74, total bilirubin 0.5. ASSESSMENT AND PLAN: An 84-year-old man presents with: 1. 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 2. Chronic kidney disease. 3. Coronary artery disease, severe multivessel calcific. 4. Carotid disease, status post bilateral endarterectomy. 5. Hypothyroidism. 6. Hypertension. 7. Dyslipidemia. 8. Anemia. RECOMMEND: Continue current cardiovascular medications. Outpatient close followup with primary care and cardiovascular medicine. Diuretic adjustments as needed as outpatient, daily weights, low-sodium diet and alarm signs have been discussed with the patient and with . Hua Ryan MD AFV/MODL /[id number]
--- NOTE | 2019-12-26 05:17 | Discharge Summary ---
PRIMARY CARE DOCTOR: Red Osuna MD HOSPITALIST: Dr. Mike Mascorro. PRIMARY DIAGNOSIS: Fluid overload. SECONDARY DIAGNOSIS: Include small pleural effusion, chronic kidney disease, hypertension, pre-existing urinary tract infection, benign prostatic hyperplasia with indwelling Almonte, and stroke. HOSPITAL COURSE: The patient admitted with shortness of breath. Chest x-ray with some fluid overload and some worsening pleural effusions. The patient was given diuresis. Blood pressure is controlled. He was offered a heart catheterization by warehouse general laborer due to recurrent heart problems recently. The patient wants conservative therapy. Recent echocardiogram done this month showed left ventricular ejection fraction of 40%. At this point, the patient was allowed to go home with outpatient followup with his indwelling Almonte that he came into the hospital with. FOLLOWUP: Dr. Briceno of Cardiology. Dr. Osuna, PCP. Almonte is managed by Dr. Geovani Cordon. MEDICATIONS AT DISCHARGE: Include as per discharge medication record. Diuretics were increased. ACTIVITY: As tolerated. DIET: Cardiac diet, including low-sodium. Greater than 30 minute spent in coordinating this discharge. MD JASPREET Street/DENNISL /[id number]
== END 2019-12-25 20:08 | disposition home or self-care (01) | DRG 291 ==
LOC: ER 18:54 → ERHOLD 12-23 10:52 → MED/SURG2 12-23 12:51
PROVIDERS: ADMIT Internal Medicine; ATTEND Internal Medicine
DX: I13.0 Hypertensive heart and chronic kidney disease with heart failure and stage 1 through stage 4 chronic kidney disease, or unspecified chronic kidney disease (principal); I50.43 Acute on chronic combined systolic (congestive) and diastolic (congestive) heart failure; E11.22 Type 2 diabetes mellitus with diabetic chronic kidney disease; N18.9 Chronic kidney disease, unspecified; Z79.4 Long term (current) use of insulin
CPT/HCPCS: 36415; 71045; 71046; 80053; 81001; 82550; 82553; 83880; 84484; 85025; 85610; 85730; 87086; 87635; 93041; 94640; 96374; 99285; J0456; J0696; J1100; J1650; J1940; J7050

== ENCOUNTER 2020-05-08 19:41 | Emergency (ER) | payer MEDICARE ==
[~2020-05-08] VITALS: Ht 165.1 cm; Wt 76.7 kg
[~2020-05-08 19:41] MED LIST changes: +CEFDINIR300 MG PO; +FUROSEMIDE40 MG PO
--- NOTE | 2020-05-08 20:17 | Emergency Department Note ---
History of Present Illnes History of Present Illness Chief Complaint: urine leakage around around suprapubic catheter and penis History of Present Illness This is a 84 year old male. pt denies pain Arrival Mode: Car History limited by: condition of the patient (normal) [employer] Required: No Onset (how long ago): hour(s) (10) Location: see above Quality: n/a Radiation: Reports non-radiation Severity: mild Onset quality: gradual Duration (how long): hour(s) (10) Progression: unchanged Chronicity: new Context: Denies recent illness, Denies recent surgery, Denies recent immobilization, Denies recent travel, Denies trauma/injury, Denies new medications, Denies hx of DVT/PE, Denies non-compliance w/ medications Relieving factors: none Exacerbating factors: none Associated symptoms: Reports denies other symptoms Treatments prior to arrival: none Past Medical/Family History Physician Review I have reviewed the patient's past medical and family history. Any updates have been documented here. Past Medical History Past Medical History: Hypertension, TIA, CAD, UTI's, GERD Past Surgical History: Appendectomy Other Surgery: Carodid Endartectomy 10 years ago TIA 15 years ago Appendectomy in his youth(does not remember age) CEA 02/18/19 Social History Smoking Cessation: Never Smoker Counseling Performed: No Any Illegal Drug Use: No TB Exposure/Symptoms: No Physically hurt or threatened: No Family History Family history of heart diseas: No Other Last Tetanus: UNKNOWN Any Pre-Existing Lines (PICC,: No Is patient up to date on immun: No Review of Systems Review of Systems Constitutional: Reports no symptoms EENTM: Reports no symptoms Cardiovascular: Reports no symptoms Respiratory: Reports no symptoms Gastrointestinal: Reports no symptoms Genitourinary: Reports as per HPI Musculoskeletal: Reports no symptoms Integumentary: Reports no symptoms Neurological: Reports no symptoms Psychological: Reports no symptoms Endocrine: Reports no symptoms Hematological/Lymphatic: Reports no symptoms Review of other systems: All other systems negative Physical Exam Related Data Allergies: Coded Allergies: No Known Allergies (Unverified , 12/14/11) Vital signs reviewed: Yes Physical Exam CONSTITUTIONAL Constitutional: Present well-developed, Present well-nourished HENT HENT: Present normocephalic, Present atraumatic, Present oropharynx clear/moist, Present nose normal HENT L/R: Present left ext ear normal, Present right ext ear normal EYES Eyes: Reports PERRL, Reports conjunctivae normal NECK Neck: Present ROM normal PULMONARY Pulmonary: Present effort normal, Present breath sounds normal CARDIOVASCULAR Cardiovascular: Present regular rhythm, Present heart sounds normal, Present capillary refill normal, Present normal rate GASTROINTESTINAL Abdominal: Present soft, Present nontender, Present bowel sounds normal, Present other (+suprapubic catheter in place and urine draing) GENITOURINARY SKIN Skin: Present warm, Present dry MUSCULOSKELETAL Musculoskeletal: Present ROM normal NEUROLOGICAL Neurological: Present alert, Present oriented x 3, Present no gross motor or sensory deficits PSYCHOLOGICAL Psychological: Present mood/affect normal, Present judgement normal Assessment & Plan Medical Decision Making MDM urine incontinence Assessment & Plan Final Impression: (1) Incontinence of urine Depart Disposition: HOME, SELF-group home Meds Active Scripts Furosemide (FUROSEMIDE) 40 Mg Tablet, 40 MG PO BID@06,18 for 30 Days, 0 Refills Prov:MJ SINGH MD, ABIM 12/25/19 Cefdinir (OMNICEF) 300 Mg Capsule, 300 MG PO BID for 4 Days, CAP 0 Refills Prov:MJ SINGH MD, ABIM 12/25/19 Metoprolol Tartrate (METOPROLOL TARTRATE) 25 Mg Tablet, 12.5 MG PO TID for 30 Days, TAB 0 Refills Prov:MJ SINGH MD, ABIM 12/25/19 Reported Medications Ticagrelor (BRILINTA) 90 Mg Tablet, 90 MG PO BID 12/13/19 Aspirin (ASPIR 81) 81 Mg Tablet.dr, 81 MG PO DAILY 12/13/19 Atorvastatin Calcium (LIPITOR) 20 Mg Tablet, 40 MG PO HS, #30 TAB 01/08/19 Levothyroxine Sodium (Levoxyl) 50 Mcg Tablet, 50 MCG PO DAILY 12/14/11 SHRUTI ANDERSON May 08, 2020 20:17
== END 2020-05-08 21:16 | disposition home or self-care (01) ==
LOC: FSED 20:00
DX: R32 Unspecified urinary incontinence (principal); I10 Essential (primary) hypertension; I25.10 Atherosclerotic heart disease of native coronary artery without angina pectoris; K21.9 Gastro-esophageal reflux disease without esophagitis; G45.9 Transient cerebral ischemic attack, unspecified
CPT/HCPCS: 99282

== ENCOUNTER 2020-05-09 10:45 | Emergency (ER) | payer MEDICARE ==
[~2020-05-09] VITALS: Ht 165.1 cm; Wt 76.7 kg
--- NOTE | 2020-05-09 11:40 | NUR ---
bladder scan volume 192 ML, Dr. Swain notified
[2020-05-09 12:42] LABS: BILIRUBIN,URINE NEGATIVE (NEGATIVE); CLARITY,URINE HAZY (CLEAR); COLOR,URINE YELLOW (YELLOW); KETONES,URINE NEGATIVE (NEGATIVE); LEUKOCYTE ESTERASE ,URINE LARGE (NEGATIVE); NITRITE,URINE NEGATIVE (NEGATIVE); PROTEIN,URINE DIPSTICK NEGATIVE (NEGATIVE); URINE UROBILINOGEN 0.2 mg/dL (0.2 - 1)
[2020-05-09 12:55] LABS: BACTERIA,URINE MODERATE /HPF; EPITHELIAL CELLS,URINE FEW /LPF; WBC,URINE (MAN) 21-50 /HPF (0-5)
--- NOTE | 2020-05-09 13:18 | Emergency Department Note ---
History of Present Illnes History of Present Illness Chief Complaint: Genitourinary History of Present Illness This is a 84 year old male CULTURAL LINK: Nancy FERRIS [id number] SEEN AT [facility]. BECAUSE NO URINE WAS DRAINING SINCE YESTERDAY. THEY CHANGED THE BAG BUT NOT THE CATHETER. THEY STATE THEY WERE SENT HOME AND NO URINE WAS DRAINING BUT IT WAS LEAKING AROUND THE PENIS. THEY WERE TOLD TO FOLLOW UP A UROLOGIST HE IS BACK TODAY BECAUSE HE WANTS THE ENTIRE SUPRAPUBIC CATHETER CHANGED. Historian: Patient Veterinary Radiologist Required: Yes Location: SUPRAPUBIC Quality: CATH NOT FLOWING, NO UOP FROM SUPRAPUBIC Radiation: Reports non-radiation Severity: mild Onset quality: gradual Timing of current episode: constant Chronicity: new Context: Denies recent illness Relieving factors: none Exacerbating factors: none Associated symptoms: Reports denies other symptoms Past Medical/Family History Physician Review I have reviewed the patient's past medical and family history. Any updates have been documented here. Past Medical History Recent Fever: No Clinical Suspicion of Infectio: No New/Unexplained Change in Ment: No Past Medical History: Hypertension, TIA, CAD, UTI's, GERD Past Surgical History: Appendectomy Other Surgery: Carodid Endartectomy 10 years ago TIA 15 years ago Appendectomy in his youth(does not remember age) CEA 02/18/19 SUPRAPUBIC CATHETER Social History Smoking Cessation: Never Smoker Counseling Performed: No Alcohol Use: None Any Illegal Drug Use: No TB Exposure/Symptoms: No Physically hurt or threatened: No Family History Family history of heart diseas: No Other Last Tetanus: UNKNOWN Any Pre-Existing Lines (PICC,: No Review of Systems Review of Systems Constitutional: Reports no symptoms EENTM: Reports no symptoms Cardiovascular: Reports no symptoms Respiratory: Reports no symptoms Gastrointestinal: Reports no symptoms Genitourinary: Reports as per HPI Musculoskeletal: Reports no symptoms Integumentary: Reports no symptoms Neurological: Reports no symptoms Psychological: Reports no symptoms Endocrine: Reports no symptoms Hematological/Lymphatic: Reports no symptoms Physical Exam Related Data Allergies: Coded Allergies: No Known Allergies (Unverified , 05/09/20) Triage Vital Signs Vital Signs Date Time Temp Pulse Resp B/P (MAP) Pulse Ox O2 Delivery O2 Flow Rate FiO2 05/09/20 10:54 98.8 88 18 152/79 97 Vital signs reviewed: Yes Physical Exam CONSTITUTIONAL Constitutional: Present well-developed, Present well-nourished HENT HENT: Present normocephalic, Present atraumatic, Present oropharynx clear/moist, Present nose normal HENT L/R: Present left ext ear normal, Present right ext ear normal EYES Eyes: Reports PERRL, Reports conjunctivae normal NECK Neck: Present ROM normal PULMONARY Pulmonary: Present effort normal, Present breath sounds normal CARDIOVASCULAR Cardiovascular: Present regular rhythm, Present heart sounds normal, Present capillary refill normal, Present normal rate GASTROINTESTINAL Abdominal: Present soft, Present nontender, Present bowel sounds normal, Present other (FULLNESS OF BLADDER, SUPRAPUBIC CATH (18FR W/ 10 CC BALLOON) IN PLACE) GENITOURINARY Genitourinary: Present exam deferred SKIN Skin: Present warm, Present dry MUSCULOSKELETAL Musculoskeletal: Present ROM normal NEUROLOGICAL Neurological: Present alert, Present oriented x 3, Present no gross motor or sensory deficits PSYCHOLOGICAL Psychological: Present mood/affect normal, Present judgement normal Results Laboratory Laboratory Laboratory Tests Test 05/09/20 12:36 Urine Color Yellow (YELLOW) Urine Clarity Hazy (CLEAR) Urine pH 7.5 (5 - 7) Urine Specific [place] 1.025 (1.010-1.025) Urine Protein Negative (NEGATIVE) Urine Glucose (UA) Negative (NEGATIVE) Urine Ketones Negative (NEGATIVE) Urine Blood Moderate (NEGATIVE) Urine Nitrite Negative (NEGATIVE) Urine Bilirubin Negative (NEGATIVE) Urine Urobilinogen 0.2 mg/dL (0.2 - 1) Urine Leukocyte Esterase Large (NEGATIVE) Urine RBC 11-20 /HPF (0-5) Urine WBC 21-50 /HPF (0-5) Urine Epithelial Cells Few /LPF (NONE) Urine Bacteria Moderate /HPF (NONE) Lab results reviewed: Yes Procedures Catheter Insertion Date of Insertion: May 09, 2020 Time of insertion: 12:37 Reason for placing catheter: acute urinary retention (SUPRAPUBIC CATH NOT DRAINING) Topical anesthesia used: No Catheter type/location: suprapubic Size (spanish): 22 Catheter balloon size (mL): 30 Catheter balloon amount: 30 Results: successful - immediate flow Procedure performed: without complications Assessment & Plan Medical Decision Making MDM SUPRAPUBIC CATH DYSFUNCTION - I SPOKE WITH DR Mariposa SHAY - I WILL REPLACE CATH WITH A 22FR CATH W/ 30CC BALLOON Reassessment Reassessment CATHETER SWITCHED - IMMEDIATE FLOW OF URINE. DC HOME, CEFTIN, F/U DR SHAY ON TUES SCHEDULED Assessment & Plan Final Impression: (1) Suprapubic catheter dysfunction (2) Urinary tract infection Depart Disposition: HOME, SELF-CARE Last Vital Signs Date Time Temp Pulse Resp B/P (MAP) Pulse Ox O2 Delivery O2 Flow Rate FiO2 05/09/20 10:54 98.8 88 18 152/79 97 Home Meds Active Scripts Furosemide (FUROSEMIDE) 40 Mg Tablet, 40 MG PO BID@18 for 30 Days, 0 Refills Prov:MJ SINGH MD, ABIM 12/25/19 Cefdinir (OMNICEF) 300 Mg Capsule, 300 MG PO BID for 4 Days, CAP 0 Refills Prov:MJ SINGH MD, ABIM 12/25/19 Metoprolol Tartrate (METOPROLOL TARTRATE) 25 Mg Tablet, 12.5 MG PO TID for 30 Days, TAB 0 Refills Prov:MJ SINGH MD, ABIM 12/25/19 Reported Medications Ticagrelor (BRILINTA) 90 Mg Tablet, 90 MG PO BID 12/13/19 Aspirin (ASPIR 81) 81 Mg Tablet., 81 MG PO DAILY 12/13/19 Atorvastatin Calcium (LIPITOR) 20 Mg Tablet, 40 MG PO HS, #30 TAB 01/08/19 Levothyroxine Sodium (Levoxyl) 50 Mcg Tablet, 50 MCG PO DAILY 12/14/11 Medications in the ED Ceftriaxone Sodium 1 gm ONCE ONCE IM ; Start 05/09/20 at 13:15; Stop 05/09/20 at 13:16; Status UNV JUSTINO INFANTE MD May 09, 2020 13:18
[2020-05-09] MEDS ORDERED: CEFTRIAXONE SOD 1 GM VIAL IM NR (13:30)
[2020-05-09 13:35] VITALS: BP 114/67
[2020-05-09] MEDS ORDERED: LIDOCAINE HCL 1% 2 ML AMP ONE (13:36)
== END 2020-05-09 13:37 | disposition home or self-care (01) ==
LOC: ER 11:04
DX: Z43.5 Encounter for attention to cystostomy (principal); I10 Essential (primary) hypertension; I25.10 Atherosclerotic heart disease of native coronary artery without angina pectoris; K21.9 Gastro-esophageal reflux disease without esophagitis; Z86.73 Personal history of transient ischemic attack (TIA), and cerebral infarction without residual deficits
CPT/HCPCS: 51702; 81001; 87086; 87186; 99283; J0696; J2001